=== PATIENT | male | born 1995 | race African-American/Black ===

== ENCOUNTER 2016-07-18 12:26 | Emergency (ER) | payer OTHER, SELFPAY ==
[2016-07-18 13:49] LABS: BASO % 0.5 % (0.0-1.0); EOS # 0.4 K/mm3 (0.0-0.50); EOS % 7.1 % (0.0-3.0); LARGE UNSTAINED CELL # 0.2 K/mm3 (0.0-0.4); LARGE UNSTAINED CELL % 2.7 % (0.0-4.0); LYMPH # 2.2 K/mm3 (1.5-6.5); MEAN CORPUSCULAR HEMOGLOBIN 31.2 pg (27.0-33.0); MEAN CORPUSCULAR HGB CONC 35.1 g/dl (32.0-36.5); MONO # 0.4 K/mm3 (0.0-0.8); NEUTROPHILS # 2.8 K/mm3 (1.8-7.7); NEUTROPHILS % 47.6 % (36.0-66.0); PLATELET COUNT, AUTOMATED 224 k/mm3 (150-450); RED CELL DISTRIBUTION WIDTH 11.5 % (11.5-14.5)
[2016-07-18 14:05] LABS: ALBUMIN 3.7 GM/DL (3.2-5.2); ALBUMIN/GLOBULIN RATIO 1.19 (1.00-1.93); ALKALINE PHOSPHATASE 118 U/L (45-117); ALT/SGPT 33 U/L (12-78); ANION GAP 10 MEQ/L (8-16); AST/SGOT 25 U/L (15-37); BILIRUBIN,DIRECT 0.1 MG/DL (0.0-0.2); BILIRUBIN,TOTAL 0.3 MG/DL (0.2-1.0); BLOOD UREA NITROGEN 18 MG/DL (7-18); CALCIUM LEVEL 8.6 MG/DL (8.5-10.1); CARBON DIOXIDE LEVEL 26 MEQ/L (21-32); CHLORIDE LEVEL 110 MEQ/L (98-107); CREATININE FOR GFR 0.89 MG/DL (0.70-1.30); GLOMERULAR FILTRATION RATE > 60.0 (>60); GLUCOSE, FASTING 89 MG/DL (70-105); POTASSIUM SERUM 3.7 MEQ/L (3.5-5.1); SODIUM LEVEL 146 MEQ/L (136-145); TOTAL PROTEIN 6.8 GM/DL (6.4-8.2)
--- NOTE | 2016-07-18 15:04 | REP ---
Clinical: Right-sided pain. Comparison: 06/01/2016. Findings: Examination is limited by paucity of intraperitoneal fat along with lack of intravenous and oral contrast. Kidneys demonstrate nephrolithiasis with small bilateral intrarenal calculi measuring up to 2 mm and no obvious hydronephrosis/hydroureter or obstructing ureteral calculi. Liver, spleen, pancreas, collapsed gallbladder, bilateral adrenal glands are normal for noncontrast evaluation. The enteric system is without obvious obstruction or acute inflammatory process. Normal appendix identified in the right lower quadrant. Pelvis demonstrates normal bladder and age appropriate prostate/seminal vesicles. No obvious free fluid. No free air. Lung bases clear. Impression: Limited examination as noted above. No obvious acute intra-abdominal or pelvic pathology is appreciated. Nephrolithiasis noted correlation with urinalysis is recommended and if necessary post contrast CT may be were obtained. Signed by Yuniel Mathew MD 07/18/2016 02:55 P
[2016-07-18] MEDS ORDERED: KETOROLAC 30 MG/ML VIAL (J1885) As Ordered ONE (15:53)
--- NOTE | 2016-07-18 16:21 | EDDOCDS ---
Physician Documentation [facility] Name: Migue Salvador Age: 21 yrs Sex: Male : 1995 Arrival Date: 07/18/2016 Time: 12:26 Bed 18 Private MD: Koby Jose W Disposition: 07/18/16 15:54 Discharged to Home/Self Care. Impression: Hematuria, unspecified, Calculus of kidney. - Condition is Stable. - Discharge Instructions: Hematuria, Adult, Kidney Stones. - Medication Reconciliation, Local Pharmacy Hours form. - [facility]; When: Call to arrange an appointment; Reason: Recheck today's complaints. Follow up: [facility]; When: Call to arrange an appointment; Reason: Continuance of care. - Problem is new. - Symptoms have improved. Historical: - Allergies: no known allergies; - Home Meds: 1. none - PMHx: Kidney stones; - PSHx: R foot surgery; R arm surgery; R wrist surgery; - Social history: Smoking status: Patient states was never smoker of tobacco. No barriers to communication noted, The patient speaks fluent Greenlandic. - Family history: Not pertinent. - : The pt / caregiver states he / she is not on anticoagulants. Home medication list is obtained from the patient. - Exposure Risk Screening:: None identified. Vital Signs: 07/18 12:28 BP 139 / 64; Pulse 65; Resp 18 S; Temp 96.2(O); Pulse Ox 100% on R/A; Weight 68.04 kg / gr2 150 lbs (R); Height 6 ft. 0 in. (182.88 cm) (R); Pain 8/10; 16:16 BP 116 / 70; Pulse 60; Resp 18; Temp 96.8(O); Pulse Ox 99% on R/A; Pain 6/10; nb2 12:28 Body Mass Index 20.34 (68.04 kg, 182.88 cm) gr2 MDM: 13:18 Undress patient appropriately for examination ordered. fg 13:18 IV Saline Lock ordered. fg 13:19 Basic Metabolic Profile Ordered. EDMS 13:19 CBC with Diff Ordered. EDMS 13:19 Lipase Ordered. EDMS 13:19 Liver Profile Ordered. EDMS 13:19 Urinalysis Ordered. EDMS 13:19 Urine Culture Ordered. EDMS 13:19 NOTHING BY MOUTH+DIET ordered. EDMS 13:40 Financial registration complete. lg 14:08 CT ABD & PELVIS: No Contrast Ordered. EDMS 15:10 [facility] Payment Agreement was scanned into [employer] and attached to record. lg 15:50 ketorolac 30 mg IVP once ordered. fg Administered Medications: 15:57 Drug: ketorolac 30 mg [ketorolac 30 mg/mL (1 mL) injection solution (1 mL)] Route: IVP; jmk Site: right antecubital; Signatures: Dispatcher [employer] EDMS Emili Moseley, RN RN srm Pedro Cruz, Reg Reg Gabbie Serna RN RN hs1 Vidya Simental RN RN ms18 Laura De La Cruz MD MD Matthew Molina RN The chart was reviewed and I authenticate all verbal orders and agree with the evaluation and treatment provided.Attachments: 15:10 [facility] Payment Agreement lg MTDD
--- NOTE | 2016-07-18 16:21 | EDDOCDS ---
[facility] Name: Migue Salvador Age: 21 yrs Sex: Male : 1995 Arrival Date: 07/18/2016 Time: 12:26 Bed 18 Private MD: Koby Jose W Diagnosis: Hematuria, unspecified;Calculus of kidney Presentation: 07/18 12:47 Presenting complaint: Patient states: that he has kidney stones and has pain on his R ms18 side. Pt also reports "peeing blood at work last night". Acute neurological deficits are not present. Mechanism of Injury: No Mechanism of Injury. Adult Sepsis Screening: The patient does not have new or worsening altered mentation. Patient's respiratory rate is less than 22. Systolic blood pressure is greater than 100. Patient has a qSOFA score of 0- Negative Sepsis Screen. Suicide/Homicide risk assessment- the patient denies having any suicidal and/or homicidal ideations and does not present with any other emotional, behavioral or mental health complaints. 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 Transition of care: patient was not received from another setting of care. 12:47 Acuity: AMINATA Level 3 ms18 12:47 Method Of Arrival: Walkin/Carried/Asstd ms18 Triage Assessment: 12:50 General: Appears in no apparent distress, slender, uncomfortable, Behavior is ms18 appropriate for age, cooperative. Pain: Location: right flank Pain currently is 10 out of 10 on a pain scale. HIV screening NA for this visit Offered previously. Neurological: Level of Consciousness is awake, alert, obeys commands, Oriented to person, place, time. Respiratory: No deficits noted. Derm: Skin is pink, warm & dry. Musculoskeletal: No deficits noted. Historical: - Allergies: no known allergies; - Home Meds: 1. none - PMHx: Kidney stones; - PSHx: R foot surgery; R arm surgery; R wrist surgery; - Social history: Smoking status: Patient states was never smoker of tobacco. No barriers to communication noted, The patient speaks fluent Slovenian. - Family history: Not pertinent. - : The pt / caregiver states he / she is not on anticoagulants. Home medication list is obtained from the patient. - Exposure Risk Screening:: None identified. Screenin:08 Screening information is obtained from the patient. Fall risk: No risks identified. srm Assistance ADL's: requires no assistance with activities of daily living. Abuse/DV Screen: The patient / caregiver reports he/she is: not in a situation that causes fear, pain or injury. Nutritional screening: No deficits noted. Advance Directives: There is no active DNR order. home support is adequate. Assessment: 13:08 General: Appears in no apparent distress, Behavior is appropriate for age, cooperative. srm Neurological: No deficits noted. EENT: No deficits noted. GI: Reports diarrhea x3 sat night. : Reports hematuria. Derm: No deficits noted. 13:38 General: Appears in no apparent distress, Behavior is cooperative, resting supine on jf3 stretcher. respirations easy and unlabored. 14:27 General: Appears in no apparent distress, Behavior is appropriate for age, cooperative. hs1 Pain: Location: anterior aspect of right lateral abdomen and posterior aspect of right lateral abdomen Pain currently is 7 out of 10 on a pain scale. Neurological: No deficits noted. EENT: No deficits noted. GI: No deficits noted. Derm: No deficits noted. 15:56 General: Appears awakened from sleep to report 10/10 discomfort to right flank area. jmk very easily accommodates position changes. 16:19 General: Appears in no apparent distress, comfortable, Behavior is appropriate for age, hs1 cooperative. Pain: Location: right flank. Respiratory: No deficits noted. GI: No deficits noted. :. Derm: Skin is pink, warm & dry. normal. Vital Signs: 12:28 BP 139 / 64; Pulse 65; Resp 18 S; Temp 96.2(O); Pulse Ox 100% on R/A; Weight 68.04 kg gr2 (R); Height 6 ft. 0 in. (182.88 cm) (R); Pain 8/10; 16:16 BP 116 / 70; Pulse 60; Resp 18; Temp 96.8(O); Pulse Ox 99% on R/A; Pain 6/10; nb2 12:28 Body Mass Index 20.34 (68.04 kg, 182.88 cm) gr2 Vitals: 12:28 Log In Time: July 18, 2016 at 12:28. gr2 ED Course: 12:28 Patient visited by Ramakrishna Morse. gr2 12:28 Koby Jose is Private Physician. gr2 12:28 Patient moved to Waiting gr2 12:30 Patient visited by Ramakrishna Morse. gr2 12:30 Patient moved to Pre RCE gr2 12:49 Triage Initiated ms18 13:04 Patient moved to 18 kcs 13:08 The patient / caregiver is instructed regarding the plan of care and ED course. Patient srm has correct armband on for positive identification. 13:16 Patient visited by Emili Moseley RN. srm 13:16 Laura De La Cruz MD is Attending Physician. fg 13:38 Basic Metabolic Profile Sent. jf3 13:38 CBC with Diff Sent. jf3 13:38 Lipase Sent. jf3 13:38 Liver Profile Sent. jf3 13:38 Urinalysis Sent. jf3 13:38 Urine Culture Sent. jf3 13:38 Inserted saline lock: 20 gauge in right antecubital area The patient tolerated the jf3 procedure well. No procedures done that require assistance. 13:40 Patient visited by Laura De La Cruz MD. fg 13:43 Patient visited by Torin Capps RN. jf3 14:28 Patient visited by Gabbie Serna RN. hs1 15:09 Patient visited by Gabbie Serna RN. hs1 15:10 [facility] [place] was scanned into [employer] and attached to record. lg 15:18 CT ABD & PELVIS: No Contrast Returned. EDMS 15:51 [facility] is Referral Physician. fg 15:55 [facility] is Referral Physician. fg 16:17 Patient visited by Karina Bhandari. nb2 Administered Medications: 15:57 Drug: ketorolac 30 mg [ketorolac 30 mg/mL (1 mL) injection solution (1 mL)] Route: IVP; jmk Site: right antecubital; Order Results: Lab Order: Basic Metabolic Profile; SPEC'M 07/18/16 13:36 Test: GLUCOSE, FASTING; Value: 89; Range: 70-105; Units: MG/DL; Status: F Test: BLOOD UREA NITROGEN; Value: 18; Range: 7-18; Units: MG/DL; Status: F Test: CREATININE FOR GFR; Value: 0.89; Range: 0.70-1.30; Units: MG/DL; Status: F Test: GLOMERULAR FILTRATION RATE; Value: > 60.0; Range: >60; Status: F Test: SODIUM LEVEL; Value: 146; Range: 136-145; Abnormal: Above high normal; Units: MEQ/L; Status: F Test: POTASSIUM SERUM; Value: 3.7; Range: 3.5-5.1; Units: MEQ/L; Status: F Test: CHLORIDE LEVEL; Value: 110; Range: 98-107; Abnormal: Above high normal; Units: MEQ/L; Status: F Test: CARBON DIOXIDE LEVEL; Value: 26; Range: 21-32; Units: MEQ/L; Status: F Test: ANION GAP; Value: 10; Range: 8-16; Units: MEQ/L; Status: F Test: CALCIUM LEVEL; Value: 8.6; Range: 8.5-10.1; Units: MG/DL; Status: F Test Note: ; Units are mL/min/1.73 m2 Chronic Kidney Disease Staging per NKF: Stage I & II GFR >=60 Normal to Mildly Decreased Stage III GFR 30-59 Moderately Decreased Stage IV GFR 15-29 Severely Decreased Stage V GFR <15 Very Little GFR Left ESRD GFR <15 on HAND CROWN POUNCER Lab Order: CBC with Diff; SPEC'M 07/18/16 13:36 Test: WHITE BLOOD COUNT; Value: 6.0; Range: 4.0-10.0; Units: K/mm3; Status: F Test: RED BLOOD COUNT; Value: 4.30; Range: 4.30-6.10; Units: M/mm3; Status: F Test: HEMOGLOBIN; Value: 13.4; Range: 14.0-18.0; Abnormal: Below low normal; Units: g/dl; Status: F Test: HEMATOCRIT; Value: 38.2; Range: 42.0-52.0; Abnormal: Below low normal; Units: %; Status: F Test: MEAN CORPUSCULAR VOLUME; Value: 89.0; Range: 80.0-96.0; Units: fl; Status: F Test: MEAN CORPUSCULAR HEMOGLOBIN; Value: 31.2; Range: 27.0-33.0; Units: pg; Status: F Test: MEAN CORPUSCULAR HGB CONC; Value: 35.1; Range: 32.0-36.5; Units: g/dl; Status: F Test: RED CELL DISTRIBUTION WIDTH; Value: 11.5; Range: 11.5-14.5; Units: %; Status: F Test: PLATELET COUNT, AUTOMATED; Value: 224; Range: 150-450; Units: k/mm3; Status: F Test: NEUTROPHILS %; Value: 47.6; Range: 36.0-66.0; Units: %; Status: F Test: LYMPH %; Value: 36.0; Range: 24.0-44.0; Units: %; Status: F Test: MONO %; Value: 6.0; Range: 0.0-5.0; Abnormal: Above high normal; Units: %; Status: F Test: EOS %; Value: 7.1; Range: 0.0-3.0; Abnormal: Above high normal; Units: %; Status: F Test: BASO %; Value: 0.5; Range: 0.0-1.0; Units: %; Status: F Test: LARGE UNSTAINED CELL %; Value: 2.7; Range: 0.0-4.0; Units: %; Status: F Test: NEUTROPHILS #; Value: 2.8; Range: 1.8-7.7; Units: K/mm3; Status: F Test: LYMPH #; Value: 2.2; Range: 1.5-6.5; Units: K/mm3; Status: F Test: MONO #; Value: 0.4; Range: 0.0-0.8; Units: K/mm3; Status: F Test: EOS #; Value: 0.4; Range: 0.0-0.50; Units: K/mm3; Status: F Test: BASO #; Value: 0.0; Range: 0.0-0.2; Units: K/mm3; Status: F Test: LARGE UNSTAINED CELL #; Value: 0.2; Range: 0.0-0.4; Units: K/mm3; Status: F Lab Order: Lipase; SPEC'M 07/18/16 13:36 Test: LIPASE; Value: 193; Range: 73-393; Units: U/L; Status: F Lab Order: Liver Profile; SPEC'M 07/18/16 13:36 Test: AST/SGOT; Value: 25; Range: 15-37; Units: U/L; Status: F Test: ALT/SGPT; Value: 33; Range: 12-78; Units: U/L; Status: F Test: ALKALINE PHOSPHATASE; Value: 118; Range: 45-117; Abnormal: Above high normal; Units: U/L; Status: F Test: BILIRUBIN,TOTAL; Value: 0.3; Range: 0.2-1.0; Units: MG/DL; Status: F Test: BILIRUBIN,DIRECT; Value: 0.1; Range: 0.0-0.2; Units: MG/DL; Status: F Test: TOTAL PROTEIN; Value: 6.8; Range: 6.4-8.2; Units: GM/DL; Status: F Test: ALBUMIN; Value: 3.7; Range: 3.2-5.2; Units: GM/DL; Status: F Test: ALBUMIN/GLOBULIN RATIO; Value: 1.19; Range: 1.00-1.93; Status: F Lab Order: Urinalysis; SPEC'M 07/18/16 13:36 Test: APPEARANCE, URINE; Value: HAZY; Range: CLEAR; Status: F Test: COLOR, URINE; Value: YELLOW; Range: YELLOW; Status: F Test: PH,URINE; Value: 6.0; Range: 5.0-9.0; Units: UNITS; Status: F Test: SPECIFIC GRAVITY URINE AUTO; Value: 1.021; Range: 1.002-1.035; Status: F Test: PROTEIN, URINE AUTO; Value: 1+; Range: NEGATIVE; Abnormal: Above high normal; Units: mg/dL; Status: F Test: GLUCOSE, URINE (UA) AUTO; Value: NEGATIVE; Range: NEGATIVE; Units: mg/dL; Status: F Test: KETONE, URINE AUTO; Value: NEGATIVE; Range: NEGATIVE; Units: mg/dL; Status: F Test: UROBILINOGEN, URINE AUTO; Value: 0.2; Range: 0.0-2.0; Units: mg/dL; Status: F Test: BILIRUBIN, URINE AUTO; Value: NEGATIVE; Range: NEGATIVE; Status: F Test: NITRITE, URINE AUTO; Value: NEGATIVE; Range: NEGATIVE; Status: F Test: LEUKOCYTE ESTERASE, URINE AUTO; Value: NEGATIVE; Range: NEGATIVE; Status: F Test: BLOOD, URINE BLOOD; Value: 3+; Range: NEGATIVE; Abnormal: Above high normal; Status: F Test: WBC, URINE AUTO; Value: 0; Range: 0-3; Units: /HPF; Status: F Test: RBC, URINE AUTO; Value: TNTC; Range: 0-3; Abnormal: Above high normal; Units: /HPF; Status: F Test: BACTERIA, URINE AUTO; Value: NEGATIVE; Range: NEGATIVE; Status: F Test: SQUAMOUS EPITHELIAL CELL UR AU; Value: 0; Range: 0-6; Units: /HPF; Status: F Test: HYALINE CAST, URINE AUTO; Value: 0; Range: 0-1; Units: /LPF; Status: F Radiology Order: CT ABD & PELVIS: No Contrast Test: CT ABD & PELVIS: No Contrast REASON FOR EXAMINATION: Abdomen Pain; Clinical: Right-sided pain.; ; Comparison: 06/01/2016.; ; Findings:; ; Examination is limited by paucity of intraperitoneal fat along with lack of; intravenous and oral contrast.; ; Kidneys demonstrate nephrolithiasis with small bilateral intrarenal calculi; measuring up to 2 mm and no obvious hydronephrosis/hydroureter or obstructing; ureteral calculi.; ; Liver, spleen, pancreas, collapsed gallbladder, bilateral adrenal glands are; normal for noncontrast evaluation. The enteric system is without obvious; obstruction or acute inflammatory process. Normal appendix identified in the; right lower quadrant. Pelvis demonstrates normal bladder and age appropriate; prostate/seminal vesicles. No obvious free fluid. No free air. Lung bases; clear.; ; Impression:; Limited examination as noted above.; No obvious acute intra-abdominal or pelvic pathology is appreciated.; Nephrolithiasis noted correlation with urinalysis is recommended and if necessary; post contrast CT may be were obtained.; ; ; Signed by; Yuniel Mathew MD 07/18/2016 02:55 P; Outcome: 15:54 Discharge ordered by Provider. fg 16:20 Discharge Assessment: Patient awake, alert and oriented x 3. No cognitive and/or hs1 functional deficits noted. Patient verbalized understanding of disposition instructions. patient administered narcotics - no. The following High Risk Discharge criteria are identified: None. Discharged to home ambulatory. Condition: good. Discharge instructions given to patient, Instructed on discharge instructions, follow up and referral plans. medication usage, Demonstrated understanding of instructions, medications, Pt was receptive of discharge instructions/ teaching. CT Study completed. Property sent home with patient. 16:20 Patient left the ED. hs1 Signatures: Dispatcher [employer] EDAlyssa Grimes, RN RN Matthew Felipe RN RN jmk Michelson, Staci, RN RN Pedro Hoover, Reg Reg lg Gabbie Serna RN RN hs1 Ramakrishna Morse gr2 Vidya Simental RN RN ms18 Laura De La Cruz MD MD Torin Capps RN RN jf3 Karina Bhandari2 MTDD
--- NOTE | 2016-07-20 17:22 | EDDOCDS ---
Nurse's Notes [facility] Name: Migue Salvador Age: 21 yrs Sex: Male : 1995 Arrival Date: 07/18/2016 Time: 12:26 Bed 18 Private MD: Koby Jose W Diagnosis: Hematuria, unspecified;Calculus of kidney Presentation: 07/18 12:47 Presenting complaint: Patient states: that he has kidney stones and has pain on his R ms18 side. Pt also reports "peeing blood at work last night". Acute neurological deficits are not present. Mechanism of Injury: No Mechanism of Injury. Adult Sepsis Screening: The patient does not have new or worsening altered mentation. Patient's respiratory rate is less than 22. Systolic blood pressure is greater than 100. Patient has a qSOFA score of 0- Negative Sepsis Screen. Suicide/Homicide risk assessment- the patient denies having any suicidal and/or homicidal ideations and does not present with any other emotional, behavioral or mental health complaints. Status: Patient is not a service center appraiser or dependent. Transition of care: patient was not received from another setting of care. 12:47 Acuity: AMINATA Level 3 ms18 12:47 Method Of Arrival: Walkin/Carried/Asstd ms18 Triage Assessment: 12:50 General: Appears in no apparent distress, slender, uncomfortable, Behavior is ms18 appropriate for age, cooperative. Pain: Location: right flank Pain currently is 10 out of 10 on a pain scale. HIV screening NA for this visit Offered previously. Neurological: Level of Consciousness is awake, alert, obeys commands, Oriented to person, place, time. Respiratory: No deficits noted. Derm: Skin is pink, warm & dry. Musculoskeletal: No deficits noted. Historical: - Allergies: no known allergies; - Home Meds: 1. none - PMHx: Kidney stones; - PSHx: R foot surgery; R arm surgery; R wrist surgery; - Social history: Smoking status: Patient states was never smoker of tobacco. No barriers to communication noted, The patient speaks fluent Kazakh. - Family history: Not pertinent. - : The pt / caregiver states he / she is not on anticoagulants. Home medication list is obtained from the patient. - Exposure Risk Screening:: None identified. Screenin:08 Screening information is obtained from the patient. Fall risk: No risks identified. srm Assistance ADL's: requires no assistance with activities of daily living. Abuse/DV Screen: The patient / caregiver reports he/she is: not in a situation that causes fear, pain or injury. Nutritional screening: No deficits noted. Advance Directives: There is no active DNR order. home support is adequate. Assessment: 13:08 General: Appears in no apparent distress, Behavior is appropriate for age, cooperative. srm Neurological: No deficits noted. EENT: No deficits noted. GI: Reports diarrhea x3 sat night. : Reports hematuria. Derm: No deficits noted. 13:38 General: Appears in no apparent distress, Behavior is cooperative, resting supine on jf3 stretcher. respirations easy and unlabored. 14:27 General: Appears in no apparent distress, Behavior is appropriate for age, cooperative. hs1 Pain: Location: anterior aspect of right lateral abdomen and posterior aspect of right lateral abdomen Pain currently is 7 out of 10 on a pain scale. Neurological: No deficits noted. EENT: No deficits noted. GI: No deficits noted. Derm: No deficits noted. 15:56 General: Appears awakened from sleep to report 10/10 discomfort to right flank area. jmk very easily accommodates position changes. 16:19 General: Appears in no apparent distress, comfortable, Behavior is appropriate for age, hs1 cooperative. Pain: Location: right flank. Respiratory: No deficits noted. GI: No deficits noted. :. Derm: Skin is pink, warm & dry. normal. Vital Signs: 12:28 BP 139 / 64; Pulse 65; Resp 18 S; Temp 96.2(O); Pulse Ox 100% on R/A; Weight 68.04 kg gr2 (R); Height 6 ft. 0 in. (182.88 cm) (R); Pain 8/10; 16:16 BP 116 / 70; Pulse 60; Resp 18; Temp 96.8(O); Pulse Ox 99% on R/A; Pain 6/10; nb2 12:28 Body Mass Index 20.34 (68.04 kg, 182.88 cm) gr2 Vitals: 12:28 Log In Time: July 18, 2016 at 12:28. gr2 ED Course: 12:28 Patient visited by Ramakrishna Morse. gr2 12:28 Koby Jose is Private Physician. gr2 12:28 Patient moved to Waiting gr2 12:30 Patient visited by Ramakrishna Morse. gr2 12:30 Patient moved to Pre RCE gr2 12:49 Triage Initiated ms18 13:04 Patient moved to 18 kcs 13:08 The patient / caregiver is instructed regarding the plan of care and ED course. Patient srm has correct armband on for positive identification. 13:16 Patient visited by Emili Moseley RN. srm 13:16 Laura De La Cruz MD is Attending Physician. fg 13:38 Basic Metabolic Profile Sent. jf3 13:38 CBC with Diff Sent. jf3 13:38 Lipase Sent. jf3 13:38 Liver Profile Sent. jf3 13:38 Urinalysis Sent. jf3 13:38 Urine Culture Sent. jf3 13:38 Inserted saline lock: 20 gauge in right antecubital area The patient tolerated the jf3 procedure well. No procedures done that require assistance. 13:40 Patient visited by Laura De La Cruz MD. fg 13:43 Patient visited by Torin Capps RN. jf3 14:28 Patient visited by Gabbie Serna RN. hs1 15:09 Patient visited by Gabbie Serna RN. hs1 15:10 [facility] Payment Agreement was scanned into [employer] and attached to record. lg 15:18 CT ABD & PELVIS: No Contrast Returned. EDMS 15:51 [facility] is Referral Physician. fg 15:55 Ad[facility] Farrell is Referral Physician. fg 16:17 Patient visited by Karina Bhandari. nb2 07/19 04:00 T-Sheet-- Draft Copy was scanned into [employer] and attached to record. hs2 09:58 Radiology Report was scanned into [employer] and attached to record. gb Administered Medications: 07/18 15:57 Drug: ketorolac 30 mg [ketorolac 30 mg/mL (1 mL) injection solution (1 mL)] Route: IVP; daniel Site: right antecubital; Order Results: Lab Order: Basic Metabolic Profile; SPEC'M 07/18/16 13:36 Test: GLUCOSE, FASTING; Value: 89; Range: 70-105; Units: MG/DL; Status: F Test: BLOOD UREA NITROGEN; Value: 18; Range: 7-18; Units: MG/DL; Status: F Test: CREATININE FOR GFR; Value: 0.89; Range: 0.70-1.30; Units: MG/DL; Status: F Test: GLOMERULAR FILTRATION RATE; Value: > 60.0; Range: >60; Status: F Test: SODIUM LEVEL; Value: 146; Range: 136-145; Abnormal: Above high normal; Units: MEQ/L; Status: F Test: POTASSIUM SERUM; Value: 3.7; Range: 3.5-5.1; Units: MEQ/L; Status: F Test: CHLORIDE LEVEL; Value: 110; Range: 98-107; Abnormal: Above high normal; Units: MEQ/L; Status: F Test: CARBON DIOXIDE LEVEL; Value: 26; Range: 21-32; Units: MEQ/L; Status: F Test: ANION GAP; Value: 10; Range: 8-16; Units: MEQ/L; Status: F Test: CALCIUM LEVEL; Value: 8.6; Range: 8.5-10.1; Units: MG/DL; Status: F Test Note: ; Units are mL/min/1.73 m2 Chronic Kidney Disease Staging per NKF: Stage I & II GFR >=60 Normal to Mildly Decreased Stage III GFR 30-59 Moderately Decreased Stage IV GFR 15-29 Severely Decreased Stage V GFR <15 Very Little GFR Left ESRD GFR <15 on SANITATION LEAD Lab Order: CBC with Diff; SPEC'M 07/18/16 13:36 Test: WHITE BLOOD COUNT; Value: 6.0; Range: 4.0-10.0; Units: K/mm3; Status: F Test: RED BLOOD COUNT; Value: 4.30; Range: 4.30-6.10; Units: M/mm3; Status: F Test: HEMOGLOBIN; Value: 13.4; Range: 14.0-18.0; Abnormal: Below low normal; Units: g/dl; Status: F Test: HEMATOCRIT; Value: 38.2; Range: 42.0-52.0; Abnormal: Below low normal; Units: %; Status: F Test: MEAN CORPUSCULAR VOLUME; Value: 89.0; Range: 80.0-96.0; Units: fl; Status: F Test: MEAN CORPUSCULAR HEMOGLOBIN; Value: 31.2; Range: 27.0-33.0; Units: pg; Status: F Test: MEAN CORPUSCULAR HGB CONC; Value: 35.1; Range: 32.0-36.5; Units: g/dl; Status: F Test: RED CELL DISTRIBUTION WIDTH; Value: 11.5; Range: 11.5-14.5; Units: %; Status: F Test: PLATELET COUNT, AUTOMATED; Value: 224; Range: 150-450; Units: k/mm3; Status: F Test: NEUTROPHILS %; Value: 47.6; Range: 36.0-66.0; Units: %; Status: F Test: LYMPH %; Value: 36.0; Range: 24.0-44.0; Units: %; Status: F Test: MONO %; Value: 6.0; Range: 0.0-5.0; Abnormal: Above high normal; Units: %; Status: F Test: EOS %; Value: 7.1; Range: 0.0-3.0; Abnormal: Above high normal; Units: %; Status: F Test: BASO %; Value: 0.5; Range: 0.0-1.0; Units: %; Status: F Test: LARGE UNSTAINED CELL %; Value: 2.7; Range: 0.0-4.0; Units: %; Status: F Test: NEUTROPHILS #; Value: 2.8; Range: 1.8-7.7; Units: K/mm3; Status: F Test: LYMPH #; Value: 2.2; Range: 1.5-6.5; Units: K/mm3; Status: F Test: MONO #; Value: 0.4; Range: 0.0-0.8; Units: K/mm3; Status: F Test: EOS #; Value: 0.4; Range: 0.0-0.50; Units: K/mm3; Status: F Test: BASO #; Value: 0.0; Range: 0.0-0.2; Units: K/mm3; Status: F Test: LARGE UNSTAINED CELL #; Value: 0.2; Range: 0.0-0.4; Units: K/mm3; Status: F Lab Order: Lipase; SPEC'M 07/18/16 13:36 Test: LIPASE; Value: 193; Range: 73-393; Units: U/L; Status: F Lab Order: Liver Profile; SPEC'M 07/18/16 13:36 Test: AST/SGOT; Value: 25; Range: 15-37; Units: U/L; Status: F Test: ALT/SGPT; Value: 33; Range: 12-78; Units: U/L; Status: F Test: ALKALINE PHOSPHATASE; Value: 118; Range: 45-117; Abnormal: Above high normal; Units: U/L; Status: F Test: BILIRUBIN,TOTAL; Value: 0.3; Range: 0.2-1.0; Units: MG/DL; Status: F Test: BILIRUBIN,DIRECT; Value: 0.1; Range: 0.0-0.2; Units: MG/DL; Status: F Test: TOTAL PROTEIN; Value: 6.8; Range: 6.4-8.2; Units: GM/DL; Status: F Test: ALBUMIN; Value: 3.7; Range: 3.2-5.2; Units: GM/DL; Status: F Test: ALBUMIN/GLOBULIN RATIO; Value: 1.19; Range: 1.00-1.93; Status: F Lab Order: Urinalysis; SPEC'M 07/18/16 13:36 Test: APPEARANCE, URINE; Value: HAZY; Range: CLEAR; Status: F Test: COLOR, URINE; Value: YELLOW; Range: YELLOW; Status: F Test: PH,URINE; Value: 6.0; Range: 5.0-9.0; Units: UNITS; Status: F Test: SPECIFIC GRAVITY URINE AUTO; Value: 1.021; Range: 1.002-1.035; Status: F Test: PROTEIN, URINE AUTO; Value: 1+; Range: NEGATIVE; Abnormal: Above high normal; Units: mg/dL; Status: F Test: GLUCOSE, URINE (UA) AUTO; Value: NEGATIVE; Range: NEGATIVE; Units: mg/dL; Status: F Test: KETONE, URINE AUTO; Value: NEGATIVE; Range: NEGATIVE; Units: mg/dL; Status: F Test: UROBILINOGEN, URINE AUTO; Value: 0.2; Range: 0.0-2.0; Units: mg/dL; Status: F Test: BILIRUBIN, URINE AUTO; Value: NEGATIVE; Range: NEGATIVE; Status: F Test: NITRITE, URINE AUTO; Value: NEGATIVE; Range: NEGATIVE; Status: F Test: LEUKOCYTE ESTERASE, URINE AUTO; Value: NEGATIVE; Range: NEGATIVE; Status: F Test: BLOOD, URINE BLOOD; Value: 3+; Range: NEGATIVE; Abnormal: Above high normal; Status: F Test: WBC, URINE AUTO; Value: 0; Range: 0-3; Units: /HPF; Status: F Test: RBC, URINE AUTO; Value: TNTC; Range: 0-3; Abnormal: Above high normal; Units: /HPF; Status: F Test: BACTERIA, URINE AUTO; Value: NEGATIVE; Range: NEGATIVE; Status: F Test: SQUAMOUS EPITHELIAL CELL UR AU; Value: 0; Range: 0-6; Units: /HPF; Status: F Test: HYALINE CAST, URINE AUTO; Value: 0; Range: 0-1; Units: /LPF; Status: F Lab Order: Urine Culture; SPEC'M 07/18/16 13:36 Test: URINE CULTURE; Value: URINE CULTURE RESULT; Status: F Test: URINE CULTURE; Value: NO GROWTH CLINICAL SIGNIFICANCE 2 OR MORE ORGANISMS; Status: F Radiology Order: CT ABD & PELVIS: No Contrast Test: CT ABD & PELVIS: No Contrast REASON FOR EXAMINATION: Abdomen Pain; Clinical: Right-sided pain.; ; Comparison: 06/01/2016.; ; Findings:; ; Examination is limited by paucity of intraperitoneal fat along with lack of; intravenous and oral contrast.; ; Kidneys demonstrate nephrolithiasis with small bilateral intrarenal calculi; measuring up to 2 mm and no obvious hydronephrosis/hydroureter or obstructing; ureteral calculi.; ; Liver, spleen, pancreas, collapsed gallbladder, bilateral adrenal glands are; normal for noncontrast evaluation. The enteric system is without obvious; obstruction or acute inflammatory process. Normal appendix identified in the; right lower quadrant. Pelvis demonstrates normal bladder and age appropriate; prostate/seminal vesicles. No obvious free fluid. No free air. Lung bases; clear.; ; Impression:; Limited examination as noted above.; No obvious acute intra-abdominal or pelvic pathology is appreciated.; Nephrolithiasis noted correlation with urinalysis is recommended and if necessary; post contrast CT may be were obtained.; ; ; Signed by; Yuniel Mathew MD 07/18/2016 02:55 P; Outcome: 15:54 Discharge ordered by Provider. fg 16:20 Discharge Assessment: Patient awake, alert and oriented x 3. No cognitive and/or hs1 functional deficits noted. Patient verbalized understanding of disposition instructions. patient administered narcotics - no. The following High Risk Discharge criteria are identified: None. Discharged to home ambulatory. Condition: good. Discharge instructions given to patient, Instructed on discharge instructions, follow up and referral plans. medication usage, Demonstrated understanding of instructions, medications, Pt was receptive of discharge instructions/ teaching. CT Study completed. Property sent home with patient. 16:20 Patient left the ED. hs1 Signatures: Dispatcher [employer] EDMS Alyssa Benoit, RN RN Matthew FelipeRN RN Emili Echevarria, RN RN [facility] Magdalena Kam, Reg Reg gb Pedro Cruz, Reg Reg lg Gabbie Serna RN RN hs1 Ramakrishna Morse gr2 Vidya Simental RN RN ms18 Laura De La Cruz MD MD Torin Capps,RN RN jf3 Betsy Albright, Reg Reg hs2 Karina Bhandari2 Chart Complete [facility]
--- NOTE | 2016-07-20 17:22 | EDDOCDS ---
Physician Documentation [facility] Name: Migue Salvador Age: 21 yrs Sex: Male : 1995 Arrival Date: 07/18/2016 Time: 12:26 Bed 18 Private MD: Koby Jose W Disposition: 07/18/16 15:54 Discharged to Home/Self Care. Impression: Hematuria, unspecified, Calculus of kidney. - Condition is Stable. - Discharge Instructions: Hematuria, Adult, Kidney Stones. - Medication Reconciliation, Local Pharmacy Hours form. - [facility]; When: Call to arrange an appointment; Reason: Recheck today's complaints. Follow up: Adriel Farrell; When: Call to arrange an appointment; Reason: Continuance of care. - Problem is new. - Symptoms have improved. Historical: - Allergies: no known allergies; - Home Meds: 1. none - PMHx: Kidney stones; - PSHx: R foot surgery; R arm surgery; R wrist surgery; - Social history: Smoking status: Patient states was never smoker of tobacco. No barriers to communication noted, The patient speaks fluent Burmese. - Family history: Not pertinent. - : The pt / caregiver states he / she is not on anticoagulants. Home medication list is obtained from the patient. - Exposure Risk Screening:: None identified. Vital Signs: 07/18 12:28 BP 139 / 64; Pulse 65; Resp 18 S; Temp 96.2(O); Pulse Ox 100% on R/A; Weight 68.04 kg / gr2 150 lbs (R); Height 6 ft. 0 in. (182.88 cm) (R); Pain 8/10; 16:16 BP 116 / 70; Pulse 60; Resp 18; Temp 96.8(O); Pulse Ox 99% on R/A; Pain 6/10; nb2 12:28 Body Mass Index 20.34 (68.04 kg, 182.88 cm) gr2 MDM: 13:18 Undress patient appropriately for examination ordered. fg 13:18 IV Saline Lock ordered. fg 13:19 Basic Metabolic Profile Ordered. EDMS 13:19 CBC with Diff Ordered. EDMS 13:19 Lipase Ordered. EDMS 13:19 Liver Profile Ordered. EDMS 13:19 Urinalysis Ordered. EDMS 13:19 Urine Culture Ordered. EDMS 13:19 NOTHING BY MOUTH+DIET ordered. EDMS 13:40 Financial registration complete. lg 14:08 CT ABD & PELVIS: No Contrast Ordered. EDMS 15:10 [facility] Payment Agreement was scanned into [employer] and attached to record. lg 15:50 ketorolac 30 mg IVP once ordered. fg 07/19 04:00 T-Sheet-- Draft Copy was scanned into [employer] and attached to record. hs2 09:58 Radiology Report was scanned into [employer] and attached to record. gb Administered Medications: 07/18 15:57 Drug: ketorolac 30 mg [ketorolac 30 mg/mL (1 mL) injection solution (1 mL)] Route: IVP; daniel Site: right antecubital; Signatures: Dispatcher [employer] Emili Rodríguez, RN CATHY [facility] Magdalena Kam, Reg Reg gb Pedro Cruz, Reg Reg lg Gabbie Serna RN RN hs1 Vidya Simental RN RN ms18 Laura De La Cruz MD MD Betsy Albright, Reg Reg hs2 Matthew Molina RN The chart was reviewed and I authenticate all verbal orders and agree with the evaluation and treatment provided.Attachments: 15:10 [facility] Payment Agreement lg 07/19 04:00 T-Sheet-- Draft Copy hs2 Chart Complete MTDD
--- NOTE | 2016-07-20 17:22 | EDDOCDS ---
Physician Documentation [facility] Name: Migue Salvador Age: 21 yrs Sex: Male : 1995 Arrival Date: 07/18/2016 Time: 12:26 Bed 18 Private MD: Koby Jose W Disposition: 07/18/16 15:54 Discharged to Home/Self Care. Impression: Hematuria, unspecified, Calculus of kidney. - Condition is Stable. - Discharge Instructions: Hematuria, Adult, Kidney Stones. - Medication Reconciliation, Local Pharmacy Hours form. - [facility] up[facility]; When: Call to arrange an appointment; Reason: Recheck today's complaints. Follow up: Adriel Farrell; When: Call to arrange an appointment; Reason: Continuance of care. - Problem is new. - Symptoms have improved. Historical: - Allergies: no known allergies; - Home Meds: 1. none - PMHx: Kidney stones; - PSHx: R foot surgery; R arm surgery; R wrist surgery; - Social history: Smoking status: Patient states was never smoker of tobacco. No barriers to communication noted, The patient speaks fluent Bruneian. - Family history: Not pertinent. - : The pt / caregiver states he / she is not on anticoagulants. Home medication list is obtained from the patient. - Exposure Risk Screening:: None identified. Vital Signs: 07/18 12:28 BP 139 / 64; Pulse 65; Resp 18 S; Temp 96.2(O); Pulse Ox 100% on R/A; Weight 68.04 kg / gr2 150 lbs (R); Height 6 ft. 0 in. (182.88 cm) (R); Pain 8/10; 16:16 BP 116 / 70; Pulse 60; Resp 18; Temp 96.8(O); Pulse Ox 99% on R/A; Pain 6/10; nb2 12:28 Body Mass Index 20.34 (68.04 kg, 182.88 cm) gr2 MDM: 13:18 Undress patient appropriately for examination ordered. fg 13:18 IV Saline Lock ordered. fg 13:19 Basic Metabolic Profile Ordered. EDMS 13:19 CBC with Diff Ordered. EDMS 13:19 Lipase Ordered. EDMS 13:19 Liver Profile Ordered. EDMS 13:19 Urinalysis Ordered. EDMS 13:19 Urine Culture Ordered. EDMS 13:19 NOTHING BY MOUTH+DIET ordered. EDMS 13:40 Financial registration complete. lg 14:08 CT ABD & PELVIS: No Contrast Ordered. EDMS 15:10 [facility] Payment Agreement was scanned into [employer] and attached to record. lg 15:50 ketorolac 30 mg IVP once ordered. fg 07/19 04:00 T-Sheet-- Draft Copy was scanned into [employer] and attached to record. hs2 09:58 Radiology Report was scanned into [employer] and attached to record. gb Administered Medications: 07/18 15:57 Drug: ketorolac 30 mg [ketorolac 30 mg/mL (1 mL) injection solution (1 mL)] Route: IVP; daniel Site: right antecubital; Signatures: Dispatcher [employer] Emili Rodríguez, RN CATHY [facility] Magdalena Kam, Reg Reg gb Pedro Cruz, Reg Reg lg Gabbie Serna RN RN hs1 Vidya Simental RN RN ms18 Laura De La Cruz MD MD Betsy Albright, Reg Reg hs2 Matthew Molina RN The chart was reviewed and I authenticate all verbal orders and agree with the evaluation and treatment provided.Attachments: 15:10 [facility] Payment Agreement lg 07/19 04:00 T-Sheet-- Draft Copy hs2 Chart Complete MTDD
== END 2016-07-18 16:20 | disposition home or self-care (01) ==
LOC: M ED 12:26
DX: N20.0 Calculus of kidney (principal); R31.9 Hematuria, unspecified
CPT/HCPCS: 74176; 80048; 80076; 81001; 83690; 85025; 87086; 96374; 99284; J1885

== ENCOUNTER 2016-08-23 23:10 | Emergency (ER) | payer OTHER ==
[2016-08-23] MEDS ORDERED: ONDANSETRON 4MG/2ML VIAL (J2405) As Ordered ONE (23:38)
[2016-08-24] MEDS ORDERED: PROMETHAZINE INJ 25 MG/ML VIAL (J2550) As Ordered ONE (01:50)
[2016-08-24] MEDS ORDERED: ONDANSETRON 4 MG ORAL DISINTEGRATING TAB (S0181) As Ordered ONE (03:21)
--- NOTE | 2016-08-24 03:32 | EDDOCDS ---
Physician Documentation [facility] Name: Migue Salvador Age: 21 yrs Sex: Male : 1995 Arrival Date: 08/23/2016 Time: 23:10 Bed 4 Private MD: NO PRIMARY PHYSICIAN, . Disposition: 08/24 01:38 Critical Care: Critical care not applicable. pc Disposition: 08/24/16 03:00 Discharged to Home/Self Care. Impression: Other viral enteritis. - Condition is Stable. - Prescriptions for ZOFRAN ODT 4 mg - dissolve 1 tablet by ORAL route 4 times per day As needed do not chew, do not swallow whole; 10 tablet. - Medication Reconciliation, Local Pharmacy Hours form. - Follow up: Koby Jose DO; When: Call to arrange an appointment; Reason: Continuance of care. - Problem is new. - Symptoms have improved. HPI: 08/23 23:48 This 21 yrs old Male presents to ER via Wheelchair with complaints of pc Nausea/Vomiting/Diarrhea. 23:48 The history is obtained from the patient. He started with n/v/d at 7pm tonight. All of pc his close contacts have had similar complaints in the past week. He denies abdominal pain except preceding emesis. At their worst, the symptoms were moderate. In the emergency department, the symptoms are unchanged. The patient has not experienced similar symptoms in the past. The patient has not recently seen a physician. Historical: - Allergies: No known drug Allergies; - Home Meds: 1. none - PMHx: Kidney stones; - PSHx: screws in right wrist; Temporary screws in bilateral legs; - The history from nurses notes was reviewed: and I agree with what is documented. - Social history: Smoking status: Patient states was never smoker of tobacco. No barriers to communication noted, The patient speaks fluent Serbian, Speaks appropriately for age. - : The pt / caregiver states he / she is not on anticoagulants. Home medication list is obtained from family members. - Hospitalizations: : No recent hospitalization is reported. - Exposure Risk Screening:: None identified. - Immunization history:: All immunizations up-to-date. - Family history: Not pertinent. - Social history:: the patient is a non-smoker, the patient drinks alcohol. ROS: 23:48 All systems are negative except as listed. pc Exam: 23:48 General Appearance: alert, the patient is in moderate distress. pc 23:48 EENT: normal eye inspection, ears, nose and throat normal, pharynx normal, mucous membranes moist 23:48 Neck: The exam reveals no acute abnormalities. ROM is normal and painless. No nuchal rigidity is noted.. 23:48 Respiratory: no respiratory distress, normal breath sounds. 23:48 CVS: regular pulse rate, regular rhythm, normal S1 and S2, no murmurs, strong peripheral pulses. 23:48 Abdomen: soft, non-tender, no organomegaly, bowel sounds hyperactive. 23:48 Back: normal inspection. 23:48 Skin: warm, the skin appears pale, diffusely, diaphoretic. 23:48 Extremities: The extremities have a grossly normal appearance. 23:48 Neuro: oriented x 3, cranial nerves normal as tested, no motor deficits, no sensory deficits. 23:48 Psych: normal mood. Vital Signs: 23:11 BP 149 / 66; Pulse 40; Resp 22 S; Pulse Ox 100% on R/A; Weight 68.04 kg / 150 lbs (R); gr2 Height 6 ft. 1 in. (185.42 cm) (R); Pain 6/10; 23:36 BP 148 / 78 (auto/); af2 23:37 Pulse 56 MON; af2 0208 00:01 Temp 97.1(TE); elida 00:55 BP 122 / 79 Supine; Pulse 62; af2 00:55 BP 167 / 92 Sitting; Pulse 76; af2 00:55 BP 150 / 93 Standing; Pulse 67; af2 01:47 BP 132 / 71; Pulse 86; Resp 18; Temp 98.4(TE); Pulse Ox 99% on R/A; Pain 7/10; elida 03:28 BP 138 / 73; Pulse 62; Resp 20; Temp 96.9(O); Pulse Ox 100% on R/A; Pain 6/10; jmv 08/23 23:11 Body Mass Index 19.79 (68.04 kg, 185.42 cm) gr2 08/23 23:11 TEMP NEEDS TO BE TAKEN gr2 MDM: 23:30 IV Saline Lock ordered. pc 23:30 Ondansetron 4 mg IVP once ordered. pc 23:30 NS 0.9% 1000 ml IV at bolus once ordered. pc 23:48 Differential Diagnosis: VGE. Plan: IVF, meds. pc 08/24 00:41 Orthostatic VS ordered. pc 01:37 Financial registration complete. hs2 01:38 Data reviewed: old medical records, vital signs, nurses notes. Test interpretation: pc none. The patient has been re-examined and re-evaluated. The patient's symptoms have markedly improved after treatment. Disposition: The historical points, examination findings, and any diagnostic results supporting the provided diagnosis, were discussed with the patient or legal guardian. The need for outpatient follow up with the provider listed on their discharge instructions was discussed. They were encouraged to return to [facility], or the nearest ED, if symptoms worsen/persist, or for any other questions/concerns. 01:39 Ondansetron ODT Oral Disintegrating Tablet 4 mg PO Per package directions; dispense 2 pc to go: 1 po q4h prn ordered. 01:50 Promethazine 25 mg IVP once; dilute and administer 30-60 minutes ordered. pc 01:50 NS 0.9% 1000 ml IV at bolus once ordered. pc 01:50 ED course: He was discharged and sitting up asking for water when he had sudden emesis pc x 2. He will have more IVF and meds. Administered Medications: 08/23 23:41 Drug: NS 0.9% 1000 ml [sodium chloride 0.9 % intravenous solution] Route: IV; Rate: af2 bolus; Site: right antecubital; 23:42 Drug: Ondansetron 4 mg [ondansetron HCl 2 mg/mL intravenous solution (2 mL)] Route: af2 IVP; Site: right antecubital; 08/24 01:56 Drug: Promethazine 25 mg [promethazine 25 mg/mL injection solution (1 mL)] Route: IVP; af2 Site: right antecubital; 01:56 Drug: NS 0.9% 1000 ml [sodium chloride 0.9 % intravenous solution] Route: IV; Rate: af2 bolus; Site: right antecubital; 03:30 Drug: Ondansetron ODT 4 mg [ondansetron 4 mg disintegrating tablet (1 tabs)] Route: PO; af2 Signatures: Seamus Velarde MD MD pc Fulton, Amber, RN RN af2 Carlos Alberto Ortiz RN RN nn1 Betsy Albright, Reg Reg hs2 MTDD
--- NOTE | 2016-08-24 03:33 | EDDOCDS ---
Nurse's Notes [facility] Name: Migue Salvador Age: 21 yrs Sex: Male : 1995 Arrival Date: 08/23/2016 Time: 23:10 Bed 4 Private MD: NO PRIMARY PHYSICIAN, . Diagnosis: Other viral enteritis Presentation: 08/23 23:21 Presenting complaint: Patient states: nausea/vomiting and diarrhea since 1999 today. nn1 Patient reports he cannot walk due to feeling faint and weak. Adult Sepsis Screening: The patient does not have new or worsening altered mentation. Systolic blood pressure is greater than 100. Patient has a qSOFA score of 0- Negative Sepsis Screen. Suicide/Homicide risk assessment- the patient denies having any suicidal and/or homicidal ideations and does not present with any other emotional, behavioral or mental health complaints. Status: Patient is not a special service representative or dependent. Transition of care: patient was not received from another setting of care. 23:21 Acuity: AMINATA Level 3 nn1 23:21 Method Of Arrival: Wheelchair nn1 Triage Assessment: 23:24 General: Appears ill, Behavior is drowsy, Patient slouching over wheelchair in waiting nn1 room, breathing is labored. . General: Patient states he was seen here for kidney stones 2 weeks ago, states stones did not pass. . Pain: Location: right upper quadrant and right lower quadrant Pain currently is 10 out of 10 on a pain scale. HIV screening NA for this visit Offered previously. The patient is triaged at the bedside. See Assessment in Nurses Notes section of ED record. Historical: - Allergies: No known drug Allergies; - Home Meds: 1. none - PMHx: Kidney stones; - PSHx: screws in right wrist; Temporary screws in bilateral legs; - The history from nurses notes was reviewed: and I agree with what is documented. - Social history: Smoking status: Patient states was never smoker of tobacco. No barriers to communication noted, The patient speaks fluent Slovak, Speaks appropriately for age. - : The pt / caregiver states he / she is not on anticoagulants. Home medication list is obtained from family members. - Hospitalizations: : No recent hospitalization is reported. - Exposure Risk Screening:: None identified. - Immunization history:: All immunizations up-to-date. - Family history: Not pertinent. - Social history:: the patient is a non-smoker, the patient drinks alcohol. Screenin/08 01:58 Screening information is obtained from the patient. Fall risk: No risks identified. af2 Assistance ADL's: requires no assistance with activities of daily living. Abuse/DV Screen: The patient / caregiver reports he/she is: not in a situation that causes fear, pain or injury. Nutritional screening: No deficits noted. Advance Directives: Currently, there is no health care proxy. home support is adequate. Assessment: 08/23 23:45 General: Appears in no apparent distress, uncomfortable, Behavior is cooperative. af2 Neurological: Level of Consciousness is awake, alert, obeys commands. Respiratory: Airway is patent Respiratory effort is labored. GI: Abdomen is non- distended Bowel sounds present X 4 quads. Abd is soft and non tender X 4 quads. Reports diarrhea, nausea, vomiting. Derm: Skin is normal. 08/24 00:55 General: Appears in no apparent distress, Behavior is cooperative. Neurological: Level af2 of Consciousness is awake, alert, obeys commands. Respiratory: Airway is patent Respiratory effort is labored. Derm: Skin is normal. 01:56 General: Appears in no apparent distress, Behavior is cooperative, pt vomiting at this af2 time.. Neurological: Level of Consciousness is awake, alert, obeys commands. Respiratory: Airway is patent Respiratory effort is even, unlabored. GI: Reports nausea, vomiting. Derm: Skin is normal. 03:30 General: Appears in no apparent distress, Behavior is cooperative. Neurological: Level af2 of Consciousness is awake, alert, obeys commands. Respiratory: No deficits noted. GI: No deficits noted. Derm: Skin is normal. Vital Signs: 08/23 23:11 BP 149 / 66; Pulse 40; Resp 22 S; Pulse Ox 100% on R/A; Weight 68.04 kg (R); Height 6 gr2 ft. 1 in. (185.42 cm) (R); Pain 6/10; 23:36 BP 148 / 78 (auto/); af2 23:37 Pulse 56 MON; af2 08/24 00:01 Temp 97.1(TE); elida 00:55 BP 122 / 79 Supine; Pulse 62; af2 00:55 BP 167 / 92 Sitting; Pulse 76; af2 00:55 BP 150 / 93 Standing; Pulse 67; af2 01:47 BP 132 / 71; Pulse 86; Resp 18; Temp 98.4(TE); Pulse Ox 99% on R/A; Pain 7/10; elida 03:28 BP 138 / 73; Pulse 62; Resp 20; Temp 96.9(O); Pulse Ox 100% on R/A; Pain 6/10; jmv 08/23 23:11 Body Mass Index 19.79 (68.04 kg, 185.42 cm) gr2 08/23 23:11 TEMP NEEDS TO BE TAKEN gr2 Vitals: 23:11 Log In Time: August 23, 2016 at 23:11. RN notified that patient meets Red Flag gr2 criteria. ED Course: 23:10 Patient visited by Ramakrishna Morse. gr2 23:10 Patient moved to Waiting gr2 23:11 NO PRIMARY PHYSICIAN, . is Private Physician. gr2 23:16 Patient visited by Ramakrishna Morse. gr2 23:20 Yoli Finch RN is Primary Nurse. nn1 23:20 Patient moved to 4 nn1 23:22 Triage Initiated nn1 23:27 Seamus Velarde MD is Attending Physician. pc 23:30 Patient visited by Seamus Velarde MD. pc 08/24 00:01 Patient visited by Irish Horn PCA. elida 00:19 The patient / caregiver is instructed regarding the plan of care and ED course. Patient af2 has correct armband on for positive identification. Placed in gown. 00:19 Inserted saline lock: 18 gauge in right antecubital area and blood collected. The af2 patient tolerated the procedure well. 00:20 Patient visited by Yoli Finch RN. af2 00:54 Patient visited by Yoli Finch RN. af2 00:56 Patient visited by Yoli Finch RN. af2 01:33 Patient visited by Max Osullivan PCA. mdr 01:33 Assisted with urinal. mdr 01:39 Koby Jose DO is Referral Physician. pc 01:48 Patient visited by Irish Horn PCA. elida 01:58 Patient visited by Yoli Finch RN. af2 03:00 Patient visited by Seamus Velarde MD. pc 03:00 Koby Jose DO is Referral Physician. pc 03:28 Patient visited by Dale Ruiz PCA. keith 03:31 Discontinued IV lock intact, bleeding controlled, pressure dressing applied, No af2 redness/swelling at site. No procedures done that require assistance. Administered Medications: 08/23 23:41 Drug: NS 0.9% 1000 ml [sodium chloride 0.9 % intravenous solution] Route: IV; Rate: af2 bolus; Site: right antecubital; 23:42 Drug: Ondansetron 4 mg [ondansetron HCl 2 mg/mL intravenous solution (2 mL)] Route: af2 IVP; Site: right antecubital; 08/24 01:56 Drug: Promethazine 25 mg [promethazine 25 mg/mL injection solution (1 mL)] Route: IVP; af2 Site: right antecubital; 01:56 Drug: NS 0.9% 1000 ml [sodium chloride 0.9 % intravenous solution] Route: IV; Rate: af2 bolus; Site: right antecubital; 03:30 Drug: Ondansetron ODT 4 mg [ondansetron 4 mg disintegrating tablet (1 tabs)] Route: PO; af2 Order Results: There are currently no results for this order. Outcome: 01:39 Discharge ordered by Provider. pc 01:49 Patient left the ED. pc 03:00 Discharge ordered by Provider. pc 03:31 Discharge Assessment: Patient awake, alert and oriented x 3. No cognitive and/or af2 functional deficits noted. Patient verbalized understanding of disposition instructions. patient administered narcotics - no. The following High Risk Discharge criteria are identified: None. Discharged to home ambulatory. Condition: stable. Discharge instructions given to patient, Instructed on discharge instructions, follow up and referral plans. medication usage, Demonstrated understanding of instructions, medications, Pt was receptive of discharge instructions/ teaching. No special radiology studies were completed. Property :Personal belongings accompany Pt. 03:32 Patient left the ED. af2 Signatures: Seamus Velarde MD MD pc Ewald, Destiny, INSTANT POTATO PROCESSOR INSTANT POTATO PROCESSOR eilda Ramakrishna Morse gr2 Yoli FinchRN RN af2 Carlos Alberto Ortiz RN RN nn1 Max Osullivan, INSTANT POTATO PROCESSOR INSTANT POTATO PROCESSOR Dale Stephenson, INSTANT POTATO PROCESSOR INSTANT POTATO PROCESSOR [facility] MTDD
--- NOTE | 2016-08-26 04:33 | EDDOCDS ---
Physician Documentation [facility] Name: Migue Salvador Age: 21 yrs Sex: Male : 1995 Arrival Date: 08/23/2016 Time: 23:10 Bed 4 Private MD: NO PRIMARY PHYSICIAN, . Disposition: 08/24 01:38 Critical Care: Critical care not applicable. pc Disposition: 08/24/16 03:00 Discharged to Home/Self Care. Impression: Other viral enteritis. - Condition is Stable. - Prescriptions for ZOFRAN ODT 4 mg - dissolve 1 tablet by ORAL route 4 times per day As needed do not chew, do not swallow whole; 10 tablet. - Medication Reconciliation, Local Pharmacy Hours form. - Follow up: Koby Jose DO; When: Call to arrange an appointment; Reason: Continuance of care. - Problem is new. - Symptoms have improved. HPI: 08/23 23:48 This 21 yrs old Male presents to ER via Wheelchair with complaints of pc Nausea/Vomiting/Diarrhea. 23:48 The history is obtained from the patient. He started with n/v/d at 7pm tonight. All of pc his close contacts have had similar complaints in the past week. He denies abdominal pain except preceding emesis. At their worst, the symptoms were moderate. In the emergency department, the symptoms are unchanged. The patient has not experienced similar symptoms in the past. The patient has not recently seen a physician. Historical: - Allergies: No known drug Allergies; - Home Meds: 1. none - PMHx: Kidney stones; - PSHx: screws in right wrist; Temporary screws in bilateral legs; - The history from nurses notes was reviewed: and I agree with what is documented. - Social history: Smoking status: Patient states was never smoker of tobacco. No barriers to communication noted, The patient speaks fluent Israeli, Speaks appropriately for age. - : The pt / caregiver states he / she is not on anticoagulants. Home medication list is obtained from family members. - Hospitalizations: : No recent hospitalization is reported. - Exposure Risk Screening:: None identified. - Immunization history:: All immunizations up-to-date. - Family history: Not pertinent. - Social history:: the patient is a non-smoker, the patient drinks alcohol. ROS: 23:48 All systems are negative except as listed. pc Exam: 23:48 General Appearance: alert, the patient is in moderate distress. pc 23:48 EENT: normal eye inspection, ears, nose and throat normal, pharynx normal, mucous membranes moist 23:48 Neck: The exam reveals no acute abnormalities. ROM is normal and painless. No nuchal rigidity is noted.. 23:48 Respiratory: no respiratory distress, normal breath sounds. 23:48 CVS: regular pulse rate, regular rhythm, normal S1 and S2, no murmurs, strong peripheral pulses. 23:48 Abdomen: soft, non-tender, no organomegaly, bowel sounds hyperactive. 23:48 Back: normal inspection. 23:48 Skin: warm, the skin appears pale, diffusely, diaphoretic. 23:48 Extremities: The extremities have a grossly normal appearance. 23:48 Neuro: oriented x 3, cranial nerves normal as tested, no motor deficits, no sensory deficits. 23:48 Psych: normal mood. Vital Signs: 23:11 BP 149 / 66; Pulse 40; Resp 22 S; Pulse Ox 100% on R/A; Weight 68.04 kg / 150 lbs (R); gr2 Height 6 ft. 1 in. (185.42 cm) (R); Pain 6/10; 23:36 BP 148 / 78 (auto/); af2 23:37 Pulse 56 MON; af2 0208 00:01 Temp 97.1(TE); elida 00:55 BP 122 / 79 Supine; Pulse 62; af2 00:55 BP 167 / 92 Sitting; Pulse 76; af2 00:55 BP 150 / 93 Standing; Pulse 67; af2 01:47 BP 132 / 71; Pulse 86; Resp 18; Temp 98.4(TE); Pulse Ox 99% on R/A; Pain 7/10; elida 03:28 BP 138 / 73; Pulse 62; Resp 20; Temp 96.9(O); Pulse Ox 100% on R/A; Pain 6/10; jmv 08/23 23:11 Body Mass Index 19.79 (68.04 kg, 185.42 cm) gr2 08/23 23:11 TEMP NEEDS TO BE TAKEN gr2 MDM: 23:30 IV Saline Lock ordered. pc 23:30 Ondansetron 4 mg IVP once ordered. pc 23:30 NS 0.9% 1000 ml IV at bolus once ordered. pc 23:48 Differential Diagnosis: VGE. Plan: IVF, meds. pc 08/24 00:41 Orthostatic VS ordered. pc 01:37 Financial registration complete. hs2 01:38 Data reviewed: old medical records, vital signs, nurses notes. Test interpretation: pc none. The patient has been re-examined and re-evaluated. The patient's symptoms have markedly improved after treatment. Disposition: The historical points, examination findings, and any diagnostic results supporting the provided diagnosis, were discussed with the patient or legal guardian. The need for outpatient follow up with the provider listed on their discharge instructions was discussed. They were encouraged to return to [facility], or the nearest ED, if symptoms worsen/persist, or for any other questions/concerns. 01:39 Ondansetron ODT Oral Disintegrating Tablet 4 mg PO Per package directions; dispense 2 pc to go: 1 po q4h prn ordered. 01:50 Promethazine 25 mg IVP once; dilute and administer 30-60 minutes ordered. pc 01:50 NS 0.9% 1000 ml IV at bolus once ordered. pc 01:50 ED course: He was discharged and sitting up asking for water when he had sudden emesis pc x 2. He will have more IVF and meds. 03:33 [facility] Payment Agreement was scanned into [employer] and attached to record. hs2 Administered Medications: 08/23 23:41 Drug: NS 0.9% 1000 ml [sodium chloride 0.9 % intravenous solution] Route: IV; Rate: af2 bolus; Site: right antecubital; 23:42 Drug: Ondansetron 4 mg [ondansetron HCl 2 mg/mL intravenous solution (2 mL)] Route: af2 IVP; Site: right antecubital; 08/24 01:56 Drug: Promethazine 25 mg [promethazine 25 mg/mL injection solution (1 mL)] Route: IVP; af2 Site: right antecubital; 01:56 Drug: NS 0.9% 1000 ml [sodium chloride 0.9 % intravenous solution] Route: IV; Rate: af2 bolus; Site: right antecubital; 03:30 Drug: Ondansetron ODT 4 mg [ondansetron 4 mg disintegrating tablet (1 tabs)] Route: PO; af2 Signatures: Seamus Velarde MD MD pc Fulton, AmberRN RN af2 Carlos Alberto OrtizRN RN nn1 Betsy Albright, Reg Reg hs2 The chart was reviewed and I authenticate all verbal orders and agree with the evaluation and treatment provided.Attachments: 03:33 [facility] Payment Agreement hs2 Chart Complete MTDD
--- NOTE | 2016-08-26 04:33 | EDDOCDS ---
Physician Documentation [facility] Name: Migue Salvador Age: 21 yrs Sex: Male : 1995 Arrival Date: 08/23/2016 Time: 23:10 Bed 4 Private MD: NO PRIMARY PHYSICIAN, . Disposition: 08/24 01:38 Critical Care: Critical care not applicable. pc Disposition: 08/24/16 03:00 Discharged to Home/Self Care. Impression: Other viral enteritis. - Condition is Stable. - Prescriptions for ZOFRAN ODT 4 mg - dissolve 1 tablet by ORAL route 4 times per day As needed do not chew, do not swallow whole; 10 tablet. - Medication Reconciliation, Local Pharmacy Hours form. - Follow up: Koby Jose DO; When: Call to arrange an appointment; Reason: Continuance of care. - Problem is new. - Symptoms have improved. HPI: 08/23 23:48 This 21 yrs old Male presents to ER via Wheelchair with complaints of pc Nausea/Vomiting/Diarrhea. 23:48 The history is obtained from the patient. He started with n/v/d at 7pm tonight. All of pc his close contacts have had similar complaints in the past week. He denies abdominal pain except preceding emesis. At their worst, the symptoms were moderate. In the emergency department, the symptoms are unchanged. The patient has not experienced similar symptoms in the past. The patient has not recently seen a physician. Historical: - Allergies: No known drug Allergies; - Home Meds: 1. none - PMHx: Kidney stones; - PSHx: screws in right wrist; Temporary screws in bilateral legs; - The history from nurses notes was reviewed: and I agree with what is documented. - Social history: Smoking status: Patient states was never smoker of tobacco. No barriers to communication noted, The patient speaks fluent Gibraltarian, Speaks appropriately for age. - : The pt / caregiver states he / she is not on anticoagulants. Home medication list is obtained from family members. - Hospitalizations: : No recent hospitalization is reported. - Exposure Risk Screening:: None identified. - Immunization history:: All immunizations up-to-date. - Family history: Not pertinent. - Social history:: the patient is a non-smoker, the patient drinks alcohol. ROS: 23:48 All systems are negative except as listed. pc Exam: 23:48 General Appearance: alert, the patient is in moderate distress. pc 23:48 EENT: normal eye inspection, ears, nose and throat normal, pharynx normal, mucous membranes moist 23:48 Neck: The exam reveals no acute abnormalities. ROM is normal and painless. No nuchal rigidity is noted.. 23:48 Respiratory: no respiratory distress, normal breath sounds. 23:48 CVS: regular pulse rate, regular rhythm, normal S1 and S2, no murmurs, strong peripheral pulses. 23:48 Abdomen: soft, non-tender, no organomegaly, bowel sounds hyperactive. 23:48 Back: normal inspection. 23:48 Skin: warm, the skin appears pale, diffusely, diaphoretic. 23:48 Extremities: The extremities have a grossly normal appearance. 23:48 Neuro: oriented x 3, cranial nerves normal as tested, no motor deficits, no sensory deficits. 23:48 Psych: normal mood. Vital Signs: 23:11 BP 149 / 66; Pulse 40; Resp 22 S; Pulse Ox 100% on R/A; Weight 68.04 kg / 150 lbs (R); gr2 Height 6 ft. 1 in. (185.42 cm) (R); Pain 6/10; 23:36 BP 148 / 78 (auto/); af2 23:37 Pulse 56 MON; af2 0208 00:01 Temp 97.1(TE); elida 00:55 BP 122 / 79 Supine; Pulse 62; af2 00:55 BP 167 / 92 Sitting; Pulse 76; af2 00:55 BP 150 / 93 Standing; Pulse 67; af2 01:47 BP 132 / 71; Pulse 86; Resp 18; Temp 98.4(TE); Pulse Ox 99% on R/A; Pain 7/10; elida 03:28 BP 138 / 73; Pulse 62; Resp 20; Temp 96.9(O); Pulse Ox 100% on R/A; Pain 6/10; jmv 08/23 23:11 Body Mass Index 19.79 (68.04 kg, 185.42 cm) gr2 08/23 23:11 TEMP NEEDS TO BE TAKEN gr2 MDM: 23:30 IV Saline Lock ordered. pc 23:30 Ondansetron 4 mg IVP once ordered. pc 23:30 NS 0.9% 1000 ml IV at bolus once ordered. pc 23:48 Differential Diagnosis: VGE. Plan: IVF, meds. pc 08/24 00:41 Orthostatic VS ordered. pc 01:37 Financial registration complete. hs2 01:38 Data reviewed: old medical records, vital signs, nurses notes. Test interpretation: pc none. The patient has been re-examined and re-evaluated. The patient's symptoms have markedly improved after treatment. Disposition: The historical points, examination findings, and any diagnostic results supporting the provided diagnosis, were discussed with the patient or legal guardian. The need for outpatient follow up with the provider listed on their discharge instructions was discussed. They were encouraged to return to [facility], or the nearest ED, if symptoms worsen/persist, or for any other questions/concerns. 01:39 Ondansetron ODT Oral Disintegrating Tablet 4 mg PO Per package directions; dispense 2 pc to go: 1 po q4h prn ordered. 01:50 Promethazine 25 mg IVP once; dilute and administer 30-60 minutes ordered. pc 01:50 NS 0.9% 1000 ml IV at bolus once ordered. pc 01:50 ED course: He was discharged and sitting up asking for water when he had sudden emesis pc x 2. He will have more IVF and meds. 03:33 [facility] Payment Agreement was scanned into [employer] and attached to record. hs2 Administered Medications: 08/23 23:41 Drug: NS 0.9% 1000 ml [sodium chloride 0.9 % intravenous solution] Route: IV; Rate: af2 bolus; Site: right antecubital; 23:42 Drug: Ondansetron 4 mg [ondansetron HCl 2 mg/mL intravenous solution (2 mL)] Route: af2 IVP; Site: right antecubital; 08/24 01:56 Drug: Promethazine 25 mg [promethazine 25 mg/mL injection solution (1 mL)] Route: IVP; af2 Site: right antecubital; 01:56 Drug: NS 0.9% 1000 ml [sodium chloride 0.9 % intravenous solution] Route: IV; Rate: af2 bolus; Site: right antecubital; 03:30 Drug: Ondansetron ODT 4 mg [ondansetron 4 mg disintegrating tablet (1 tabs)] Route: PO; af2 Signatures: Seamus Velarde MD MD pc Fulton, AmberRN RN af2 Carlos Alberto OrtizRN RN nn1 Betsy Albright, Reg Reg hs2 The chart was reviewed and I authenticate all verbal orders and agree with the evaluation and treatment provided.Attachments: 03:33 [facility] Payment Agreement hs2 Chart Complete MTDD
--- NOTE | 2016-08-26 04:33 | EDDOCDS ---
Nurse's Notes [facility] Name: Migue Salvador Age: 21 yrs Sex: Male : 1995 Arrival Date: 08/23/2016 Time: 23:10 Bed 4 Private MD: NO PRIMARY PHYSICIAN, . Diagnosis: Other viral enteritis Presentation: 08/23 23:21 Presenting complaint: Patient states: nausea/vomiting and diarrhea since 1999 today. nn1 Patient reports he cannot walk due to feeling faint and weak. Adult Sepsis Screening: The patient does not have new or worsening altered mentation. Systolic blood pressure is greater than 100. Patient has a qSOFA score of 0- Negative Sepsis Screen. Suicide/Homicide risk assessment- the patient denies having any suicidal and/or homicidal ideations and does not present with any other emotional, behavioral or mental health complaints. Status: Patient is not a emergency medical service manager or dependent. Transition of care: patient was not received from another setting of care. 23:21 Acuity: AMINATA Level 3 nn1 23:21 Method Of Arrival: Wheelchair nn1 Triage Assessment: 23:24 General: Appears ill, Behavior is drowsy, Patient slouching over wheelchair in waiting nn1 room, breathing is labored. . General: Patient states he was seen here for kidney stones 2 weeks ago, states stones did not pass. . Pain: Location: right upper quadrant and right lower quadrant Pain currently is 10 out of 10 on a pain scale. HIV screening NA for this visit Offered previously. The patient is triaged at the bedside. See Assessment in Nurses Notes section of ED record. Historical: - Allergies: No known drug Allergies; - Home Meds: 1. none - PMHx: Kidney stones; - PSHx: screws in right wrist; Temporary screws in bilateral legs; - The history from nurses notes was reviewed: and I agree with what is documented. - Social history: Smoking status: Patient states was never smoker of tobacco. No barriers to communication noted, The patient speaks fluent Gambian, Speaks appropriately for age. - : The pt / caregiver states he / she is not on anticoagulants. Home medication list is obtained from family members. - Hospitalizations: : No recent hospitalization is reported. - Exposure Risk Screening:: None identified. - Immunization history:: All immunizations up-to-date. - Family history: Not pertinent. - Social history:: the patient is a non-smoker, the patient drinks alcohol. Screenin/08 01:58 Screening information is obtained from the patient. Fall risk: No risks identified. af2 Assistance ADL's: requires no assistance with activities of daily living. Abuse/DV Screen: The patient / caregiver reports he/she is: not in a situation that causes fear, pain or injury. Nutritional screening: No deficits noted. Advance Directives: Currently, there is no health care proxy. home support is adequate. Assessment: 08/23 23:45 General: Appears in no apparent distress, uncomfortable, Behavior is cooperative. af2 Neurological: Level of Consciousness is awake, alert, obeys commands. Respiratory: Airway is patent Respiratory effort is labored. GI: Abdomen is non- distended Bowel sounds present X 4 quads. Abd is soft and non tender X 4 quads. Reports diarrhea, nausea, vomiting. Derm: Skin is normal. 08/24 00:55 General: Appears in no apparent distress, Behavior is cooperative. Neurological: Level af2 of Consciousness is awake, alert, obeys commands. Respiratory: Airway is patent Respiratory effort is labored. Derm: Skin is normal. 01:56 General: Appears in no apparent distress, Behavior is cooperative, pt vomiting at this af2 time.. Neurological: Level of Consciousness is awake, alert, obeys commands. Respiratory: Airway is patent Respiratory effort is even, unlabored. GI: Reports nausea, vomiting. Derm: Skin is normal. 03:30 General: Appears in no apparent distress, Behavior is cooperative. Neurological: Level af2 of Consciousness is awake, alert, obeys commands. Respiratory: No deficits noted. GI: No deficits noted. Derm: Skin is normal. Vital Signs: 08/23 23:11 BP 149 / 66; Pulse 40; Resp 22 S; Pulse Ox 100% on R/A; Weight 68.04 kg (R); Height 6 gr2 ft. 1 in. (185.42 cm) (R); Pain 6/10; 23:36 BP 148 / 78 (auto/); af2 23:37 Pulse 56 MON; af2 08/24 00:01 Temp 97.1(TE); elida 00:55 BP 122 / 79 Supine; Pulse 62; af2 00:55 BP 167 / 92 Sitting; Pulse 76; af2 00:55 BP 150 / 93 Standing; Pulse 67; af2 01:47 BP 132 / 71; Pulse 86; Resp 18; Temp 98.4(TE); Pulse Ox 99% on R/A; Pain 7/10; elida 03:28 BP 138 / 73; Pulse 62; Resp 20; Temp 96.9(O); Pulse Ox 100% on R/A; Pain 6/10; jmv 08/23 23:11 Body Mass Index 19.79 (68.04 kg, 185.42 cm) gr2 08/23 23:11 TEMP NEEDS TO BE TAKEN gr2 Vitals: 23:11 Log In Time: August 23, 2016 at 23:11. RN notified that patient meets Red Flag gr2 criteria. ED Course: 23:10 Patient visited by Ramakrishna Morse. gr2 23:10 Patient moved to Waiting gr2 23:11 NO PRIMARY PHYSICIAN, . is Private Physician. gr2 23:16 Patient visited by Ramakrishna Morse. gr2 23:20 Yoli Finch RN is Primary Nurse. nn1 23:20 Patient moved to 4 nn1 23:22 Triage Initiated nn1 23:27 Seamus Velarde MD is Attending Physician. pc 23:30 Patient visited by Seamus Velarde MD. pc 08/24 00:01 Patient visited by Irish Horn PCA. elida 00:19 The patient / caregiver is instructed regarding the plan of care and ED course. Patient af2 has correct armband on for positive identification. Placed in gown. 00:19 Inserted saline lock: 18 gauge in right antecubital area and blood collected. The af2 patient tolerated the procedure well. 00:20 Patient visited by Yoli Finch RN. af2 00:54 Patient visited by Yoli Finch RN. af2 00:56 Patient visited by Yoli Finch RN. af2 01:33 Patient visited by Max Osulliavn PCA. mdr 01:33 Assisted with urinal. mdr 01:39 Koby Jose DO is Referral Physician. pc 01:48 Patient visited by Irish Horn PCA. elida 01:58 Patient visited by Yoli Finch RN. af2 03:00 Patient visited by Seamus Velarde MD. pc 03:00 Koby Jose DO is Referral Physician. pc 03:28 Patient visited by Dale Ruiz PCA. [facility] 03:31 Discontinued IV lock intact, bleeding controlled, pressure dressing applied, No af2 redness/swelling at site. No procedures done that require assistance. 03:33 [facility] Payment Agreement was scanned into [employer] and attached to record. hs2 Administered Medications: 08/23 23:41 Drug: NS 0.9% 1000 ml [sodium chloride 0.9 % intravenous solution] Route: IV; Rate: af2 bolus; Site: right antecubital; 23:42 Drug: Ondansetron 4 mg [ondansetron HCl 2 mg/mL intravenous solution (2 mL)] Route: af2 IVP; Site: right antecubital; 08/24 01:56 Drug: Promethazine 25 mg [promethazine 25 mg/mL injection solution (1 mL)] Route: IVP; af2 Site: right antecubital; 01:56 Drug: NS 0.9% 1000 ml [sodium chloride 0.9 % intravenous solution] Route: IV; Rate: af2 bolus; Site: right antecubital; 03:30 Drug: Ondansetron ODT 4 mg [ondansetron 4 mg disintegrating tablet (1 tabs)] Route: PO; af2 Order Results: There are currently no results for this order. Outcome: 01:39 Discharge ordered by Provider. pc 01:49 Patient left the ED. pc 03:00 Discharge ordered by Provider. pc 03:31 Discharge Assessment: Patient awake, alert and oriented x 3. No cognitive and/or af2 functional deficits noted. Patient verbalized understanding of disposition instructions. patient administered narcotics - no. The following High Risk Discharge criteria are identified: None. Discharged to home ambulatory. Condition: stable. Discharge instructions given to patient, Instructed on discharge instructions, follow up and referral plans. medication usage, Demonstrated understanding of instructions, medications, Pt was receptive of discharge instructions/ teaching. No special radiology studies were completed. Property :Personal belongings accompany Pt. 03:32 Patient left the ED. af2 Signatures: Seamus Velarde MD MD pc Ewald, Destiny, LABORATORY TECHNICIAN LABORATORY TECHNICIAN elida Ramakrishna Morse gr2 Yoli Finch RN RN af2 Carlos Alberto Ortiz RN RN nn1 Max Osullivan, LABORATORY TECHNICIAN LABORATORY TECHNICIAN mdr Betsy Albright, Reg Reg hs2 Ruiz, Dale, LABORATORY TECHNICIAN LABORATORY TECHNICIAN jmv Chart Complete MTDD
== END 2016-08-24 03:32 | disposition home or self-care (01) ==
LOC: M ED 23:10
DX: A08.4 Viral intestinal infection, unspecified (principal); Z87.442 Personal history of urinary calculi
CPT/HCPCS: 36415; 96374; 96375; 99284; J2405

== ENCOUNTER → 2016-11-23 | Outpatient (REF) | payer OTHER ==
[2016-11-23 19:08] LABS: ALBUMIN 4.3 GM/DL (3.2-5.2); ALBUMIN/GLOBULIN RATIO 1.26 (1.00-1.93); ALKALINE PHOSPHATASE 83 U/L (45-117); ALT/SGPT 31 U/L (12-78); ANION GAP 5 MEQ/L (8-16); AST/SGOT 21 U/L (15-37); BILIRUBIN,TOTAL 0.4 MG/DL (0.2-1.0); BLOOD UREA NITROGEN 13 MG/DL (7-18); CALCIUM LEVEL 9.1 MG/DL (8.5-10.1); CARBON DIOXIDE LEVEL 31 MEQ/L (21-32); CHLORIDE LEVEL 104 MEQ/L (98-107); GLOMERULAR FILTRATION RATE > 60.0 (>60); GLUCOSE, FASTING 84 MG/DL (70-105); POTASSIUM SERUM 4.3 MEQ/L (3.5-5.1); SODIUM LEVEL 140 MEQ/L (136-145); TOTAL PROTEIN 7.7 GM/DL (6.4-8.2)
[2016-11-23 19:43] LABS: BASO % 0.4 % (0.0-1.0); EOS # 0.4 K/mm3 (0.0-0.50); EOS % 9.7 % (0.0-3.0); LARGE UNSTAINED CELL # 0.1 K/mm3 (0.0-0.4); LARGE UNSTAINED CELL % 2.6 % (0.0-4.0); LYMPH # 1.6 K/mm3 (1.5-6.5); LYMPH % 38.8 % (24.0-44.0); MEAN CORPUSCULAR HEMOGLOBIN 31.3 pg (27.0-33.0); MEAN CORPUSCULAR HGB CONC 33.9 g/dl (32.0-36.5); MEAN CORPUSCULAR VOLUME 92.2 fl (80.0-96.0); MONO # 0.3 K/mm3 (0.0-0.8); MONO % 6.1 % (0.0-5.0); NEUTROPHILS # 1.8 K/mm3 (1.8-7.7); NEUTROPHILS % 42.4 % (36.0-66.0); PLATELET COUNT, AUTOMATED 276 k/mm3 (150-450); RED CELL DISTRIBUTION WIDTH 11.9 % (11.5-14.5); WHITE BLOOD COUNT 4.2 K/mm3 (4.0-10.0)
== END ==
LOC: M LAB REF 16:22
PROVIDERS: ATTEND Family Medicine Addiction Medicine
DX: N20.0 Calculus of kidney (principal); R35.0 Frequency of micturition

== ENCOUNTER → 2017-03-29 | Outpatient (REF) | payer OTHER | LOC: M LAB REF 16:00 | PROVIDERS: ATTEND Family Medicine Addiction Medicine | DX: R35.0 Frequency of micturition (principal) ==

== ENCOUNTER → 2017-06-13 | Outpatient (REF) | payer OTHER | LOC: M SMT 16:49 | PROVIDERS: ATTEND Nurse Practitioner Family | DX: R35.0 Frequency of micturition (principal) ==

== ENCOUNTER → 2017-06-22 | Outpatient (CLI) | payer OTHER ==
--- NOTE | 2017-06-23 08:04 | REP ---
NONCONTRAST CT OF THE ABDOMEN AND PELVIS: CLINICAL: Right lower quadrant abdominal pain. COMPARISON: 07/18/2016, 06/01/2016. FINDINGS: The lung bases are well aerated and clear. The visualized heart and pericardium are normal. The liver, spleen, pancreas, gallbladder, bilateral adrenal glands are normal. The kidneys demonstrate mild medullary nephrocalcinosis and a few nonobstructing right intrarenal calculi measuring up to 5 mm. No associated hydronephrosis or perinephric stranding. The enteric system is incompletely evaluated due to lack of intraluminal and intravenous contrast material as well as significant paucity of intraperitoneal fat. The pelvis demonstrates a relatively normal bladder and age appropriate prostate/seminal vesicles. Small amount of pelvic fluid/ascites cannot be excluded. No free air. No obvious adenopathy. Surrounding musculoskeletal structures demonstrate chronic L5 bilateral spondylolysis without spondylolisthesis. IMPRESSION: 1. Limited examination due to lack of contrast enhancement and paucity of intraperitoneal fat. 2. Mild medullary nephrocalcinosis and a few nonobstructing right intrarenal calculi up to 5 mm. 3. Incomplete evaluation of the enteric system and appendix cannot be visualized although no obvious significant inflammatory changes or evidence for obstruction appreciated. 4. Cannot exclude trace free fluid in the pelvis. 5. Chronic L5 spondylolysis without spondylolisthesis. Signed by Yuniel Mathew MD 06/23/2017 08:17 A
== END ==
LOC: M RAD 15:44
PROVIDERS: ATTEND Psychiatry & Neurology Psychiatry
DX: R10.31 Right lower quadrant pain (principal); N20.0 Calculus of kidney

== ENCOUNTER 2017-07-30 14:51 | Emergency (ER) | payer SELFPAY, OTHER ==
[2017-07-30] MEDS: ONDANSETRON 4MG/2ML VIAL (J2405) IV (17:52)
[2017-07-30] MEDS: NS 1,000 ML IV (17:52)
[2017-07-30] MEDS: KETOROLAC 30 MG/ML VIAL (J1885) IV (17:53)
[2017-07-30 17:55] LABS: BASO % 0.2 % (0.0-1.0); EOS % 0.2 % (0.0-3.0); HEMATOCRIT 41.2 % (42.0-52.0); HEMOGLOBIN 14.6 g/dl (14.0-18.0); IMMATURE GRANULOCYTE # 0.1 10^3/uL (0-0); IMMATURE GRANULOCYTE % 0.4 % (0-0); LYMPH # 0.8 10^3/uL (1.5-6.5); LYMPH % 5.8 % (24.0-44.0); MEAN CORPUSCULAR HEMOGLOBIN 30.8 pg (27.0-33.0); MEAN CORPUSCULAR HGB CONC 35.4 g/dl (32.0-36.5); MEAN CORPUSCULAR VOLUME 86.9 fl (80.0-96.0); MONO # 0.4 10^3/uL (0.0-0.8); MONO % 2.8 % (0.0-5.0); NEUTROPHILS % 90.6 % (36.0-66.0); PLATELET COUNT, AUTOMATED 240 10^3/uL (150-450); RED BLOOD COUNT 4.74 10^6/uL (4.30-6.10); RED CELL DISTRIBUTION WIDTH 11.7 % (11.5-14.5); WHITE BLOOD COUNT 14.4 10^3/uL (4.0-10.0)
[2017-07-30 18:26] LABS: ALBUMIN 4.8 GM/DL (3.2-5.2); ALKALINE PHOSPHATASE 92 U/L (45-117); ALT/SGPT 31 U/L (12-78); AMYLASE 65 U/L (25-115); ANION GAP 9 MEQ/L (8-16); AST/SGOT 34 U/L (7-37); BILIRUBIN,DIRECT < 0.1 MG/DL (0.0-0.2); BILIRUBIN,TOTAL 0.5 MG/DL (0.2-1.0); BLOOD UREA NITROGEN 17 MG/DL (7-18); CALCIUM LEVEL 9.1 MG/DL (8.5-10.1); CARBON DIOXIDE LEVEL 25 MEQ/L (21-32); CHLORIDE LEVEL 105 MEQ/L (98-107); CREATININE FOR GFR 0.97 MG/DL (0.70-1.30); GLOMERULAR FILTRATION RATE > 60.0 (>60); GLUCOSE, FASTING 109 MG/DL (70-105); LIPASE 99 U/L (73-393); POTASSIUM SERUM 3.8 MEQ/L (3.5-5.1); SODIUM LEVEL 139 MEQ/L (136-145); TOTAL PROTEIN 8.5 GM/DL (6.4-8.2)
[2017-07-30 19:02] LABS: APPEARANCE, URINE HAZY (CLEAR); BACTERIA, URINE AUTO NEGATIVE (NEGATIVE); BILIRUBIN, URINE AUTO NEGATIVE (NEGATIVE); BLOOD, URINE BLOOD 1+ (NEGATIVE); COLOR, URINE YELLOW (YELLOW); GLUCOSE, URINE (UA) AUTO NEGATIVE (NEGATIVE); KETONE, URINE AUTO 2+ mg/dL (NEGATIVE); LEUKOCYTE ESTERASE, URINE AUTO TRACE (NEGATIVE); MUCUS, URINE SMALL (NEGATIVE); NITRITE, URINE AUTO NEGATIVE (NEGATIVE); PROTEIN, URINE AUTO 1+ mg/dL (NEGATIVE); RBC, URINE AUTO 31 /HPF (0-3); SPECIFIC GRAVITY URINE AUTO 1.026 (1.002-1.035); SQUAMOUS EPITHELIAL CELL UR AU 0 /HPF (0-6); UROBILINOGEN, URINE AUTO 0.2 mg/dL (0.0-2.0); WBC, URINE AUTO 8 /HPF (0-3)
[2017-07-30] MEDS: GASTROGRAFIN SOLUTION 30ML PO (19:27)
[2017-07-30] MEDS: METOCLOPRAMIDE INJ 10MG/2ML VIAL (J2765) IV (19:27)
[2017-07-30] MEDS: GASTROGRAFIN SOLUTION 30ML (Q9963) PO (19:40)
[2017-07-30] MEDS ORDERED: ISOVUE-370 76% 100ML VIAL (Q9967) As Ordered (20:30)
== END 2017-07-30 22:18 | disposition home or self-care (01) ==
LOC: M ED 14:51
DX: R10.9 Unspecified abdominal pain (principal); G89.29 Other chronic pain; J45.909 Unspecified asthma, uncomplicated; Z88.2 Allergy status to sulfonamides; Z87.09 Personal history of other diseases of the respiratory system
CPT/HCPCS: Q9963

== ENCOUNTER 2018-01-25 12:05 | Emergency (ER) | payer OTHER, MEDICAID ==
[2018-01-25] MEDS: KETOROLAC 30 MG/ML VIAL (J1885) IV (12:41)
[2018-01-25] MEDS: ONDANSETRON 4MG/2ML VIAL (J2405) IV (12:41)
[2018-01-25] MEDS: NS 1,000 ML IV (12:41)
[2018-01-25 12:56] LABS: BASO # 0.1 10^3/uL (0.0-0.2); BASO % 0.7 % (0.0-1.0); EOS # 0.4 10^3/uL (0.0-0.50); EOS % 5.8 % (0.0-3.0); HEMATOCRIT 45.8 % (42.0-52.0); HEMOGLOBIN 16.3 g/dl (13.5-17.5); IMMATURE GRANULOCYTE % 0.4 % (0-3.0); LYMPH # 2.4 10^3/uL (1.5-6.5); LYMPH % 34.5 % (24.0-44.0); MEAN CORPUSCULAR HEMOGLOBIN 30.6 pg (27.0-33.0); MEAN CORPUSCULAR HGB CONC 35.6 g/dl (32.0-36.5); MEAN CORPUSCULAR VOLUME 86.1 fl (80.0-96.0); MONO # 0.6 10^3/uL (0.0-0.8); NEUTROPHILS # 3.4 10^3/uL (1.8-7.7); NEUTROPHILS % 49.6 % (36.0-66.0); PLATELET COUNT, AUTOMATED 247 10^3/uL (150-450); RED BLOOD COUNT 5.32 10^6/uL (4.30-6.10); RED CELL DISTRIBUTION WIDTH 11.8 % (11.5-14.5); WHITE BLOOD COUNT 6.9 10^3/uL (4.0-10.0)
[2018-01-25] MEDS: METOCLOPRAMIDE INJ 10MG/2ML VIAL (J2765) IV (13:45)
[2018-01-25 13:55] LABS: KETONE, URINE AUTO RFX 1+ mg/dL (NEGATIVE); LEUKOCYTE ESTERASE UR AUTO RFX NEGATIVE (NEGATIVE); MUCUS, URINE RFX SMALL (NEGATIVE); NITRITE, URINE AUTO RFX NEGATIVE (NEGATIVE); RBC, URINE AUTO RFX 9 /HPF (0-3); SPECIFIC GRAVITY UR AUTO RFX 1.021 (1.002-1.035); SQUAM EPITHELIAL CELL UR AURFX 0 /HPF (0-6); WBC, URINE AUTO RFX 2 /HPF (0-3)
[2018-01-25 14:02] LABS: ALBUMIN 4.2 GM/DL (3.2-5.2); ALKALINE PHOSPHATASE 70 U/L (45-117); ALT/SGPT 27 U/L (12-78); AMYLASE 59 U/L (25-115); ANION GAP 8 MEQ/L (8-16); AST/SGOT 21 U/L (7-37); BILIRUBIN,DIRECT < 0.1 MG/DL (0.0-0.2); BILIRUBIN,TOTAL 0.5 MG/DL (0.2-1.0); BLOOD UREA NITROGEN 15 MG/DL (7-18); CALCIUM LEVEL 9.2 MG/DL (8.5-10.1); CARBON DIOXIDE LEVEL 26 MEQ/L (21-32); CHLORIDE LEVEL 106 MEQ/L (98-107); CREATININE FOR GFR 1.08 MG/DL (0.70-1.30); GLOMERULAR FILTRATION RATE > 60.0 (>60); GLUCOSE, FASTING 95 MG/DL (70-100); LIPASE 125 U/L (73-393); POTASSIUM SERUM 3.9 MEQ/L (3.5-5.1); SODIUM LEVEL 140 MEQ/L (136-145); TOTAL PROTEIN 7.7 GM/DL (6.4-8.2)
[2018-01-25] MEDS: GI COCKTAIL 50ML BTL(HYOSCYAMINE/MAALOX/LIDOCAINE VISCOUS)(1:3:1) PO (14:39)
[2018-01-25] MEDS ORDERED: ONDANSETRON 4 MG ORAL DISINTEGRATING TAB (Q0162 PER 1MG) As Ordered (14:45)
[2018-01-25] MEDS: ONDANSETRON 4 MG ORAL DISINTEGRATING TAB (Q0162 PER 1MG) PO (14:46)
== END 2018-01-25 14:56 | disposition home or self-care (01) ==
LOC: M ED 12:05
DX: R10.11 Right upper quadrant pain (principal); R11.2 Nausea with vomiting, unspecified; J45.909 Unspecified asthma, uncomplicated; Z79.899 Other long term (current) drug therapy
CPT/HCPCS: J2405

== ENCOUNTER → 2018-03-07 | Outpatient (CLI) | payer OTHER ==
[~2018-03-07] MED LIST: GLUCAGON FOR INJ 1 MG VIAL (J1610) As Ordered; ISOVUE-370 76% 100ML VIAL (Q9967) As Ordered; VoLumen 0.1% SUSPENSION 450ML BOTTLE As Ordered
== END ==
LOC: M RAD 13:07
DX: N20.0 Calculus of kidney (principal); R10.31 Right lower quadrant pain; R63.4 Abnormal weight loss
CPT/HCPCS: Q9967

== ENCOUNTER 2018-04-03 12:05 | Day surgery (SDC) | payer OTHER ==
[~2018-04-03 12:05] MED LIST changes: -GLUCAGON FOR INJ 1 MG VIAL (J1610) As Ordered; -ISOVUE-370 76% 100ML VIAL (Q9967) As Ordered; +LIDOCAINE 2% INJ 100 MG/5 ML SDV (FOR ANES.) As Ordered; +PROPOFOL 200 MG/20 ML VIAL As Ordered; -VoLumen 0.1% SUSPENSION 450ML BOTTLE As Ordered; +fentaNYL 100 MCG/2 ML INJECTION (J3010) As Ordered
[2018-04-03] MEDS: NS 1,000 ML IV (12:30)
== END 2018-04-03 15:35 | disposition home or self-care (01) ==
LOC: M OPP 12:05
DX: R10.31 Right lower quadrant pain (principal); R11.0 Nausea; K64.8 Other hemorrhoids; J45.909 Unspecified asthma, uncomplicated; F12.10 Cannabis abuse, uncomplicated; Z79.899 Other long term (current) drug therapy
CPT/HCPCS: 45378

== ENCOUNTER → 2019-02-03 | Outpatient (REF) | payer OTHER ==
[~2019-02-03] MED LIST changes: -LIDOCAINE 2% INJ 100 MG/5 ML SDV (FOR ANES.) As Ordered; +OMEP20CA4 PO; -PROPOFOL 200 MG/20 ML VIAL As Ordered; +PROT1TAB2 PO; +REGL10TA6 PO; +ZOFR4TAB14 PO; -fentaNYL 100 MCG/2 ML INJECTION (J3010) As Ordered
[2019-02-03 22:27] LABS: APPEARANCE, URINE CLEAR (CLEAR); BACTERIA, URINE AUTO NEGATIVE (NEGATIVE); BILIRUBIN, URINE AUTO NEGATIVE (NEGATIVE); BLOOD, URINE BLOOD 1+ (NEGATIVE); COLOR, URINE YELLOW (YELLOW); GLUCOSE, URINE (UA) AUTO NEGATIVE (NEGATIVE); KETONE, URINE AUTO NEGATIVE (NEGATIVE); LEUKOCYTE ESTERASE, URINE AUTO NEGATIVE (NEGATIVE); MUCUS, URINE SMALL (NEGATIVE); NITRITE, URINE AUTO NEGATIVE (NEGATIVE); PROTEIN, URINE AUTO NEGATIVE (NEGATIVE); RBC, URINE AUTO 44 /HPF (0-3); SQUAMOUS EPITHELIAL CELL UR AU 0 /HPF (0-6); UROBILINOGEN, URINE AUTO 0.2 mg/dL (0.0-2.0); WBC, URINE AUTO 2 /HPF (0-3)
[2019-02-03 23:45] LABS: CHLAMYDIA DNA AMPLIFICATION NEGATIVE (NEGATIVE); GC DNA AMPLIFICATION NEGATIVE (NEGATIVE)
== END ==
LOC: M LAB REF 09:49
PROVIDERS: ATTEND Physician Assistant Medical
DX: N39.0 Urinary tract infection, site not specified (principal)

== ENCOUNTER → 2019-07-29 | Outpatient (REF) | payer OTHER ==
[~2019-07-29] MED LIST changes: +OMEP1CAP73 PO; -OMEP20CA4 PO
[2019-07-29 19:25] LABS: APPEARANCE, URINE CLEAR (CLEAR); BACTERIA, URINE AUTO NEGATIVE (NEGATIVE); BILIRUBIN, URINE AUTO NEGATIVE (NEGATIVE); BLOOD, URINE BLOOD NEGATIVE (NEGATIVE); COLOR, URINE YELLOW (YELLOW); GLUCOSE, URINE (UA) AUTO NEGATIVE (NEGATIVE); KETONE, URINE AUTO NEGATIVE (NEGATIVE); LEUKOCYTE ESTERASE, URINE AUTO 1+ (NEGATIVE); MUCUS, URINE SMALL (NEGATIVE); NITRITE, URINE AUTO NEGATIVE (NEGATIVE); PROTEIN, URINE AUTO NEGATIVE (NEGATIVE); RBC, URINE AUTO 2 /HPF (0-3); SPECIFIC GRAVITY URINE AUTO 1.025 (1.002-1.035); SQUAMOUS EPITHELIAL CELL UR AU 1 /HPF (0-6); UROBILINOGEN, URINE AUTO 0.2 mg/dL (0.0-2.0); WBC, URINE AUTO 25 /HPF (0-3)
== END ==
LOC: M LAB REF 18:22
PROVIDERS: ATTEND Physician Assistant Medical
DX: N39.0 Urinary tract infection, site not specified (principal)

== ENCOUNTER 2019-08-14 07:24 | Emergency (ER) | payer OTHER ==
[~2019-08-14] VITALS: Ht 182.9 cm; Wt 67.1 kg
[2019-08-14] MEDS ORDERED: OSEL75CA2 (07:39)
[2019-08-14] MEDS ORDERED: ACETAMINOPHEN 500 MG TAB PO ONE (08:00)
[2019-08-14] MEDS ORDERED: IBUPROFEN 800 MG TAB PO ONE (08:00)
[2019-08-14] MEDS ORDERED: ONDANSETRON 4 MG ORAL DISINTEGRATING TAB (Q0162 PER 1MG) PO ONE (08:00)
[2019-08-14 09:18] LABS: BASO % 0.6 % (0.0-1.0); EOS % 1.1 % (0.0-3.0); HEMATOCRIT 46.6 % (42.0-52.0); HEMOGLOBIN 15.6 g/dl (13.5-17.5); LYMPH # 1.5 10^3/uL (1.5-5.0); LYMPH % 41.1 % (24.0-44.0); MEAN CORPUSCULAR HEMOGLOBIN 29.9 pg (27.0-33.0); MEAN CORPUSCULAR HGB CONC 33.5 g/dl (32.0-36.5); MEAN CORPUSCULAR VOLUME 89.4 fl (80.0-96.0); MONO # 0.7 10^3/uL (0.0-0.8); MONO % 18.2 % (0.0-5.0); NEUTROPHILS # 1.4 10^3/uL (1.5-8.5); NEUTROPHILS % 38.7 % (36.0-66.0); PLATELET COUNT, AUTOMATED 176 10^3/uL (150-450); RED BLOOD COUNT 5.21 10^6/uL (4.30-6.10); WHITE BLOOD COUNT 3.6 10^3/uL (4.0-10.0)
[2019-08-14 09:46] LABS: ALBUMIN 4.3 GM/DL (3.2-5.2); ALT/SGPT 25 U/L (12-78); BILIRUBIN,DIRECT < 0.1 MG/DL (0.0-0.2); BILIRUBIN,TOTAL 0.3 MG/DL (0.2-1.0); BLOOD UREA NITROGEN 10 MG/DL (7-18); CARBON DIOXIDE LEVEL 27 MEQ/L (21-32); CHLORIDE LEVEL 105 MEQ/L (98-107); CPK CREATINE PHOSPHOKINASE 211 U/L (39-308); CREATININE FOR GFR 1.01 MG/DL (0.70-1.30); GLOMERULAR FILTRATION RATE > 60.0 (>60); GLUCOSE, FASTING 118 MG/DL (70-100); LIPASE 132 U/L (73-393); POTASSIUM SERUM 4.3 MEQ/L (3.5-5.1); SODIUM LEVEL 138 MEQ/L (136-145)
[2019-08-14 10:15] VITALS: BP 100/58
[2019-08-15] MEDS ORDERED: CIPR-249 PO (17:39)
== END 2019-08-14 10:16 | disposition home or self-care (01) ==
LOC: M ED 07:24
DX: R11.2 Nausea with vomiting, unspecified (principal); R19.7 Diarrhea, unspecified; R52 Pain, unspecified
CPT/HCPCS: 36415; 80048; 80076; 81001; 82550; 83690; 85025; 99283; Q0162

== ENCOUNTER 2019-08-15 09:05 | Emergency (ER) | payer OTHER ==
[~2019-08-15] VITALS: Ht 182.9 cm; Wt 68.2 kg
[~2019-08-15 09:05] MED LIST changes: +OSEL75CA2
[2019-08-15] MEDS ORDERED: NS 1,000 ML IV ONE ×2 (09:45→15:30)
--- NOTE | 2019-08-15 09:56 | REP ---
PA and lateral chest: There are no comparisons. The lung ponce are clear. The cardiac size is normal. The isha, mediastinum, and skeletal structures are unremarkable. Impression: Negative PA and lateral chest. Electronically Signed by Oscar Palencia MD 08/15/2019 09:48 A
[2019-08-15 10:07] LABS: BASO % 0.4 % (0.0-1.0); EOS # 0.1 10^3/uL (0.0-0.5); EOS % 1.2 % (0.0-3.0); HEMATOCRIT 47.9 % (42.0-52.0); HEMOGLOBIN 15.8 g/dl (13.5-17.5); LYMPH # 1.5 10^3/uL (1.5-5.0); LYMPH % 26.5 % (24.0-44.0); MEAN CORPUSCULAR HEMOGLOBIN 29.9 pg (27.0-33.0); MEAN CORPUSCULAR VOLUME 90.7 fl (80.0-96.0); MONO # 0.6 10^3/uL (0.0-0.8); MONO % 10.7 % (0.0-5.0); NEUTROPHILS # 3.5 10^3/uL (1.5-8.5); PLATELET COUNT, AUTOMATED 191 10^3/uL (150-450); RED BLOOD COUNT 5.28 10^6/uL (4.30-6.10); WHITE BLOOD COUNT 5.7 10^3/uL (4.0-10.0)
[2019-08-15 10:31] LABS: INFLUENZA A AMPLIFICATION NEGATIVE (NEGATIVE); INFLUENZA B AMPLIFICATION NEGATIVE (NEGATIVE)
[2019-08-15 10:40] LABS: BLOOD UREA NITROGEN 18 MG/DL (7-18); CALCIUM LEVEL 9.6 MG/DL (8.5-10.1); CARBON DIOXIDE LEVEL 29 MEQ/L (21-32); CHLORIDE LEVEL 102 MEQ/L (98-107); CREATININE FOR GFR 1.12 MG/DL (0.70-1.30); GLOMERULAR FILTRATION RATE > 60.0 (>60); GLUCOSE, FASTING 97 MG/DL (70-100); POTASSIUM SERUM 4.2 MEQ/L (3.5-5.1); SODIUM LEVEL 139 MEQ/L (136-145)
[2019-08-15] MEDS ORDERED: KETOROLAC 30 MG/ML VIAL (J1885) IV ONE (10:45)
[2019-08-15] MEDS ORDERED: ACETAMINOPHEN 325 MG TAB PO ONE (10:45)
[2019-08-15 10:47] LABS: MONO SCRN NEGATIVE (NEGATIVE)
--- NOTE | 2019-08-15 12:10 | REP ---
RIGHT KNEE, TWO VIEWS: There is no evidence of an acute fracture, dislocation or intrinsic bone disease. IMPRESSION: No fracture or dislocation. Electronically Signed by Oscar Rios MD 08/16/2019 12:29 P
[2019-08-15 15:28] LABS: APPEARANCE, URINE HAZY (CLEAR); BACTERIA, URINE AUTO 2+ (NEGATIVE); BILIRUBIN, URINE AUTO NEGATIVE (NEGATIVE); BLOOD, URINE BLOOD 3+ (NEGATIVE); COLOR, URINE AMBER (YELLOW); GLUCOSE, URINE (UA) AUTO NEGATIVE (NEGATIVE); KETONE, URINE AUTO 1+ mg/dL (NEGATIVE); LEUKOCYTE ESTERASE, URINE AUTO NEGATIVE (NEGATIVE); MUCUS, URINE SMALL (NEGATIVE); NITRITE, URINE AUTO NEGATIVE (NEGATIVE); PROTEIN, URINE AUTO 3+ mg/dL (NEGATIVE); RBC, URINE AUTO TNTC /HPF (0-3); SPECIFIC GRAVITY URINE AUTO 1.039 (1.002-1.035); SQUAMOUS EPITHELIAL CELL UR AU 0 /HPF (0-6); UROBILINOGEN, URINE AUTO 0.2 mg/dL (0.0-2.0); WBC, URINE AUTO 10 /HPF (0-3)
[2019-08-15 15:50] LABS: C REACTIVE PROTEIN QUANTITATIV < 0.30 MG/DL (0.00-0.30)
[2019-08-15 16:23] LABS: ERYTHROCYTE SEDIMENTATION RATE 5 mm/hr (0-15)
[2019-08-15] MEDS ORDERED: CIPR-249 PO (17:39)
[2019-08-15] MEDS ORDERED: CIPROFLOXACIN 500 MG TAB PO ONE (17:45)
[2019-08-15 18:23] VITALS: BP 148/68
[2019-08-16] MEDS ORDERED: IBUP-1720 PO (02:52)
[2019-08-16] MEDS ORDERED: CIPR500T3 PO (02:52)
== END 2019-08-15 18:43 | disposition home or self-care (01) ==
LOC: M ED 09:05
DX: N39.0 Urinary tract infection, site not specified (principal); B34.9 Viral infection, unspecified; Z79.899 Other long term (current) drug therapy
CPT/HCPCS: 71046; 72110; 73560; 80048; 81001; 85025; 85652; 86140; 86308; 87502; 87798; 96361; 96374; 99284; J1885

== ENCOUNTER 2019-08-15 22:49 | Inpatient (IN) | payer OTHER ==
[~2019-08-15] VITALS: Ht 182.9 cm; Wt 70.4 kg
[~2019-08-15 22:49] MED LIST changes: +CIPR-249 PO
[2019-08-16] VITALS (17 sets, daily range): BP systolic 113–136; BP diastolic 57–74; O2SAT 97–99
[2019-08-16] MEDS ORDERED: LIDOCAINE 2% 5ML JELLY UROJET TOP ONE
[2019-08-16 00:11] LABS: BASO % 0.2 % (0.0-1.0); EOS % 0.4 % (0.0-3.0); HEMATOCRIT 42.5 % (42.0-52.0); HEMOGLOBIN 14.1 g/dl (13.5-17.5); LYMPH # 1.6 10^3/uL (1.5-5.0); LYMPH % 33.8 % (24.0-44.0); MEAN CORPUSCULAR HEMOGLOBIN 30.1 pg (27.0-33.0); MEAN CORPUSCULAR HGB CONC 33.2 g/dl (32.0-36.5); MEAN CORPUSCULAR VOLUME 90.6 fl (80.0-96.0); MONO # 0.5 10^3/uL (0.0-0.8); MONO % 10.4 % (0.0-5.0); NEUTROPHILS # 2.6 10^3/uL (1.5-8.5); NEUTROPHILS % 54.6 % (36.0-66.0); PLATELET COUNT, AUTOMATED 176 10^3/uL (150-450); RED BLOOD COUNT 4.69 10^6/uL (4.30-6.10); WHITE BLOOD COUNT 4.7 10^3/uL (4.0-10.0)
[2019-08-16 00:20] LABS: BLOOD UREA NITROGEN 16 MG/DL (7-18); C REACTIVE PROTEIN QUANTITATIV < 0.30 MG/DL (0.00-0.30); CALCIUM LEVEL 8.6 MG/DL (8.5-10.1); CARBON DIOXIDE LEVEL 28 MEQ/L (21-32); CHLORIDE LEVEL 106 MEQ/L (98-107); CREATININE FOR GFR 0.88 MG/DL (0.70-1.30); GLOMERULAR FILTRATION RATE > 60.0 (>60); GLUCOSE, FASTING 85 MG/DL (70-100); SODIUM LEVEL 139 MEQ/L (136-145)
[2019-08-16 00:35] LABS: ERYTHROCYTE SEDIMENTATION RATE 5 mm/hr (0-15)
[2019-08-16] MEDS ORDERED: PROHANCE 279.3MG/ML 5ML VIAL (A9576) As Ordered ONE (01:18)
--- NOTE | 2019-08-16 02:19 | REPVR ---
PROCEDURE INFORMATION: Exam: MR Lumbar Spine Without and With Contrast. Exam date and time: 08/16/2019 11:53 PM Age: 24 years old Clinical indication: Weakness; Additional info: Lower leg paralysis with acute urinary retention: Ariel v gbs TECHNIQUE: Imaging protocol: Multiplanar magnetic resonance images of the lumbar spine without and with intravenous contrast. Contrast material: PROHANCE; Contrast volume: 13 ml; Contrast route: IV; COMPARISON: CR Spine. Lumbosacral, complete 08/15/2019 11:37 AM FINDINGS: Vertebrae: No fracture or malalignment. Mild epidural lipomatosis in the lower lumbar spine. Spinal cord: Nerve roots and cauda equina appear mildly thickened. Subtle enhancement in the cauda equina on the sagittal post contrast T1 series, but this is less prominent on the axial series. No intradural mass or other abnormal enhancement. L1-L2: No significant disc disease. No significant spinal canal stenosis. No neural foraminal stenosis. L2-L3: No significant disc disease. No significant spinal canal stenosis. No neural foraminal stenosis. L3-L4: No significant disc disease. No significant spinal canal stenosis. No neural foraminal stenosis. L4-L5: No significant disc disease. No significant spinal canal stenosis. No neural foraminal stenosis. L5-S1: Disc degeneration with loss of disc height and broad-based posterior disc protrusion. No central spinal canal stenosis or foraminal stenosis. Soft tissues: Unremarkable. IMPRESSION: 1. 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 2. Disc degeneration at L5-S1 without spinal stenosis as above. 3. Mild epidural lipomatosis at L5-S1. Electronically signed by: Johnson Hoffmann On 08/16/2019 02:19:21 AM
[2019-08-16] MEDS ORDERED: IMMUNE GLOBULIN IV SCH ×2 (02:45→03:45)
[2019-08-16] MEDS ORDERED: IBUP-1720 PO (02:52)
[2019-08-16] MEDS ORDERED: CIPR500T3 PO (02:52)
[2019-08-16] MEDS ORDERED: MAALOX 30 ML SUSP *UDC PO PRN (03:00)
[2019-08-16] MEDS ORDERED: IMMUNE GLOBULIN 10% 20 GM in IV 1 EA IV ONE (05:00)
[2019-08-16] MEDS ORDERED: IMMUNE GLOBULIN 10% 10 GM in IV 1 EA IV ONE (05:00)
[2019-08-16] MEDS ORDERED: IMMUNE GLOBULIN 10% 40 GM in IV 1 EA IV ONE (05:00)
[2019-08-16] MEDS ORDERED: IMMUNE GLOBULIN IV ONE ×2 (05:00)
[2019-08-16] MEDS: NS 1,000 ML IV SCH ×2 (05:10→21:09)
--- NOTE | 2019-08-16 05:59 | HPEPDOC ---
[facility] Medical History & Physical Date of Admission Aug 16, 2019 Date of Service: Aug 16, 2019 Attending Physician: MERLE DELGADILLO MD History and Physical TIME OF SERVICE: 3:05 AM / CC 30 min CHIEF COMPLAINT: Lower extremity weakness HISTORY OF PRESENT ILLNESS: This is a 24 old male has been expressing lower extremity weakness since July 31. He was diagnosed with URI and started on doxycycline but didn't improve. On Monday presented to urgent care with complaints of leg and back pain, nausea and chills, was diagnosed with a URI and discharge home with Tamiflu. Yesterday he presented to the hospital with complaints of weakness, back pain and reported that he let his legs gave out. Shortly thereafter, he was discharged, but he returned he returned because his legs and abdomen felt numb and asleep, and he was unable to walk. Currently, he denies having difficulty swallowing or breathing, but is unable to move his legs and feels like his abdomen and chest are progressively becoming more numb. Per discussion with Dr. 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 REVIEW OF SYSTEMS: 12 point review of systems negative except as listed in HPI PAST MEDICAL/ SURGICAL HISTORY: He has had some hand surgery's SOCIAL HISTORY: THC use FAMILY HISTORY: Coronary artery disease ALLERGIES: Please see below. HOME MEDICATIONS: Please see below. PHYSICAL EXAMINATION: VITAL SIGNS: Please see below. GEN: well-nourished / well developed/ anxious INTEGUMENT: not flushed / has multiple tattoos HEENT: NCAT / lips acyanotic /mucus membranes moist and pink CVS: RRR/NMRG LUNGS: lungs are clear to auscultation bilaterally on room air ABDOMEN: Contour (flat) / soft & not tender with palpation MSK/EXTREMITIES: He is able to move his arms but not his legs NEURO: CN 2-12 are grossly intact / speech is not dysarthric PSYCH: alert and oriented to person place and time/ able to understand and follow all commands LABORATORY DATA: See below. IMAGING: MRI of the lumbar spine " IMPRESSION: 1. 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 2. Disc degeneration at L5-S1 without spinal stenosis as above. 3. Mild epidural lipomatosis at L5-S1. " ASSESSMENT: Mr. 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6, Monocytes # (Auto) 0.5, Eosinophils # (Auto) 0.0, Basophils # (Auto) 0.0, Nucleated Red Blood Cells % (auto) 0.0, Erythrocyte Sedimentation Rate 5, Anion Gap 5L, Glomerular Filtration Rate > 60.0, Calcium Level 8.6, C-Reactive Protein, Quantitative < 0.30 CBC/BMP Laboratory Tests 08/15/19 23:04 Home Medications Scheduled Ciprofloxacin HCl (Ciprofloxacin HCl) 500 Mg Tablet, 500 MG PO BID HAS NOT PICKED UP SCRIPT YET Scheduled PRN Ibuprofen (Ibuprofen) 200 Mg Tablet, 600 MG PO Q6H PRN for PAIN Allergies Coded Allergies: No Known Allergies (Unverified , 03/20/18) A-FIB/CHADSVASC A-FIB History Current/History of A-Fib/PAF?: No Current PO Anticoag Therapy: MERLE eDlatorre MD Aug 16, 2019 05:59
[2019-08-16] MEDS: HEPARIN SOD (PORCINE) 5000 UNITS/ML VIAL (J1644 PER 1000UNITS) SC SCH ×2 (09:51→21:09)
[2019-08-16] MEDS: DOCUSATE SODIUM 100 MG CAP PO SCH ×2 (09:51→21:08)
[2019-08-16 10:20] LABS: BLOOD UREA NITROGEN 14 MG/DL (7-18); CALCIUM LEVEL 8.1 MG/DL (8.5-10.1); CARBON DIOXIDE LEVEL 19 MEQ/L (21-32); CHLORIDE LEVEL 110 MEQ/L (98-107); CREATININE FOR GFR 0.91 MG/DL (0.70-1.30); GLOMERULAR FILTRATION RATE > 60.0 (>60); GLUCOSE, FASTING 94 MG/DL (70-100); POTASSIUM SERUM 4.3 MEQ/L (3.5-5.1); SODIUM LEVEL 137 MEQ/L (136-145)
[2019-08-16 10:20] LABS: HEMATOCRIT 41.1 % (42.0-52.0); MEAN CORPUSCULAR HGB CONC 34.1 g/dl (32.0-36.5); MEAN CORPUSCULAR VOLUME 91.1 fl (80.0-96.0); PLATELET COUNT, AUTOMATED 168 10^3/uL (150-450); RED BLOOD COUNT 4.51 10^6/uL (4.30-6.10); WHITE BLOOD COUNT 3.9 10^3/uL (4.0-10.0)
[2019-08-16] MEDS ORDERED: MIDAZOLAM INJ 2 MG/2 ML VIAL (J2250) IV ONE ×2 (11:15→11:27)
[2019-08-16] MEDS ORDERED: LIDOCAINE 1% MDV 20ML VIAL As Ordered ONE (11:26)
[2019-08-16] MEDS ORDERED: PROHANCE 279.3MG/ML 15ML VIAL (A9576) As Ordered ONE (20:10)
[2019-08-16] MEDS: ACETAMINOPHEN TAB 650MG DOSE (2X325MG) PO PRN (21:10)
--- NOTE | 2019-08-16 21:14 | REPVR ---
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 Contrast material: PROHANCE; Contrast volume: 13 ml; Contrast route: 20G ANGIO; COMPARISON: No relevant prior studies available. FINDINGS: Vertebrae: No fracture or malalignment. No spinal stenosis. Spinal cord: There is diffusely abnormal T2 hyperintense signal throughout the thoracic spinal cord extending in the conus medullaris, primarily involving the central spinal cord. Spinal cord is mildly expanded. No discrete mass is identified. No syrinx is identified. No significant contrast enhancement. Visualized nerve roots of the cauda equina appear thickened. No cord compression. T1-T2: No significant disc disease. No significant spinal canal stenosis. T2-T3: No significant disc disease. No significant spinal canal stenosis. T3-T4: No significant disc disease. No significant spinal canal stenosis. T4-T5: No significant disc disease. No significant spinal canal stenosis. T5-T6: No significant disc disease. No significant spinal canal stenosis. T6-T7: No significant disc disease. No significant spinal canal stenosis. T7-T8: No significant disc disease. No significant spinal canal stenosis. T8-T9: No significant disc disease. No significant spinal canal stenosis. T9-T10: No significant disc disease. No significant spinal canal stenosis. T10-T11: No significant disc disease. No significant spinal canal stenosis. T11-T12: No significant disc disease. No significant spinal canal stenosis. Soft tissues: Unremarkable. IMPRESSION: Diffusely abnormal T2 hyperintense signal throughout the spinal cord with mild enlargement of the cord typical of transverse myelitis. No mass or cord compression. Electronically signed by: Johnson Hoffmann On 08/16/2019 21:15:16 PM
--- NOTE | 2019-08-16 21:17 | REPVR ---
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 Contrast material: PROHANCE; Contrast volume: 13 ml; Contrast route: 20G ANGIO; COMPARISON: No relevant prior studies available. FINDINGS: Vertebrae: Unremarkable. No fracture or malalignment. No spinal stenosis. Spinal cord: There is diffusely abnormal T2 hyperintense signal in the spinal cord, primarily involving the central cord, extending from C3 inferiorly into the thoracic spinal cord. There is also similar milder abnormal signal in the cervical medullary junction and central spinal cord extending to the C2-3 level. No syrinx or mass is identified. No abnormal contrast enhancement or cord compression.. C2-C3: No significant disc disease. No significant spinal stenosis. C3-C4: No significant disc disease. No significant spinal stenosis. C4-C5: No significant disc disease. No significant spinal stenosis. C5-C6: No significant disc disease. No significant spinal stenosis. C6-C7: No significant disc disease. No significant spinal stenosis. C7-T1: No significant disc disease. No significant spinal stenosis. Vertebral arteries: Expected flow voids in the vertebral arteries. Soft tissues: Unremarkable. IMPRESSION: Abnormal signal throughout the spinal cord with enlargement of the cord typical of transverse myelitis. No mass or cord compression. Electronically signed by: Johnson Hoffmann On 08/16/2019 21:19:15 PM
[2019-08-16] MEDS: methylPREDNISolone 1,000 MG, VIAL MATE ADAPTER 1 EACH in D5W 250 ML IV SCH (22:31)
--- NOTE | 2019-08-16 23:53 | CR ---
DATE OF CONSULTATION: 08/16/2019 REFERRING PHYSICIAN: Dr. Dana Hfofman REASON FOR CONSULTATION: Bilateral leg weakness. HISTORY OF PRESENT ILLNESS: Migue Salvador is a 24-year-old man who was diagnosed with upper respiratory tract infection and started doxycycline, but his symptoms did not improve. He presented to urgent care with complaints of leg and back pain, nausea, chills and was diagnosed with upper respiratory infection and was discharged home with Tamiflu. The patient states that he started feeling weakness of his legs on Monday, which got worse on Monday and worst on Monday. He came to emergency department yesterday and was discharged home. He had stated that his legs had given out. Shortly after he was discharged home, he returned back and stated that his legs were weak, numb and numbness was reaching up to his groin in both legs. He was unable to walk. The patient was unable to urinate since Monday night. He had a Hsu catheter placed in the emergency department, and it is unclear how much urine was recovered after the catheterization. He states that he started feeling numbness, tingling in his legs reaching up to his groin last night. He started feeling slight weakness of his arms today and slight tingling of his arms, but his arms are still much better than his legs. He states that he is unable to move his legs. According to admission note, 1000 mL of urine was recovered after catheterization of his bladder. Dr. 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 Dr. Raymond called me this morning that the patient was maintaining his saturations and his vital capacity was within normal range this morning. I recommended spinal tap, which was attempted a couple of times during the daytime but was unsuccessful. Ultimately, the patient did not want to have spinal tap after so many attempts. The patient denies any headaches, neck pains, seizures, dysphagia, dysarthria, diplopia or urinary incontinence. He had urinary retention as described above. The patient has back pain over the last few days. PAST MEDICAL HISTORY: Hand surgery. SOCIAL HISTORY: He denies smoking, alcohol. He uses marijuana on a daily basis. FAMILY HISTORY: Significant for coronary artery disease. REVIEW OF SYSTEMS: All systems were reviewed and found to be noncontributory except as mentioned in the history present illness. HOME MEDICATIONS: - Tamiflu - ciprofloxacin 500 mg by mouth twice a day - ibuprofen 600 mg by mouth every 6 hours as needed ALLERGIES: None. PHYSICAL EXAMINATION: Temperature 98.7, pulse 61, respiratory rate 18, 97% saturation on room air. Blood pressure 124/65. Heart: Regular rate and rhythm. Lungs: Clear to auscultation. Abdomen: Soft, nontender, nondistended. No pedal edema. No musculoskeletal abnormalities. No rash. No signs of meningeal irritation. No tremor or dysmetria of arms. The patient is awake, alert, oriented to place, person and time. Normal speech comprehension and repetition. Extraocular muscles are intact. No nystagmus. Visual ponce are full to confrontation. 5/5 strength in bilateral upper extremities. Strength in his legs is 0/5 throughout the ankle, knee, hip flexors and extensors. There is no movement of his legs. The patient states that he is numb from his groin down. He is able to feel touch, and his joint position sense is intact. Plantars are mute. There is no clonus. Deep tendon flexes are absent throughout in both legs. His right biceps and brachial radialis reflexes are 2+ and the rest of the reflexes in bilateral upper extremities are absent. Gait could not be tested. DIAGNOSTIC STUDIES: MRI scan of lumbosacral spine was reviewed and showed mild degenerative disc disease at L5-S1 level. Radiologist called it mild enhancement of cauda equina, which I was not able to appreciate on my review. His forced vital capacity was 2.4 liters and negative inspiratory force (NIF) was -34 cm of water pressure. His CBC and metabolic profile were within normal limits. ASSESSMENT: 1. Paraplegia with urinary retention and much better preserved upper extremities, which will be considered very atypical for Guillain-Lupton syndrome. 2. Transverse myelitis and acute flaccid myelitis (AFM) due to EV-D68 are in differential diagnosis. PLAN: 1. MRI cervical and thoracic spine with and without contrast. 2. Check NMO antibody, ANCA, MOG antibody, Lyme antibody, serum copper, vitamin B12, LOIS, CRP, etc. 3. Reattempt spinal tap and check for cells protein, glucose, viral encephalitis panel, oligoclonal bands, EV-D68, etc. 4. Continue IVIG for total dose of 2 gm/kg given over 3 days. He already received 1 gm/kg dose today. IVIG can also be used to treat transverse myelitis. We will add Solu-Medrol 1000 mg IV daily for 10 days if MRI cervical and thoracic spine show clear evidence of transverse myelitis. 5. Acute flaccid myelitis due to EV-D68 would likely have the worse prognosis as there is no clear treatment. IVIG and Solu-Medrol have been tried without clear success. 6. Physical, occupational therapy and rehabilitation. Consider EMG nerve conduction study on outpatient basis.
[2019-08-17] VITALS (21 sets, daily range): BP systolic 110–157; BP diastolic 55–86; O2SAT 94–100
[2019-08-17] MEDS: ACETAMINOPHEN TAB 650MG DOSE (2X325MG) PO PRN (02:03)
[2019-08-17 05:15] LABS: HEMATOCRIT 40.6 % (42.0-52.0); HEMOGLOBIN 13.7 g/dl (13.5-17.5); MEAN CORPUSCULAR HEMOGLOBIN 30.2 pg (27.0-33.0); MEAN CORPUSCULAR HGB CONC 33.7 g/dl (32.0-36.5); MEAN CORPUSCULAR VOLUME 89.4 fl (80.0-96.0); PLATELET COUNT, AUTOMATED 166 10^3/uL (150-450); RED BLOOD COUNT 4.54 10^6/uL (4.30-6.10); WHITE BLOOD COUNT 2.2 10^3/uL (4.0-10.0)
[2019-08-17 05:47] LABS: BLOOD UREA NITROGEN 14 MG/DL (7-18); CARBON DIOXIDE LEVEL 25 MEQ/L (21-32); CHLORIDE LEVEL 109 MEQ/L (98-107); CREATININE FOR GFR 0.87 MG/DL (0.70-1.30); GLOMERULAR FILTRATION RATE > 60.0 (>60); GLUCOSE, FASTING 129 MG/DL (70-100); PHOSPHORUS LEVEL 3.1 MG/DL (2.5-4.9); POTASSIUM SERUM 4.5 MEQ/L (3.5-5.1); SODIUM LEVEL 139 MEQ/L (136-145)
[2019-08-17] MEDS ORDERED: IMMUNE GLOBULIN IV SCH ×4 (08:00)
[2019-08-17] MEDS ORDERED: IMMUNE GLOBULIN 10% 5GM 5 GM in IV 1 EA IV SCH (08:00)
[2019-08-17] MEDS ORDERED: IMMUNE GLOBULIN IV ONE (08:00)
[2019-08-17] MEDS ORDERED: IMMUNE GLOBULIN 10% 5GM 5 GM in IV 1 EA IV ONE (08:00)
[2019-08-17] MEDS ORDERED: IMMUNE GLOBULIN 10% 20 GM in IV 1 EA IV ONE (09:00)
[2019-08-17] MEDS ORDERED: IMMUNE GLOBULIN 10% 40 GM in IV 1 EA IV ONE (09:00)
[2019-08-17] MEDS: DOCUSATE SODIUM 100 MG CAP PO SCH ×2 (09:00→21:31)
[2019-08-17] MEDS ORDERED: IMMUNE GLOBULIN 10% 10 GM in IV 1 EA IV ONE (09:00)
[2019-08-17] MEDS: HEPARIN SOD (PORCINE) 5000 UNITS/ML VIAL (J1644 PER 1000UNITS) SC SCH ×2 (10:06→21:31)
[2019-08-17] MEDS: methylPREDNISolone 1,000 MG, VIAL MATE ADAPTER 1 EACH in D5W 250 ML IV SCH (10:07)
--- NOTE | 2019-08-17 22:27 | IPNPDOC ---
Date Seen The patient was seen on 08/17/19. Progress Note SUBJECTIVE: 24 y.o male w/ no significant PMH was admitted due to symptoms concerning for GBS. He has been monitored in the ICU and treated w/ IVIG; MRI of the cervical, thoracic & lumbar spine shows diffusely abnormal T2 hyperintense signal throughout the spinal cord consistent with transverse myelitis. He has also been started on Solu-medrol 1000 mg/day. He continues to have near complete paralysis of b/l LE with numbness & pain. He has been evaluated by Neurology, LP was recommended and attempted at bedside without success; patient is scheduled for LP by IR on Monday. He reports minimal, if any, change from yesterday and remains very anxious about his current predicament. He denies any SOB, CP, N/V/D or abdominal pain. 10 point review of system is negative except for above. PHYSICAL EXAMINATION: VITAL SIGNS: Please see below. GENERAL: No distress HEENT: Normocephalic, atraumatic, moist mucous membranes NECK: Supple CARDIOVASCULAR EXAMINATION: S1, S2, no murmurs RESPIRATORY EXAMINATION: Clear to auscultation, no wheezing ABDOMINAL EXAMINATION: Soft, nontender, nondistended, positive bowel sounds EXTREMITIES: no edema SKIN: No rash NEUROLOGICAL EXAMINATION: Alert and oriented 3, unable to move b/l LE, lack of sensation in b/l LE up to the groin, no sensory or motor deficits appreciated proximal to the groin PSYCHIATRIC EXAMINATION: anxious LABORATORY DATA, IMAGING STUDIES, MICROBIOLOGY: Please see below. ASSESSMENT AND PLAN: 24 y.o male w/ no PMH is admitted for acute transverse myelitis throughout the spinal column. PROBLEMS: 1. Longitudinally extensive transverse myelitis: - unknown etiology, initial workup pending, bedside LP attempted without success, will attempt fluoroscopy guided LP by IR on Monday; evaluated by Neurology, continue IVIG & high dose IV steroids, will attempt transfer to [facility] for possible Plasmapharesis and further workup/treatment. continue PT/OT VS, I&O, 24H, Fishbone Vital Signs/I&O Vital Signs Date Time Temp Pulse Resp B/P (MAP) Pulse Ox O2 Delivery O2 Flow Rate FiO2 08/17/19 20:04 26 08/17/19 18:00 96 Room Air 08/17/19 18:00 63 125/73 (90) 08/17/19 16:00 98.3 I&O- Last 24 Hours up to 6 AM 08/17/19 05:59 Intake Total 2856 ml Output Total 2575 ml Balance 281 ml Laboratory Data 24H LABS Laboratory Tests 2 08/17/19 04:56: 08/17/19 05:01: Nucleated Red Blood Cells % (auto) 0.0, Anion Gap 5L, Glomerular Filtration Rate > 60.0, Calcium Level 8.0L, Phosphorus Level 3.1, Magnesium Level 2.0, C- Reactive Protein, Quantitative < 0.30 CBC/BMP Laboratory Tests 08/17/19 05:01 AMANDA ALCARAZ MD Aug 17, 2019 22:27
[2019-08-17] MEDS: PREGABALIN 75 MG CAP(LYRICA) PO SCH (22:53)
[2019-08-18] VITALS (12 sets, daily range): BP systolic 107–154; BP diastolic 56–69; O2SAT 81–99
[2019-08-18 05:02] LABS: HEMATOCRIT 36.2 % (42.0-52.0); HEMOGLOBIN 12.3 g/dl (13.5-17.5); MEAN CORPUSCULAR HEMOGLOBIN 30.3 pg (27.0-33.0); MEAN CORPUSCULAR VOLUME 89.2 fl (80.0-96.0); PLATELET COUNT, AUTOMATED 158 10^3/uL (150-450); RED BLOOD COUNT 4.06 10^6/uL (4.30-6.10); WHITE BLOOD COUNT 8.3 10^3/uL (4.0-10.0)
[2019-08-18 05:24] LABS: BLOOD UREA NITROGEN 18 MG/DL (7-18); CALCIUM LEVEL 8.2 MG/DL (8.5-10.1); CARBON DIOXIDE LEVEL 23 MEQ/L (21-32); CHLORIDE LEVEL 108 MEQ/L (98-107); CREATININE FOR GFR 0.81 MG/DL (0.70-1.30); GLOMERULAR FILTRATION RATE > 60.0 (>60); GLUCOSE, FASTING 114 MG/DL (70-100); MAGNESIUM LEVEL 1.8 MG/DL (1.8-2.4); PHOSPHORUS LEVEL 3.8 MG/DL (2.5-4.9); POTASSIUM SERUM 4.4 MEQ/L (3.5-5.1); SODIUM LEVEL 138 MEQ/L (136-145)
[2019-08-18] MEDS ORDERED: IMMUNE GLOBULIN IV ONE ×2 (08:00)
[2019-08-18] MEDS ORDERED: IMMUNE GLOBULIN IV SCH ×2 (08:00)
[2019-08-18] MEDS: PREGABALIN 75 MG CAP(LYRICA) PO SCH ×2 (09:36→21:55)
[2019-08-18] MEDS: ENOXAPARIN 40 MG/0.4 ML SYRINGE (J1650) SC SCH (09:36)
[2019-08-18] MEDS: DOCUSATE SODIUM 100 MG CAP PO SCH ×2 (09:36→21:55)
[2019-08-18] MEDS: methylPREDNISolone 1,000 MG, VIAL MATE ADAPTER 1 EACH in D5W 250 ML IV SCH (09:37)
[2019-08-18] MEDS: LIDOCAINE 5% (LIDODERM) PATCH TD SCH (12:24)
[2019-08-18] MEDS: GABAPENTIN 100 MG CAP PO SCH ×3 (12:24→21:55)
--- NOTE | 2019-08-18 20:35 | IPNPDOC ---
Date Seen The patient was seen on 08/18/19. Progress Note SUBJECTIVE: 24 y.o male w/ no significant PMH was admitted due to symptoms concerning for GBS. He has been monitored in the ICU and treated w/ IVIG; MRI of the cervical, thoracic & lumbar spine shows diffusely abnormal T2 hyperintense signal throughout the spinal cord consistent with transverse myelitis. He has also been started on Solu-medrol 1000 mg/day. He continues to have near complete paralysis of b/l LE with numbness & pain. He has been evaluated by Neurology, LP was recommended and attempted at bedside without success; patient is scheduled for LP by IR on Monday. He reports minimal, if any, change from yesterday and remains very anxious about his current predicament. He denies any SOB, CP, N/V/D or abdominal pain. 08/18/19 Patient with no change from yesterday, continues to have near complete paralysis of bilateral lower extremities with paresthesia. Discussed case with neurologist at [facility] for possible transfer and plasmapheresis. Neurologist at [facility] does not see any acute indication for transfer or plasmapheresis, recommends that we continue high-dose IV steroids along with PT/OT for now. 10 point review of system is negative except for above. PHYSICAL EXAMINATION: VITAL SIGNS: Please see below. GENERAL: No distress HEENT: Normocephalic, atraumatic, moist mucous membranes NECK: Supple CARDIOVASCULAR EXAMINATION: S1, S2, no murmurs RESPIRATORY EXAMINATION: Clear to auscultation, no wheezing ABDOMINAL EXAMINATION: Soft, nontender, nondistended, positive bowel sounds EXTREMITIES: no edema SKIN: No rash NEUROLOGICAL EXAMINATION: Alert and oriented 3, unable to move b/l LE, lack of sensation in b/l LE up to the groin, no sensory or motor deficits appreciated proximal to the groin PSYCHIATRIC EXAMINATION: anxious LABORATORY DATA, IMAGING STUDIES, MICROBIOLOGY: Please see below. ASSESSMENT AND PLAN: 24 y.o male w/ no PMH is admitted for acute transverse myelitis throughout the spinal column. PROBLEMS: 1. Longitudinally extensive transverse myelitis: - unknown etiology, initial workup pending, bedside LP attempted without success, will attempt fluoroscopy guided LP by IR on Monday; evaluated by Neurology, completed last dose of IVIG today, continue Solu-Medrol 1 g daily, attempted transfer to [facility] for possible plasmapheresis, but neurologist at [facility] does not recommend plasmapheresis at this time and agrees with our current management, continue PT/OT. Will consult infectious disease to help with establishing a diagnosis. VS, I&O, 24H, Fishbone Vital Signs/I&O Vital Signs Date Time Temp Pulse Resp B/P (MAP) Pulse Ox O2 Delivery O2 Flow Rate FiO2 08/18/19 16:00 98.0 63 18 154/69 (97) 96 Room Air I&O- Last 24 Hours up to 6 AM 08/18/19 06:00 Intake Total 2346 ml Output Total 2050 ml Balance 296 ml Laboratory Data 24H LABS Laboratory Tests 2 08/18/19 04:51: Nucleated Red Blood Cells % (auto) 0.0, Anion Gap 7L, Glomerular Filtration Rate > 60.0, Calcium Level 8.2L, Phosphorus Level 3.8#, Magnesium Level 1.8 CBC/BMP Laboratory Tests 08/18/19 04:51 AMANDA ALCARAZ MD Aug 18, 2019 20:35
[2019-08-18] MEDS: **NOTE PATIENT COMMENT** MISC XX SCH (21:56)
[2019-08-19] VITALS (22 sets, daily range): BP systolic 118–154; BP diastolic 62–84; O2SAT 96–100
[2019-08-19 05:41] LABS: HEMOGLOBIN 12.2 g/dl (13.5-17.5); MEAN CORPUSCULAR HEMOGLOBIN 30.7 pg (27.0-33.0); MEAN CORPUSCULAR HGB CONC 34.9 g/dl (32.0-36.5); MEAN CORPUSCULAR VOLUME 87.9 fl (80.0-96.0); PLATELET COUNT, AUTOMATED 180 10^3/uL (150-450); RED BLOOD COUNT 3.98 10^6/uL (4.30-6.10); WHITE BLOOD COUNT 8.2 10^3/uL (4.0-10.0)
[2019-08-19 06:04] LABS: BLOOD UREA NITROGEN 20 MG/DL (7-18); CALCIUM LEVEL 8.3 MG/DL (8.5-10.1); CARBON DIOXIDE LEVEL 25 MEQ/L (21-32); CHLORIDE LEVEL 106 MEQ/L (98-107); CREATININE FOR GFR 0.78 MG/DL (0.70-1.30); GLOMERULAR FILTRATION RATE > 60.0 (>60); GLUCOSE, FASTING 109 MG/DL (70-100); SODIUM LEVEL 136 MEQ/L (136-145)
--- NOTE | 2019-08-19 08:06 | IPNPDOC ---
Date Seen The patient was seen on 08/19/19. Progress Note PROCEDURE NOTE DATE OF PROCEDURE: 16 August 2019 TIME OF PROCEDURE: 11:30AM LOCATION OF PROCEDURE: ICU BED 05 PROCEDURE: Lumbar puncture INDICATION: Ascending weakness, r/o Guillian [place] Syndrome PROCEDURE RELIGIOUS RITUAL SLAUGHTERER: Jessy Meléndez MD and Rosaura Cano MD CONSENT: Consent was obtained from patient and mother prior to the procedure. Indications, risks, and benefits were explained at length. PROCEDURE SUMMARY: Pre-procedure sedation was given with versed 2mg IV x1. A time-out was performed. Proper protective equipment, including sterile surgical gloves, gown, and mask were worn. The patient was placed in the left lateral decubitus position with help from the nursing staff. The area was cleansed and draped in usual sterile fashion using betadine scrub. Anesthesia was achieved with 1% lidocaine. A 20-gauge 3.5-inch spinal needle was placed in the L4/S1 lumbar interspace. Several attempts were made inserting the needle into the space but proceduralist was unable to obtain sample of cerebral spinal fluid. A sterile bandaid was placed over the puncture site and hemostasis was achieved. The patient had no immediate complications and tolerated the procedure well. Estimated blood loss was 5cc. GME ATTESTATION GME ATTESTATION My faculty preceptor for this patient encounter was physically present during the encounter and was fully available. All aspects of the patient interview, examination, medical decision making process, and medical care plan development were reviewed and approved by the faculty preceptor. The faculty preceptor is aware and concurs with the plan as stated in the body of this note and will attest to such by his/her cosignature. ATTENDING NOTE I, Jessy Meléndez, was present and supervised the entirety of the procedure ROSAURA CANO MD Aug 19, 2019 08:06 JESSY MELÉNDEZ MD Aug 19, 2019 14:31
[2019-08-19] MEDS: PREGABALIN 75 MG CAP(LYRICA) PO SCH ×2 (09:39→21:03)
[2019-08-19] MEDS: GABAPENTIN 100 MG CAP PO SCH ×3 (09:39→21:03)
[2019-08-19] MEDS: DOCUSATE SODIUM 100 MG CAP PO SCH ×2 (09:39→21:04)
[2019-08-19] MEDS: methylPREDNISolone 1,000 MG, VIAL MATE ADAPTER 1 EACH in D5W 250 ML IV SCH (12:07)
[2019-08-19] MEDS: LIDOCAINE 5% (LIDODERM) PATCH TD SCH (12:07)
[2019-08-19 16:18] LABS: CSF TUBE# GLU TUBE 2; CSF TUBE# TP TUBE 2; GLUCOSE CSF 60 MG/DL (40-75); TOTAL PROTEIN,CSF 36 MG/DL (15-45)
[2019-08-19 16:34] LABS: APPEARANCE, CSF CLEAR (CLEAR); COLOR, CSF COLORLESS (COLORLESS); CSF TUBE# CELL CNT TUBE 1
[2019-08-19 16:35] LABS: APPEARANCE, CSF CLEAR (CLEAR); COLOR, CSF COLORLESS (COLORLESS); CSF TUBE# CELL CNT TUBE 4
--- NOTE | 2019-08-19 16:45 | REP ---
Procedure: Fluoro guidance for lumbar puncture. The procedure was performed under the direct supervision of Dr. Bonilla. The risks and benefits of the procedure were explained to the patient and informed consent was obtained. The L3-4 interspace was localized using fluoroscopic guidance. The skin was prepped and draped in a sterile fashion. 1% lidocaine was used as a local anesthetic. Using fluoroscopic guidance a 22-gauge spinal needle was inserted and advanced into the thecal sac. 12 ml of spinal fluid was withdrawn and sent to lab. The patient tolerated the procedure well and there were no immediate complications. Less than 6 seconds of fluoro time was utilized for this procedure. Electronically Signed by BRAEDEN Maurer 08/19/2019 04:34 P Electronically Signed by Brian Bonilla MD 08/19/2019 04:36 P
--- NOTE | 2019-08-19 18:07 | IPNPDOC ---
Date Seen The patient was seen on 08/19/19. Progress Note SUBJECTIVE: 24 y.o male w/ no significant PMH was admitted due to symptoms concerning for GBS. He has been monitored in the ICU and treated w/ IVIG; MRI of the cervical, thoracic & lumbar spine shows diffusely abnormal T2 hyperintense signal throughout the spinal cord consistent with transverse myelitis. He has also been started on Solu-medrol 1000 mg/day. He continues to have near complete paralysis of b/l LE with numbness & pain. He has been evaluated by Neurology, LP was recommended and attempted at bedside without success; patient is scheduled for LP by IR on Monday. He reports minimal, if any, change from yesterday and remains very anxious about his current predicament. He denies any SOB, CP, N/V/D or abdominal pain. 08/18/19 Patient with no change from yesterday, continues to have near complete paralysis of bilateral lower extremities with paresthesia. Discussed case with neurologist at [facility] for possible transfer and plasmapheresis. Neurologist at [facility] does not see any acute indication for transfer or plasmapheresis, recommends that we continue high-dose IV steroids along with PT/OT for now. 08/19/19 Patient seen the morning, had LP earlier today with interventional radiology, uncomplicated, unchanged from yesterday, no change in pain or lower extremity weakness at this time. No new complaints 10 point review of system is negative except for above. PHYSICAL EXAMINATION: VITAL SIGNS: Please see below. GENERAL: No distress HEENT: Normocephalic, atraumatic, moist mucous membranes NECK: Supple CARDIOVASCULAR EXAMINATION: S1, S2, no murmurs RESPIRATORY EXAMINATION: Clear to auscultation, no wheezing ABDOMINAL EXAMINATION: Soft, nontender, nondistended, positive bowel sounds EXTREMITIES: no edema SKIN: No rash NEUROLOGICAL EXAMINATION: Alert and oriented 3, unable to move b/l LE except for minimal movement in the toes, decreased sensation in b/l LE up to the groin, no sensory or motor deficits appreciated proximal to the groin PSYCHIATRIC EXAMINATION: anxious LABORATORY DATA, IMAGING STUDIES, MICROBIOLOGY: Please see below. ASSESSMENT AND PLAN: 24 y.o male w/ no PMH is admitted for acute transverse myelitis throughout the spinal column. PROBLEMS: 1. Longitudinally extensive transverse myelitis: - unknown etiology, initial workup negative to date, and underwent LP by interventional radiology today, labs pending, completed IVIG 2 g per Gram over 3 days, continue Solu-Medrol 1 g daily, discussed with neurologist at [facility], no need for transfer at this time, infectious disease consulted to help establish a diagnosis, continue PT/OT. VS, I&O, 24H, Fishbone Vital Signs/I&O Vital Signs Date Time Temp Pulse Resp B/P (MAP) Pulse Ox O2 Delivery O2 Flow Rate FiO2 08/19/19 14:00 97 Room Air 08/19/19 12:00 97.0 57 16 135/65 (88) I&O- Last 24 Hours up to 6 AM 08/19/19 05:59 Intake Total 2396 ml Output Total 2400 ml Balance -4 ml Laboratory Data 24H LABS Laboratory Tests 2 08/19/19 05:10: Nucleated Red Blood Cells % (auto) 0.0, Anion Gap 5L, Glomerular Filtration Rate > 60.0, Calcium Level 8.3L 08/19/19 10:25: CSF Appearance CLEAR, CSF Color COLORLESS, CSF WBC (Auto) 44H, CSF RBC (Auto) < 2, CSF Glucose (Tube 1) TUBE 2, CSF Total Protein (Tube 1) TUBE 2, CSF Cell Count Tube # TUBE 1, CSF Mononuclear Cells % (Auto) 100.0H, CSF Polynuclear WBCs (%) 0.0, CSF Glucose 60, CSF Total Protein 36 08/19/19 10:26: CSF Appearance CLEAR, CSF Color COLORLESS, CSF WBC (Auto) 47H, CSF RBC (Auto) < 2, CSF Cell Count Tube # TUBE 4, CSF Mononuclear Cells % (Auto) 100.0H, CSF Polynuclear WBCs (%) 0.0 08/19/19 16:36: CBC/BMP Laboratory Tests 08/19/19 05:10 Microbiology Microbiology 08/19/19 - Final, Complete 08/19/19 Fungal Smear, Received Pending 08/19/19 Fungal Culture, Received Pending 08/19/19 Viral Culture, Received Pending 08/19/19 Gram Stain - Preliminary, Resulted 08/19/19 CSF Culture, Resulted Pending AMANDA ALCARAZ MD Aug 19, 2019 18:07
[2019-08-19] MEDS: **NOTE PATIENT COMMENT** MISC XX SCH (21:04)
--- NOTE | 2019-08-19 22:14 | CR ---
DATE OF CONSULTATION: 08/19/2019 INFECTIOUS DISEASE CONSULTATION REASON FOR CONSULTATION: Transverse myelitis. HISTORY OF THE PRESENT ILLNESS: Migue is a 24-year-old gentleman who started not feeling well on July 29, 2019. He went to [facility] complaining of dysuria, urgency, frequency, and he reported that he had a history of sexually transmitted disease (STD). He was diagnosed with a urinary tract infection and was given doxycycline twice a day for 7 days. His urinalysis had 25 white cells. Urine culture was negative. The patient presented to the urgent care again at [facility] on August 12, 2019 complaining of a low grade fever. His brother had the flu. He had a headache, body aches with a slight cough. His temperature was 99. He had some chills, and therefore, he was treated with Tamiflu for flu-like illness with a positive contact from his brother and he did not get tested for the flu. He came to our emergency room on August 14, 2019 gave similar symptoms and he was discharged with flu-like illness diagnosis. The patient presented again on August 15, 2019 with lower extremity weakness, difficulty walking. He had fallen, he had numbness extending from his lower extremities all the way to his abdomen and was not able to walk. The patient had no difficulty breathing. No cough or shortness of breath. He felt his belly was numb. He had a bladder ultrasound, which showed a 1000 mL urinary retention. He had an intact rectal tone in the emergency room. 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 He is currently day #4. He received 1 gram of Solu-Medrol and IVIG 35 grams which he is still receiving. He states today that he has some blurry vision and a mild headache. No nausea, vomiting or diarrhea. He is very upset about his paralysis. He states he plays basketball on a league, and he wants to get better to be able to play. PAST MEDICAL HISTORY: Hist past medical history is unrevealing except for history of STDs. PAST SURGICAL HISTORY: Hand surgery. SOCIAL HISTORY: THC use. 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 FAMILY HISTORY: Significant for coronary artery disease. ALLERGIES: No known drug allergies. MEDICATIONS: - gabapentin 100 mg by mouth three times a day - lidocaine patch - Lyrica 75 mg by mouth twice a day - methylprednisolone a gram IV daily - Colace 100 mg by mouth twice a day - Tylenol as needed - Milk of Magnesia as needed LABORATORY: On admission, white count was 3.9, hemoglobin 14, hematocrit 41.1, platelets 168. Currently, his white count is 8.2, hemoglobin 12.2, hematocrit 35, platelets 180. ESR 5. Sodium 136, potassium 4, chloride 106, bicarbonate 25, BUN 20, creatinine 0.78, glucose 109, calcium 8.3, phosphorus 3.8, magnesium 1.8, CRP less than 0.3, vitamin B12 is 632 - normal, vitamin B1 is pending. Immunology: LOIS, myeloperoxidase, SS-A, SS-B, anti-Hu antibody, neuromyelitis optic IgG pending. Lyme disease serology pending. HIV negative. CSF had 44 white cells, less than 2 red cells with 100% lymphocytes, glucose 60 and total protein 36. CSF VDRL, Lyme serology, oligoclonal bands are pending. IMAGING STUDIES: Cervical and lumbar spine MRI shows diffusely abnormal T2 hyperintense signal throughout the thoracic spinal cord extending from C3 into the conus medullaris, primarily involving the central spinal cord. The spinal cord is mildly expanded with no discrete masses, no syrinx identified. This is compatible with transverse myelitis. Lumbar MRI shows mild enhancement of the cauda equina. REVIEW OF SYSTEMS: The patient had a flu-like illness with low grade temperature up to 100.7, some chills, a nonspecific headache, a description of a cough that he does not recall currently but he was seen at an urgent care on August 12, 2019 complaining of a cough. He also had some dysuria on July 29, 2019 for which he went to get care at an urgent care and urine culture was negative. He has lower extremity paralysis, complains of some tremor of upper extremities, numbness up to his belly button. No confusion. He has a mild nonspecific headache and now has blurry vision. PHYSICAL EXAM: He is a pleasant young gentleman in no acute distress, frustrated. Temperature is 98, pulse 76, respirations 18, blood pressure 154/70, oxygen saturation (O2 sat) 96% on room air. Heart: Normal S1, S2. No murmurs, rubs or gallops. Lungs are clear. No wheezes, rales or rhonchi. Abdomen: Soft, nontender. No hepatosplenomegaly. Back: No costovertebral angle or lumbosacral tenderness. Extremities: No clubbing, cyanosis or edema. He has no lower extremity strength, complete paralysis. He has decreased sensation up until the umbilicus level around T10. He has a faint tremor in both hands. Neck is supple. No jugular venous distention (JVD). No bruits. Neurologic: Cranial nerves are intact. Absent reflexes both knees. IMPRESSION: This is a 24-year-old gentleman who presented on July 29, 2019 to [facility] with dysuria symptoms, treated with doxycycline for one week. A week later again presented to [facility] complaining of flu-like illness, given Tamiflu as his brother had the flu, now admitted to the hospital with a transverse myelitis picture compatible with longitudinally extensive transverse myelitis starting at C3 level and extending to the lumbar spine. The patient has received IVIG and IV Solu-Medrol for the past 3 days with minimal improvement. Differential diagnosis includes idiopathic versus postviral, post vaccination. The patient seems to have had at least some kind of urinary symptoms 2 weeks ago and then a flu-like illness after his brother had the flu. Presentation also could be related to Enterovirus D68 which would not be picked up on our current BioFire PCR. CSF culture is pending. His gram stain had a few white cells, no organisms seen. BioFire PCR multiplex was negative for VZV, HSV, HHV-6, CMV, Neisseria, Listeria, and bacterial meningitis. Respiratory panel was ordered but not done yet. I would suggest also obtaining hepatitis serology, hepatitis B and C; the patient has extensive tattoos. Mycoplasma antibodies were also ordered as transverse myelitis has been associated with Mycoplasma. I will contact the state regarding Enterovirus D68 testing to send a specimen to [facility] as Enterovirus PCR on the multiplex testing in our lab does not detect Enterovirus D68. Would suggest also obtaining a brain MRI as the patient has developed some blurry vision. The case has been discussed with Dr. Jo who agrees with MRI. [facility]
[2019-08-20] VITALS (21 sets, daily range): BP systolic 116–167; BP diastolic 56–74; O2SAT 88–100
[2019-08-20 05:51] LABS: HEMATOCRIT 36.1 % (42.0-52.0); HEMOGLOBIN 12.4 g/dl (13.5-17.5); MEAN CORPUSCULAR HEMOGLOBIN 30.1 pg (27.0-33.0); MEAN CORPUSCULAR HGB CONC 34.3 g/dl (32.0-36.5); MEAN CORPUSCULAR VOLUME 87.6 fl (80.0-96.0); PLATELET COUNT, AUTOMATED 188 10^3/uL (150-450); RED BLOOD COUNT 4.12 10^6/uL (4.30-6.10)
[2019-08-20 06:12] LABS: BLOOD UREA NITROGEN 19 MG/DL (7-18); CALCIUM LEVEL 8.3 MG/DL (8.5-10.1); CARBON DIOXIDE LEVEL 28 MEQ/L (21-32); CHLORIDE LEVEL 104 MEQ/L (98-107); CREATININE FOR GFR 0.72 MG/DL (0.70-1.30); GLOMERULAR FILTRATION RATE > 60.0 (>60); GLUCOSE, FASTING 117 MG/DL (70-100); MAGNESIUM LEVEL 1.9 MG/DL (1.8-2.4); PHOSPHORUS LEVEL 3.6 MG/DL (2.5-4.9); POTASSIUM SERUM 4.3 MEQ/L (3.5-5.1); SODIUM LEVEL 136 MEQ/L (136-145)
[2019-08-20] MEDS: PREGABALIN 75 MG CAP(LYRICA) PO SCH ×2 (08:33→20:49)
[2019-08-20] MEDS: LIDOCAINE 5% (LIDODERM) PATCH TD SCH (08:33)
[2019-08-20] MEDS: GABAPENTIN 100 MG CAP PO SCH ×3 (08:33→20:48)
[2019-08-20] MEDS: DOCUSATE SODIUM 100 MG CAP PO SCH ×2 (08:33→20:48)
[2019-08-20] MEDS: methylPREDNISolone 1,000 MG, VIAL MATE ADAPTER 1 EACH in D5W 250 ML IV SCH (08:34)
[2019-08-20] MEDS ORDERED: MIRALAX *UNIT DOSE* 17GM PACKET PO PRN (11:45)
--- NOTE | 2019-08-20 16:48 | IPNPDOC ---
Date Seen The patient was seen on 08/20/19. Progress Note SUBJECTIVE: 24 y.o male w/ no significant PMH was admitted due to symptoms concerning for GBS. He has been monitored in the ICU and treated w/ IVIG; MRI of the cervical, thoracic & lumbar spine shows diffusely abnormal T2 hyperintense signal throughout the spinal cord consistent with transverse myelitis. He has also been started on Solu-medrol 1000 mg/day. He continues to have near complete paralysis of b/l LE with numbness & pain. He has been evaluated by Neurology, LP was recommended and attempted at bedside without success; patient is scheduled for LP by IR on Monday. He reports minimal, if any, change from yesterday and remains very anxious about his current predicament. He denies any SOB, CP, N/V/D or abdominal pain. 08/18/19 Patient with no change from yesterday, continues to have near complete paralysis of bilateral lower extremities with paresthesia. Discussed case with neurologist at [facility] for possible transfer and plasmapheresis. Neurologist at [facility] does not see any acute indication for transfer or plasmapheresis, recommends that we continue high-dose IV steroids along with PT/OT for now. 08/19/19 Patient seen the morning, had LP earlier today with interventional radiology, uncomplicated, unchanged from yesterday, no change in pain or lower extremity weakness at this time. No new complaints 08/20/19 Patient comfortable in bed, reports mild back pain overnight at the site of LP, weakness, unchanged from yesterday, reports lower abdominal pain at the site of Lovenox shots, no change in sensory deficits. 10 point review of system is negative except for above. PHYSICAL EXAMINATION: VITAL SIGNS: Please see below. GENERAL: No distress HEENT: Normocephalic, atraumatic, moist mucous membranes NECK: Supple CARDIOVASCULAR EXAMINATION: S1, S2, no murmurs RESPIRATORY EXAMINATION: Clear to auscultation, no wheezing ABDOMINAL EXAMINATION: Soft, nontender, nondistended, positive bowel sounds EXTREMITIES: no edema SKIN: No rash NEUROLOGICAL EXAMINATION: Alert and oriented 3, unable to move b/l LE except for minimal movement in the toes, decreased sensation in b/l LE up to the groin, no sensory or motor deficits appreciated proximal to the groin PSYCHIATRIC EXAMINATION: anxious LABORATORY DATA, IMAGING STUDIES, MICROBIOLOGY: Please see below. ASSESSMENT AND PLAN: 24 y.o male w/ no PMH is admitted for acute transverse myelitis throughout the spinal column. PROBLEMS: 1. Longitudinally extensive transverse myelitis: - unknown etiology, workup has been negative to date, completed IVIG 2 g per kilogram over 3 days, continue Solu-Medrol 1 g daily, discussed with neurologist at [facility], no need for transfer or plasmapheresis at this time, infectious disease consult appreciated, neurology following, continue PT/OT. VS, I&O, 24H, Fishbone Vital Signs/I&O Vital Signs Date Time Temp Pulse Resp B/P (MAP) Pulse Ox O2 Delivery O2 Flow Rate FiO2 08/20/19 12:00 97.7 55 17 116/56 (76) 93 Room Air I&O- Last 24 Hours up to 6 AM 08/20/19 06:00 Intake Total 3360 ml Output Total 2250 ml Balance 1110 ml Laboratory Data 24H LABS Laboratory Tests 2 08/20/19 05:36: Nucleated Red Blood Cells % (auto) 0.0, Anion Gap 4L, Glomerular Filtration Rate > 60.0, Calcium Level 8.3L, Phosphorus Level 3.6, Magnesium Level 1.9 CBC/BMP Laboratory Tests 08/20/19 05:36 Microbiology Microbiology 08/20/19 Respiratory Virus Panel (PCR) ([facility]) - Final, Complete 08/19/19 - Final, Complete 08/19/19 Fungal Smear, Received Pending 08/19/19 Fungal Culture, Received Pending 08/19/19 Viral Culture, Received Pending 08/19/19 Gram Stain - Final, Resulted 08/19/19 CSF Culture, Resulted Pending AMANDA ALCARAZ MD Aug 20, 2019 16:48
--- NOTE | 2019-08-20 19:05 | IPNPDOC ---
Date Seen The patient was seen on 08/20/19. Progress Note SUBJECTIVE: Patient is a 24 year old male with no significant past medical history and was admitted due to symptoms concerning for Guillain-[place] Syndrome. MRI of the cervical, thoracic & lumbar spine shows diffusely abnormal T2 hyperintense signal throughout the spinal cord consistent with transverse myelitis. He was treated with three days of IVIG for three days which ended on 08/18 and continues on Solu-medrol 1000 mg/day. He continues to have near complete paralysis of b/l lower extremities with numbness & pain. Today patient was playing his Gameboy. He states no acute changes or events overnight. He remains hopeful and optimistic. Patient remains unable to move b/l lower extremities ex cept for minimal movement in the toes, decreased sensation in b/l LE up to the groin, no sensory or motor deficits appreciated proximal to the groin. Patient denies fever, night sweats, nausea, vomiting, dysphagia, chest pain, shortness of breath, and abdominal pain. OBJECTIVE PHYSICAL EXAMINATION: VITAL SIGNS: Please see below. GENERAL: No acute distress, patient is anxious. HEENT: Normocephalic, atraumatic, moist mucous membranes CARDIOVASCULAR EXAMINATION: Regular rate and rhythm, Normal S1 and S2, no murmurs appreciated. RESPIRATORY EXAMINATION: Clear to auscultation, no wheezing ABDOMINAL EXAMINATION: Soft, nontender, nondistended, positive bowel sounds EXTREMITIES: no edema SKIN: No rash NEUROLOGICAL EXAMINATION: Alert and oriented 3, unable to move b/l LE except for minimal movement in the toes, decreased sensation in b/l LE up to the groin, no sensory or motor deficits appreciated proximal to the groin PSYCHIATRIC EXAMINATION: Patient is attempting to remain positive. He continues to try to find a reason for why this would happen to him, "What did I do. I play basketball. I didn't hurt anyone." He is entertaining himself with video games and is enthusiastic about them. He was playing a Gameboy. Monitor for psychological regression but it is understandable as he is limited in his activities. Monitor for depression throughout hospital course. LABORATORY DATA, IMAGING STUDIES, MICROBIOLOGY: Please see below. ASSESSMENT AND PLAN: This is a 24 year old male with no significant past medical history who was admitted due to symptoms concerning for Guillain-[place] Syndrome. MRI of the cervical, thoracic & lumbar spine shows diffusely abnormal T2 hyperintense signal throughout the spinal cord consistent with transverse myelitis. He was treated with three days of IVIG for three days which ended on 08/18 and continues on Solu-medrol 1000 mg/day. He continues to have near complete paralysis of b/l LE with numbness & pain. PROBLEMS: 1. Longitudinally extensive transverse myelitis: Unknown etiology, workup has been negative to date, completed IVIG 2 g per kilogram over 3 days with end date of 08/18, continue Solu-Medrol 1 g daily respiratory panel and CSF PCR were negative for enterovirus PCR . No need to send specimen to [facility] for EV ED68 as you would have had a positive biofire PCR GME ATTESTATION My faculty preceptor for this patient encounter was physically present during the encounter and was fully available. All aspects of the patient interview, examination, medical decision making process, and medical care plan development were reviewed and approved by the faculty preceptor. The faculty preceptor is aware and concurs with the plan as stated in the body of this note and will attest to such by his/her cosignature. VS, I&O, 24H, Fishbone Vital Signs/I&O Vital Signs Date Time Temp Pulse Resp B/P (MAP) Pulse Ox O2 Delivery O2 Flow Rate FiO2 08/20/19 16:00 98.0 61 17 157/68 (97) 97 Room Air I&O- Last 24 Hours up to 6 AM 08/20/19 06:00 Intake Total 3360 ml Output Total 2250 ml Balance 1110 ml Laboratory Data 24H LABS Laboratory Tests 2 08/20/19 05:36: Nucleated Red Blood Cells % (auto) 0.0, Anion Gap 4L, Glomerular Filtration Rate > 60.0, Calcium Level 8.3L, Phosphorus Level 3.6, Magnesium Level 1.9 CBC/BMP Laboratory Tests 08/20/19 05:36 Microbiology Microbiology 08/20/19 Respiratory Virus Panel (PCR) ([facility]) - Final, Complete 08/19/19 - Final, Complete 08/19/19 Fungal Smear, Received Pending 08/19/19 Fungal Culture, Received Pending 08/19/19 Viral Culture, Received Pending 08/19/19 Gram Stain - Final, Resulted 08/19/19 CSF Culture, Resulted Pending ANDREA FERRERA OMS-IV Aug 20, 2019 18:24 Kelli Elena MD Aug 22, 2019 17:08
[2019-08-20] MEDS: **NOTE PATIENT COMMENT** MISC XX SCH (20:49)
[2019-08-21] VITALS (16 sets, daily range): BP systolic 129–153; BP diastolic 58–73; O2SAT 97–100
[2019-08-21 05:57] LABS: HEMATOCRIT 35.8 % (42.0-52.0); HEMOGLOBIN 12.3 g/dl (13.5-17.5); MEAN CORPUSCULAR HEMOGLOBIN 30.1 pg (27.0-33.0); MEAN CORPUSCULAR HGB CONC 34.4 g/dl (32.0-36.5); MEAN CORPUSCULAR VOLUME 87.7 fl (80.0-96.0); PLATELET COUNT, AUTOMATED 222 10^3/uL (150-450); RED BLOOD COUNT 4.08 10^6/uL (4.30-6.10); WHITE BLOOD COUNT 11.9 10^3/uL (4.0-10.0)
[2019-08-21 06:28] LABS: BLOOD UREA NITROGEN 22 MG/DL (7-18); CARBON DIOXIDE LEVEL 28 MEQ/L (21-32); CHLORIDE LEVEL 104 MEQ/L (98-107); CREATININE FOR GFR 0.87 MG/DL (0.70-1.30); GLOMERULAR FILTRATION RATE > 60.0 (>60); GLUCOSE, FASTING 111 MG/DL (70-100); POTASSIUM SERUM 3.8 MEQ/L (3.5-5.1); SODIUM LEVEL 137 MEQ/L (136-145)
[2019-08-21 06:29] LABS: ALBUMIN 2.7 GM/DL (3.2-5.2); ALT/SGPT 57 U/L (12-78); BILIRUBIN,TOTAL 0.4 MG/DL (0.2-1.0); CALCIUM LEVEL 8.4 MG/DL (8.5-10.1); PHOSPHORUS LEVEL 2.9 MG/DL (2.5-4.9); TOTAL PROTEIN 7.6 GM/DL (6.4-8.2)
[2019-08-21] MEDS: LACTULOSE 20 GM/30 ML SYRUP UD PO PRN ×2 (07:26→20:33)
[2019-08-21] MEDS: MOM 30ML SUSPENSION UDC PO PRN ×2 (07:26→20:33)
[2019-08-21] MEDS: LIDOCAINE 5% (LIDODERM) PATCH TD SCH (08:57)
[2019-08-21] MEDS: PREGABALIN 75 MG CAP(LYRICA) PO SCH ×2 (08:57→20:33)
[2019-08-21] MEDS: methylPREDNISolone 1,000 MG, VIAL MATE ADAPTER 1 EACH in D5W 250 ML IV SCH (08:57)
[2019-08-21] MEDS: GABAPENTIN 100 MG CAP PO SCH ×3 (08:57→20:33)
[2019-08-21] MEDS: DOCUSATE SODIUM 100 MG CAP PO SCH ×2 (08:57→20:33)
[2019-08-21] MEDS: ENOXAPARIN 40 MG/0.4 ML SYRINGE (J1650) SC SCH ×2 (08:58→09:00)
[2019-08-21] MEDS ORDERED: ONDANSETRON 4MG/2ML VIAL (J2405) IV PRN (10:45)
[2019-08-21 14:03] LABS: MYCOPLASMA PNEUMONIAE IgG 1122 U/mL (0-99); MYCOPLASMA PNEUMONIAE IgM <770 U/mL (0-769)
--- NOTE | 2019-08-21 17:39 | IPNPDOC ---
Date Seen The patient was seen on 08/21/19. Progress Note SUBJECTIVE: 24 y.o male w/ no significant PMH was admitted due to symptoms concerning for GBS. He has been monitored in the ICU and treated w/ IVIG; MRI of the cervical, thoracic & lumbar spine shows diffusely abnormal T2 hyperintense signal throughout the spinal cord consistent with transverse myelitis. He has also been started on Solu-medrol 1000 mg/day. He continues to have near complete paralysis of b/l LE with numbness & pain. He has been evaluated by Neurology, LP was recommended and attempted at bedside without success; patient is scheduled for LP by IR on Monday. He reports minimal, if any, change from yesterday and remains very anxious about his current predicament. He denies any SOB, CP, N/V/D or abdominal pain. 08/18/19 Patient with no change from yesterday, continues to have near complete paralysis of bilateral lower extremities with paresthesia. Discussed case with neurologist at [facility] for possible transfer and plasmapheresis. Neurologist at [facility] does not see any acute indication for transfer or plasmapheresis, recommends that we continue high-dose IV steroids along with PT/OT for now. 08/19/19 Patient seen the morning, had LP earlier today with interventional radiology, uncomplicated, unchanged from yesterday, no change in pain or lower extremity weakness at this time. No new complaints 08/20/19 Patient comfortable in bed, reports mild back pain overnight at the site of LP, weakness, unchanged from yesterday, reports lower abdominal pain at the site of Lovenox shots, no change in sensory deficits. 08/21/19 Patient having nausea and vomiting, otherwise unchanged from yesterday, no change in motor or sensory deficits, patient and family's questions answered. 10 point review of system is negative except for above. PHYSICAL EXAMINATION: VITAL SIGNS: Please see below. GENERAL: No distress HEENT: Normocephalic, atraumatic, moist mucous membranes NECK: Supple CARDIOVASCULAR EXAMINATION: S1, S2, no murmurs RESPIRATORY EXAMINATION: Clear to auscultation, no wheezing ABDOMINAL EXAMINATION: Soft, nontender, nondistended, positive bowel sounds EXTREMITIES: no edema SKIN: No rash NEUROLOGICAL EXAMINATION: Alert and oriented 3, unable to move b/l LE except for minimal movement in the toes, decreased sensation in b/l LE up to the groin, no sensory or motor deficits appreciated proximal to the groin PSYCHIATRIC EXAMINATION: anxious LABORATORY DATA, IMAGING STUDIES, MICROBIOLOGY: Please see below. ASSESSMENT AND PLAN: 24 y.o male w/ no PMH is admitted for acute transverse myelitis throughout the spinal column. PROBLEMS: 1. Longitudinally extensive transverse myelitis: - unknown etiology, workup has been negative to date, further serological workup pending, completed IVIG 2 g per kilogram over 3 days, continue Solu-Medrol 1 g daily, discussed with neurologist at [facility], no need for transfer or plasmapheresis at this time, infectious disease consult appreciated, neurology following, continue PT/OT. VS, I&O, 24H, Fishbone Vital Signs/I&O Vital Signs Date Time Temp Pulse Resp B/P (MAP) Pulse Ox O2 Delivery O2 Flow Rate FiO2 08/21/19 16:00 97.5 64 17 145/66 (92) 97 Room Air I&O- Last 24 Hours up to 6 AM 08/21/19 06:00 Intake Total 1560 ml Output Total 2375 ml Balance -815 ml Laboratory Data 24H LABS Laboratory Tests 2 08/21/19 05:44: Nucleated Red Blood Cells % (auto) 0.0, Anion Gap 5L, Glomerular Filtration Rate > 60.0, Calcium Level 8.4L, Phosphorus Level 2.9, Magnesium Level 2.0, Total Bilirubin 0.4, Aspartate Amino Transf (AST/SGOT) 31, Alanine Aminotransferase (ALT/SGPT) 57, Alkaline Phosphatase 114, Total Protein 7.6, Albumin 2.7L, Albumin/Globulin Ratio 0.55L CBC/BMP Laboratory Tests 08/21/19 05:44 Microbiology Microbiology 08/20/19 Respiratory Virus Panel (PCR) ([facility]) - Final, Complete 08/19/19 - Final, Complete 08/19/19 Fungal Smear, Received Pending 08/19/19 Fungal Culture, Received Pending 08/19/19 Viral Culture, Received Pending 08/19/19 Gram Stain - Final, Complete 08/19/19 CSF Culture - Final, Complete AMANDA ALCARAZ MD Aug 21, 2019 17:39
[2019-08-21] MEDS: **NOTE PATIENT COMMENT** MISC XX SCH (21:30)
[2019-08-22] VITALS (13 sets, daily range): BP systolic 131; BP diastolic 62; O2SAT 98–100
[2019-08-22 08:06] LABS: ANA (HEP2) Negative (.); ANTI HU ANTIBODY <1:10 titer (.); COPPER PLASMA 89 ug/dL (72-166); Lyme Disease IgG Ab 18 kDa Ban Present (.); Lyme Disease IgG Ab 23 kDa Ban Present (.); Lyme Disease IgG Ab 28 kDa Ban Absent (.); Lyme Disease IgG Ab 30 kDa Ban Absent (.); Lyme Disease IgG Ab 39 kDa Ban Absent (.); Lyme Disease IgG Ab 41 kDa Ban Present (.); Lyme Disease IgG Ab 45 kDa Ban Absent (.); Lyme Disease IgG Ab 58 kDa Ban Absent (.); Lyme Disease IgG Ab 66 kDa Ban Absent (.); Lyme Disease IgG Ab 93 kDa Ban Present (.); Lyme Disease IgG West Blot Int Negative (.); Lyme Disease IgG/IgM Antibodie 1.02 ISR (0.00-0.90); Lyme Disease IgM Ab 23 kDa Ban Absent (.); Lyme Disease IgM Ab 39 kDa Ban Absent (.); Lyme Disease IgM Ab 41 kDa Ban Absent (.); Lyme Disease IgM Ab Quantitati <0.80 index (0.00-0.79); Lyme Disease IgM West Blot Int Negative (.); SSA SJOGRENS A 1.3 AI (0.0-0.9); SSB SJOGRENS B <0.2 AI (0.0-0.9)
[2019-08-22] MEDS: LIDOCAINE 5% (LIDODERM) PATCH TD SCH (09:39)
[2019-08-22] MEDS: ENOXAPARIN 40 MG/0.4 ML SYRINGE (J1650) SC SCH (09:40)
[2019-08-22] MEDS: methylPREDNISolone 1,000 MG, VIAL MATE ADAPTER 1 EACH in D5W 250 ML IV SCH (09:40)
[2019-08-22] MEDS: GABAPENTIN 100 MG CAP PO SCH ×2 (09:40→16:22)
[2019-08-22] MEDS: PREGABALIN 75 MG CAP(LYRICA) PO SCH (09:40)
[2019-08-22] MEDS: DOCUSATE SODIUM 100 MG CAP PO SCH (09:40)
[2019-08-22] MEDS ORDERED: DOCU100C16 PO (12:09)
[2019-08-22] MEDS ORDERED: GABA-1171 PO (12:09)
--- NOTE | 2019-08-22 15:38 | RO ---
DATE OF PROCEDURE: 08/16/2019 PREPROCEDURE DIAGNOSIS: Rule out Guillain-[place] syndrome. POSTPROCEDURE DIAGNOSIS: PROCEDURE: Lumbar puncture. SURGEON/ATTENDING: Jessy Meléndez MD EMERGENCY PHYSICIAN: Aleja Cano MD ANESTHESIA: CONSENT: Consented was obtained prior to the procedure. Indications, risks and benefits were explained at length. The patient agreed to the procedure. DESCRIPTION OF PROCEDURE: A time-out was performed, procedure was done in sterile fashion with sterile gloves, sterile gown. The patient was positioned in the left lateral decubitus position, area was marked and cleaned with iodine. The patient was cleansed and draped in the usual sterile fashion. Anesthesia was achieved with 1% lidocaine. A 20-gauge 3.5 inch spinal needle was placed into the L5-S1 lumbar interspace; after several attempts, blood was the only return from the spinal needle. Proceduralist was unable to obtain opening pressure as no cerebral spinal fluid (CSF) was returned. Hemostasis was achieved in the area. No specimens were taken from the procedure, and the patient was cleaned. The patient did not complain of any pain or any headaches after the procedure, but he was advised that this would be a possibility. Estimated blood loss was 5 mL. MTDD
--- NOTE | 2019-08-22 16:47 | REPVR ---
PROCEDURE INFORMATION: Exam: MR Head Without and With Contrast Exam date and time: 08/22/2019 3:47 PM Age: 24 years old Clinical indication: Condition or disease; Prior surgery; Surgery date: 6+ months; Patient HX: Paraplegia, prior dx of transverse myelitis; Additional info: Paraplegia, adem TECHNIQUE: Imaging protocol: MR of the head without and with intravenous contrast. Contrast material: PROHANCE; Contrast volume: 13 ml; Contrast route: 22G ANGIO; COMPARISON: No relevant prior studies available. FINDINGS: Brain: There is no acute intracranial hemorrhage, cerebral edema, or midline shift. No restricted diffusion is present to suggest acute infarction. No enhancing lesions were identified after the administration of contrast. Ventricles: There is an incidental cyst of the velum interpositum or cavum vergae, measuring 3.5 x 3.3 x 2.0 cm. There is no hydrocephalus. Bones/joints: Unremarkable. Soft tissues: Unremarkable. Sinuses: Normal as visualized. No acute sinusitis. Mastoid air cells: Normal as visualized. No mastoid effusion. Orbits: Unremarkable. IMPRESSION: 1. No acute intracranial abnormality 2. Incidental cyst of the velum interpositum or cavum vergae, measuring 3.5 x 3.3 x 2.0 cm. Electronically signed by: Mohamud Greene On 08/22/2019 16:47:26 PM
--- NOTE | 2019-08-22 17:03 | IPNPDOC ---
Date Seen The patient was seen on 08/22/19. Progress Note SUBJECTIVE: Patient is a 24 year old male with no significant past medical history and was admitted due to symptoms concerning for Guillain-[place] Syndrome. MRI of the cervical, thoracic & lumbar spine shows diffusely abnormal T2 hyperintense signal throughout the spinal cord consistent with transverse myelitis. He was treated with three days of IVIG for three days which ended on 08/18 and continues on Solu-medrol 1000 mg/day. He continues to have near complete paralysis of b/l lower extremities with numbness & pain. Patient states no acute changes or events overnight and that he did not vomit from the steroids as he had previously. He remains hopeful and optimistic. Patient remains unable to move b/l lower extremities except for minimal movement in the toes, decreased sensation in b/l LE up to the groin, no sensory or motor deficits appreciated proximal to the groin. Patient denies blurry vision, changes in vision, fever, night sweats, nausea, vomiting, dysphagia, chest pain, shortness of breath, and abdominal pain. OBJECTIVE PHYSICAL EXAMINATION: VITAL SIGNS: Please see below. GENERAL: No acute distress, patient is anxious. HEENT: Normocephalic, atraumatic, moist mucous membranes CARDIOVASCULAR EXAMINATION: Regular rate and rhythm, Normal S1 and S2, no murmurs appreciated. RESPIRATORY EXAMINATION: Clear to auscultation, no wheezing ABDOMINAL EXAMINATION: Soft, nontender, nondistended, positive bowel sounds EXTREMITIES: no edema SKIN: No rash NEUROLOGICAL EXAMINATION: Alert and oriented 3, unable to move b/l LE except for minimal movement in the toes, decreased sensation in b/l LE up to the groin, no sensory or motor deficits appreciated proximal to the groin PSYCHIATRIC EXAMINATION: Patient is attempting to remain positive. He is optimistic with the improvements he has made. Monitor for depression. LABORATORY DATA, IMAGING STUDIES, MICROBIOLOGY: Please see below. ASSESSMENT AND PLAN: This is a 24 year old male with no significant past medical history who was admitted due to symptoms concerning for Guillain-[place] Syndrome. MRI of the cervical, thoracic & lumbar spine shows diffusely abnormal T2 hyperintense signal throughout the spinal cord consistent with transverse myelitis. He was treated with three days of IVIG for three days which ended on 08/18 and continues on Solu-medrol 1000 mg/day. He continues to have near complete paralysis of b/l LE with numbness & pain. PROBLEMS: 1. Longitudinally extensive transverse myelitis: Unknown etiology, workup has been negative to date, completed IVIG 2 g per kilogram over 3 days with end date of 08/18. Continue Solu-Medrol 1 g daily for 10 days, then a two week taper- there is no indication to begin PCP prophylaxis. Lyme serology was reviewed and most likely false positive. GME ATTESTATION My faculty preceptor for this patient encounter was physically present during the encounter and was fully available. All aspects of the patient interview, examination, medical decision making process, and medical care plan development were reviewed and approved by the faculty preceptor. The faculty preceptor is aware and concurs with the plan as stated in the body of this note and will attest to such by his/her cosignature. VS, I&O, 24H, Fishbone Vital Signs/I&O Vital Signs Date Time Temp Pulse Resp B/P (MAP) Pulse Ox O2 Delivery O2 Flow Rate FiO2 08/22/19 12:00 99 Room Air 08/22/19 12:00 97.5 74 18 131/62 (85) I&O- Last 24 Hours up to 6 AM 08/22/19 06:00 Intake Total 1980 ml Output Total 2450 ml Balance -470 ml Laboratory Data Microbiology Microbiology 08/20/19 Respiratory Virus Panel (PCR) ([facility]) - Final, Complete 08/19/19 - Final, Complete 08/19/19 Fungal Smear, Received Pending 08/19/19 Fungal Culture, Received Pending 08/19/19 Viral Culture, Received Pending 08/19/19 Gram Stain - Final, Complete 08/19/19 CSF Culture - Final, Complete ANDREA FERRERA OMS-IV Aug 22, 2019 16:49
--- NOTE | 2019-08-22 18:02 | DS.PDOC ---
Discharge Summary General Date of Admission Aug 16, 2019 at 02:50 Date of Discharge 08/22/19 Attending Physician: AMANDA ALCARAZ MD Discharge Summary PROCEDURES PERFORMED DURING STAY: None. ADMITTING DIAGNOSES: 1. Longitudinally extensive transverse myelitis. DISCHARGE DIAGNOSES: 1. Longitudinally extensive transverse myelitis. COMPLICATIONS/CHIEF COMPLAINT: Longitudinally extensive transverse myelitis HISTORY OF PRESENT ILLNESS: 24-year-old male with no significant past medical history was admitted with bilateral lower extremity paralysis and sensory deficits. Imaging of the spinal column is consistent with longitudinally extensive transverse myelitis, workup has been negative to date. Patient has been treated with IVIG and high-dose IV steroids, completed 7 days of steroids, will receive the remaining 3 doses on acute rehabilitation unit. Patient has been evaluated by infectious disease and neurology, no further recommendations at this time. [facility] was contacted for transfer and possible plasmapheresis, neurologist at [facility] recommends that there is no need for plasmapheresis and transfer at this time, advises her to continue aggressive physical therapy at this time. Patient was evaluated by PT and acute rehabilitation unit was recommended. Patient is clinically and hemodynamically stable for discharge to acute rehabilitation unit. HOSPITAL COURSE: As above. DISCHARGE MEDICATIONS: Please see below. ALLERGIES: Please see below. PHYSICAL EXAMINATION: VITAL SIGNS: Please see below. GENERAL: No distress HEENT: Normocephalic, atraumatic, moist mucous membranes NECK: Supple CARDIOVASCULAR EXAMINATION: S1, S2, no murmurs RESPIRATORY EXAMINATION: Clear to auscultation, no wheezing ABDOMINAL EXAMINATION: Soft, nontender, nondistended, positive bowel sounds EXTREMITIES: no edema SKIN: No rash NEUROLOGICAL EXAMINATION: Alert and oriented 3, patient has slight improvement in bilateral lower extremity strength, no changes to sensory deficits. PSYCHIATRIC EXAMINATION: anxious LABORATORY DATA: Please see below. IMAGING: MRI of the cervical, thoracic and lumbar spine consistent with longitudinally extensive transverse myelitis PROGNOSIS: Guarded ACTIVITY: As tolerated. DIET: Regular DISCHARGE PLAN: Follow with neurology and PCP after discharge from acute rehabilitation unit DISPOSITION: 62 D/T Rehab Facility. DISCHARGE INSTRUCTIONS: 1. As above. DISCHARGE CONDITION: Stable. TIME SPENT ON DISCHARGE: Greater than 34 minutes. Vital Signs/I&Os Vital Signs Date Time Temp Pulse Resp B/P (MAP) Pulse Ox O2 Delivery O2 Flow Rate FiO2 08/22/19 12:00 99 Room Air 08/22/19 12:00 97.5 74 18 131/62 (85) I&O- Last 24 Hours up to 6 AM 08/22/19 06:00 Intake Total 1980 ml Output Total 2450 ml Balance -470 ml Microbiology Microbiology 08/20/19 Respiratory Virus Panel (PCR) ([facility]) - Final, Complete 08/19/19 - Final, Complete 08/19/19 Fungal Smear, Received Pending 08/19/19 Fungal Culture, Received Pending 08/19/19 Viral Culture, Received Pending 08/19/19 Gram Stain - Final, Complete 08/19/19 CSF Culture - Final, Complete Discharge Medications Scheduled Docusate Sodium (Docusate Sodium) 100 Mg Capsule, 100 MG PO BID Gabapentin (Gabapentin) 100 Mg Capsule, 100 MG PO TID Allergies Coded Allergies: No Known Allergies (Unverified , 03/20/18) AMANDA ALCARAZ MD Aug 22, 2019 18:02
[2019-08-24 00:06] LABS: IMMUNOGLOBULIN G CSF 4.9 mg/dL (0.0-8.6)
== END 2019-08-22 16:50 | DRG 40 ==
LOC: EDBD 22:49 → M ED 22:49 → M ED INP 08-16 02:50 → ENRESERV 08-16 03:19 → M ICU 08-16 04:32 → M PCU 08-18 14:23
PROVIDERS: ADMIT Internal Medicine; ATTEND Internal Medicine
PROC: 009U3ZX Drainage of Spinal Canal, Percutaneous Approach, Diagnostic (ICD-10-PCS; principal; 2019-08-16)
DX: G37.3 Acute transverse myelitis in demyelinating disease of central nervous system (principal); G61.0 Guillain-Barre syndrome; M51.37 Other intervertebral disc degeneration, lumbosacral region; E88.2 Lipomatosis, not elsewhere classified; R00.1 Bradycardia, unspecified; R33.9 Retention of urine, unspecified; Z79.899 Other long term (current) drug therapy; G82.20 Paraplegia, unspecified

== ENCOUNTER 2019-08-22 13:00 | Inpatient (IN) | payer OTHER ==
[~2019-08-22] VITALS: Ht 182.9 cm; Wt 66.8 kg
[~2019-08-22 13:00] MED LIST changes: +CIPR500T3 PO; +DOCU100C16 PO; +GABA-1171 PO; +IBUP-1720 PO
--- NOTE | 2019-08-22 14:32 | HPEPDOC ---
[employer] Instructor Note DATE OF ADMISSION: 08-22-19 DATE OF SERVICE: 08-22-19 TIME OF ADMISSION: Please refer to physician's admission order. SOURCE OF ADMISSION INFORMATION: [facility] record and patient CHIEF COMPLAINT: Spinal cord injury in setting of transverse myelitis HISTORY OF PRESENT ILLNESS: 24M no significant pmh who following a URI mid-July for which he took doxycycline developed bilateral lower extremity weakness with paresthesias that ascended to his abdomen ad chest with urinary retention, admitted to 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 Thoracic and Cervical MRI showed T2 hyperintense signals throughout the spinal cord from C3 to the lumbar region with cauda equine enhancement. There was new concern that his condition was due to transverse myelitis for which he was started on IV steroids. Infectious disease was consulted, CSF PCR for meningitis/encephalitis panel was negative, Mycoplasma work-up was negative for active infection, and Lyme disease ruled out. 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 He was evaluated by therapy, found to have impairments in mobility and ADLs and deemed medically appropriate for discharge to ARU on 08-22-19. REVIEW OF SYSTEMS: The following is a completed review of systems and has been reviewed. Review of systems otherwise unremarkable. PAIN: Patient self reports no pain EYES: No recent vision changes EARS, NOSE, & THROAT: No throat pain, or dysphagia, or rhinorrhea CARDIOVASCULAR: Denies chest pain or palpitations PULMONARY: Denies shortness of breath GASTROINTESTINAL: +fecal retention GENITOURINARY: +urinary retention MUSCULOSKELETAL: weakness in all 4 limbs NEUROLOGICAL:+ paresthesias HEMATOLOGICAL: denies easy bruising SKIN: denies rash PSYCHIATRIC: Unremarkable All other review of systems found to be negative. PAST MEDICAL HISTORY: none PAST SURGICAL HISTORY: hand surgery ALLERGIES: Please see below. MEDICATIONS: Please see below. FAMILY HISTORY: CAD SOCIAL HISTORY: no smoking, +Marijuana, no etoh DIET: regular PHYSICAL EXAMINATION: VITAL SIGNS: Please see below. GENERAL: Pleasant and cooperative. No acute distress. HEENT: PERRL. Extraocular movements intact. Clear conjunctiva CARDIOVASCULAR: Regular rate and rhythm. No murmurs, rubs, or gallops LUNGS: Clear to auscultation bilaterally. No wheezes. No rhonchi ABDOMEN: Soft, nontender, nondistended. Positive bowel sounds. Normal active bowel sounds NEUROLOGICAL: Alert and oriented times three. Cranial nerves II through XII grossly intact. sensation intact to light touch and pinprick C2-C3, otherwise altered/diminished caudally (-) babinksi bilat MSK: 5/5 bilat UE, right LE 2/5 HF/KE/ankle DF/EHL and 3/5 PF- left LE 3/5 HF/KE/Ankle DF, EH, 4/5 PF -+able to feel deep anal pressure, no voluntary anal contraction, +intact sphincter tone CELESTINE Spinal Cord exam- C3 Motor Incomplete CELESTINE D SKIN: no rash LABORATORY DATA: Please see below. IMAGING:Imaging documentation personally reviewed by record FUNCTIONAL STATUS: Premorbid: Independent with all activities of daily life as well as mobility On Admission: Min-Maximum assistance for bed mobility, upper body dressing, bed chair and wheelchair transfers, toilet transfers, ambulation. GOALS: Independent from wheelchair level for mobility, functional transfers, dressing, bathing, toileting ASSESSMENT:24-year-old M with no significant past medical history who presents status post acute transverse myelitis with spinal cord injury PLAN: 1. Rehab- PT advance transfers, strengthen/stretch/maintain ROM bilat LE- multipodus boots while in bed OT- advance ADL management, bed mobility, dressing, bathing, shoulder protection exercises 2. Neuro: recently diagnosed transverse myelitis extending from C3 to lumbar region, patient with incomplete quadriplegia-C3 Motor Incomplete CELESTINE D -monitor for decline in function, will consult neurology prn -s/p IVIG, c/u IV Solumedrol for a total of 10 days since initiated on inpatient to be followed by slow oral taper- on Bactrim for PCP ppx while on steroids -monitor for autonomic dysreflexia 3. cardiac: no known Hx, patient with bradycardia likely due to active lifestyle 4. resp: encourage incentive spirometry, monitor for infection 5. GI: neurogenic bowel, will require daily bowel regimen, colace/senna/suppository +digital stimulation to trigger recto-colic reflex -protonix for ppx 6. DVT ppx: Lovenox and TEDs 7. : c/u [facility] will teach how to self-cath next week per patient's request 8. Skin: turn q2 while in bed, barrier cream to sacrum, educate patient on weight shifting every 30 minutes while seated, offload heels 9. Pain: c/u tylenol prn, gabapentin 100mg TID and Lyrica 75mg BID for paresthesias 10. Dispo: TBD POST ADMISSION PHYSICIAN EVALUATION: Medical and functional status: Description of medical status, medical assessment: As above. Rehabilitation diagnosis and current and prior cold morbid medical conditions as above. Risk of complications and plans to mitigate them as above. Description of functional status current status is as above. Prior status as above. Status compared to preadmission: There are no clinically significant differences between the patient's current status and the information described on the preadmission screening document. Treatment plan anticipated: Treatment plan is as described above. Required disciplines including physical therapy, occupational therapy, others as noted above. Intensity of services: 3 hours a day, 6 days a week. Special considerations: There are no specific special or safety considerations that would likely preclude immediate implementation of an intensive rehabilitation program or subsequently influence the plan of care ATTESTATION: Considering all the information above, it is my best judgment that this patient requires intensive rehabilitation therapy as described above and an inpatient hospital environment due to the complexity of nursing, medical, and rehabilitation needs required by the patient. Furthermore, this patient can reasonably be expected to participate in an benefit from an inpatient rehabilitation stay with an interdisciplinary team approach to the delivery of rehabilitation care under the direction and supervision of rehabilitation physician PROGNOSIS: Good ESTIMATED LENGTH OF STAY:28-30 days. PROJECTED DISCHARGE DESTINATION: Home with family support and any durable medical equipment required to increase functional safety and mobility. TIME SPENT COUNSELING AND COORDINATING INITIAL CARE: Greater than 70 minutes. Vital Signs Vital Signs Date Time Temp Pulse Resp B/P (MAP) Pulse Ox O2 Delivery O2 Flow Rate FiO2 08/22/19 17:10 18 Room Air 08/22/19 17:20 98.2 68 147/65 (92) 97 Home Medications Scheduled Docusate Sodium (Docusate Sodium) 100 Mg Capsule, 100 MG PO BID Gabapentin (Gabapentin) 100 Mg Capsule, 100 MG PO TID Allergies Coded Allergies: No Known Allergies (Unverified , 03/20/18) A-FIB/CHADSVASC A-FIB History Current/History of A-Fib/PAF?: No NIKKI BUENROSTRO MD Aug 22, 2019 14:32
[2019-08-22] MEDS ORDERED: SENNA 8.6 MG TAB (SENOKOT) PO SCH (14:45)
[2019-08-22] MEDS: REMEDY PHYTOPLEX Z-GUARD PASTE 113GM TUBE (FROM STOREROOM PRODUCT) TOP SCH ×2 (16:00→20:44)
[2019-08-22 17:20] VITALS: BP 147/65
[2019-08-22] MEDS: DOCUSATE SODIUM 100 MG CAP PO SCH ×2 (18:13→20:44)
[2019-08-22 20:00] VITALS: BP 141/70
[2019-08-22] MEDS: BISACODYL 10 MG SUPP PR SCH (20:44)
[2019-08-23] MEDS: ACETAMINOPHEN TAB 650MG DOSE (2X325MG) PO PRN (00:53)
[2019-08-23 06:00] VITALS: BP 115/66
[2019-08-23 07:11] LABS: BASO % 0.2 % (0.0-1.0); HEMATOCRIT 35.9 % (42.0-52.0); HEMOGLOBIN 12.4 g/dl (13.5-17.5); LYMPH # 2.4 10^3/uL (1.5-5.0); LYMPH % 15.6 % (24.0-44.0); MEAN CORPUSCULAR HEMOGLOBIN 30.1 pg (27.0-33.0); MEAN CORPUSCULAR HGB CONC 34.5 g/dl (32.0-36.5); MEAN CORPUSCULAR VOLUME 87.1 fl (80.0-96.0); MONO # 1.9 10^3/uL (0.0-0.8); MONO % 12.5 % (0.0-5.0); NEUTROPHILS # 10.5 10^3/uL (1.5-8.5); NEUTROPHILS % 69.6 % (36.0-66.0); PLATELET COUNT, AUTOMATED 280 10^3/uL (150-450); RED BLOOD COUNT 4.12 10^6/uL (4.30-6.10); WHITE BLOOD COUNT 15.1 10^3/uL (4.0-10.0)
[2019-08-23 07:43] LABS: ALBUMIN 2.9 GM/DL (3.2-5.2); ALT/SGPT 112 U/L (12-78); BILIRUBIN,TOTAL 0.4 MG/DL (0.2-1.0); BLOOD UREA NITROGEN 22 MG/DL (7-18); CALCIUM LEVEL 8.5 MG/DL (8.5-10.1); CARBON DIOXIDE LEVEL 28 MEQ/L (21-32); CHLORIDE LEVEL 99 MEQ/L (98-107); CREATININE FOR GFR 0.78 MG/DL (0.70-1.30); GLOMERULAR FILTRATION RATE > 60.0 (>60); GLUCOSE, FASTING 96 MG/DL (70-100); POTASSIUM SERUM 3.9 MEQ/L (3.5-5.1); SODIUM LEVEL 133 MEQ/L (136-145); TOTAL PROTEIN 7.6 GM/DL (6.4-8.2)
[2019-08-23] MEDS: REMEDY PHYTOPLEX Z-GUARD PASTE 113GM TUBE (FROM STOREROOM PRODUCT) TOP SCH ×3 (09:00→19:48)
[2019-08-23] MEDS: PANTOPRAZOLE 40MG TAB (PROTONIX) PO SCH (09:01)
[2019-08-23] MEDS: ENOXAPARIN 40 MG/0.4 ML SYRINGE (J1650) SC SCH (09:01)
[2019-08-23] MEDS: BACTRIM 160MG/800MG DS TAB PO SCH (09:01)
[2019-08-23] MEDS: DOCUSATE SODIUM 100 MG CAP PO SCH ×3 (09:01→19:46)
[2019-08-23] MEDS: methylPREDNISolone 1,000 MG, VIAL MATE ADAPTER 1 EACH in D5W 250 ML IV SCH (09:01)
[2019-08-23 14:00] VITALS: BP 137/57
--- NOTE | 2019-08-23 17:32 | REPVR ---
PROCEDURE INFORMATION: Exam: US Duplex Lower Extremity Veins Exam date and time: 08/23/2019 5:04 PM Age: 24 years old Clinical indication: Swelling (edema) of limb; Lower extremity, bilateral; Additional info: Immobility- sci TECHNIQUE: Imaging protocol: Real-time duplex ultrasound of the Lower Extremities with 2-D gramajo scale, color Doppler flow and spectral waveform analysis with image documentation. Complete exam focused on the bilateral lower extremity veins. COMPARISON: No relevant prior studies available. FINDINGS: Right deep veins: Unremarkable. The common femoral, femoral, proximal profunda femoral, popliteal and posterior tibial veins are patent without thrombus. Normal Doppler waveforms. Normal compressibility and/or augmentation response. Right superficial veins: Saphenofemoral junction is patent without thrombus. Left deep veins: Unremarkable. The common femoral, femoral, proximal profunda femoral, popliteal and posterior tibial veins are patent without thrombus. Normal Doppler waveforms. Normal compressibility and/or augmentation response. Left superficial veins: Saphenofemoral junction is patent without thrombus. Soft tissues: Unremarkable. IMPRESSION: No sonographic evidence of deep vein thrombosis. Electronically signed by: Corey Riley On 08/23/2019 17:31:51 PM
--- NOTE | 2019-08-23 17:48 | IPNPDOC ---
Date Seen The patient was seen on 08/23/19. Progress Note SUBJECTIVE: 24-year-old male witha history of past medical history was initially admitted to the hospital for longitudinally extensive transverse myelitis, treated with IVIG and high-dose IV steroids. He was evaluated by physical therapy and transferred to acute rehabilitation unit for further therapy. Patient is completed 7 days of IV steroids, has 3 days remaining. He has had some improvement in lower extremity weakness, otherwise remains unchanged. He is comfortable in chair, eating lunch, without any complaints at this time. He denies any shortness of breath, chest pain, nausea, vomiting, abdominal pain or diarrhea. 10 point review of system is negative except for above PHYSICAL EXAMINATION: VITAL SIGNS: Please see below. GENERAL: No distress HEENT: Normocephalic, atraumatic, moist mucous membranes NECK: Supple CARDIOVASCULAR EXAMINATION: S1, S2, no murmurs RESPIRATORY EXAMINATION: Clear to auscultation, no wheezing ABDOMINAL EXAMINATION: Soft, nontender, nondistended, positive bowel sounds EXTREMITIES: No edema SKIN: No rash NEUROLOGICAL EXAMINATION: Alert and oriented 3, bilateral lower extremity strength has improved to 1/5, sensory deficits in the lower shortness remained unchanged, no other sensory or motor deficits appreciated. PSYCHIATRIC EXAMINATION: Calm and cooperative LABORATORY DATA, IMAGING STUDIES, MICROBIOLOGY: Please see below. ASSESSMENT AND PLAN: 24-year-old male who was initially admitted for longitudinally extensive transverse myelitis now admitted to acute rehabilitation unit for further therapy. PROBLEMS: 1. Longitudinally extensive transverse myelitis: Workup negative to date, status post treatment with IVIG, currently on Solu-Medrol 1 g per day, 3 days remaining, continue extensive physical therapy. Was evaluated by neurology and infectious disease when admitted to the hospital. 2. Physical debilitation: From above, continue extensive physical therapy as per primary team. VS, I&O, 24H, Fishbone Vital Signs/I&O Vital Signs Date Time Temp Pulse Resp B/P (MAP) Pulse Ox O2 Delivery O2 Flow Rate FiO2 08/23/19 14:00 97.8 58 18 137/57 (83) 100 Room Air I&O- Last 24 Hours up to 6 AM 08/23/19 06:00 Intake Total 1140 ml Output Total 1600 ml Balance -460 ml Laboratory Data 24H LABS Laboratory Tests 2 08/23/19 06:53: Immature Granulocyte % (Auto) 2.1, Neutrophils (%) (Auto) 69.6H, Lymphocytes (%) (Auto) 15.6L, Monocytes (%) (Auto) 12.5H, Eosinophils (%) (Auto) 0.0, Basophils (%) (Auto) 0.2, Neutrophils # (Auto) 10.5H, Lymphocytes # (Auto) 2.4, Monocytes # (Auto) 1.9H, Eosinophils # (Auto) 0.0, Basophils # (Auto) 0.0, Nucleated Red Blood Cells % (auto) 0.0, Anion Gap 6L, Glomerular Filtration Rate > 60.0, Calcium Level 8.5, Total Bilirubin 0.4, Aspartate Amino Transf (AST/SGOT) 39H, Alanine Aminotransferase (ALT/SGPT) 112H, Alkaline Phosphatase 70, Total Protein 7.6, Albumin 2.9L, Albumin/Globulin Ratio 0.62L CBC/BMP Laboratory Tests 08/23/19 06:53 AMANDA ALCARAZ MD Aug 23, 2019 17:48
[2019-08-23] MEDS: BISACODYL 10 MG SUPP PR SCH (19:46)
[2019-08-23 20:00] VITALS: BP 159/70
[2019-08-24 06:00] VITALS: BP 125/59
[2019-08-24] MEDS: REMEDY PHYTOPLEX Z-GUARD PASTE 113GM TUBE (FROM STOREROOM PRODUCT) TOP SCH ×3 (09:00→20:10)
[2019-08-24] MEDS: methylPREDNISolone 1,000 MG, VIAL MATE ADAPTER 1 EACH in D5W 250 ML IV SCH (09:07)
[2019-08-24] MEDS: ENOXAPARIN 40 MG/0.4 ML SYRINGE (J1650) SC SCH (09:07)
[2019-08-24] MEDS: PANTOPRAZOLE 40MG TAB (PROTONIX) PO SCH (09:07)
[2019-08-24] MEDS: DOCUSATE SODIUM 100 MG CAP PO SCH ×3 (09:07→20:08)
[2019-08-24] MEDS: SENNA 8.6 MG TAB (SENOKOT) PO SCH (12:00)
[2019-08-24 14:00] VITALS: BP 132/60
[2019-08-24] MEDS: BISACODYL 10 MG SUPP PR SCH (14:22)
[2019-08-24 20:00] VITALS: BP 142/74
[2019-08-24] MEDS: SENNA 8.6 MG TAB (SENOKOT) PO PRN (20:08)
[2019-08-25 06:00] VITALS: BP 113/58
[2019-08-25 07:48] LABS: HEMATOCRIT 35.8 % (42.0-52.0); HEMOGLOBIN 12.4 g/dl (13.5-17.5); MEAN CORPUSCULAR HEMOGLOBIN 30.3 pg (27.0-33.0); MEAN CORPUSCULAR HGB CONC 34.6 g/dl (32.0-36.5); MEAN CORPUSCULAR VOLUME 87.5 fl (80.0-96.0); PLATELET COUNT, AUTOMATED 339 10^3/uL (150-450); RED BLOOD COUNT 4.09 10^6/uL (4.30-6.10); WHITE BLOOD COUNT 18.8 10^3/uL (4.0-10.0)
[2019-08-25 08:05] LABS: BLOOD UREA NITROGEN 23 MG/DL (7-18); CALCIUM LEVEL 8.4 MG/DL (8.5-10.1); CARBON DIOXIDE LEVEL 29 MEQ/L (21-32); CHLORIDE LEVEL 101 MEQ/L (98-107); CREATININE FOR GFR 0.76 MG/DL (0.70-1.30); GLOMERULAR FILTRATION RATE > 60.0 (>60); GLUCOSE, FASTING 84 MG/DL (70-100); POTASSIUM SERUM 4.2 MEQ/L (3.5-5.1); SODIUM LEVEL 136 MEQ/L (136-145)
[2019-08-25] MEDS: REMEDY PHYTOPLEX Z-GUARD PASTE 113GM TUBE (FROM STOREROOM PRODUCT) TOP SCH ×3 (09:00→20:28)
[2019-08-25] MEDS: DOCUSATE SODIUM 100 MG CAP PO SCH ×3 (09:58→20:27)
[2019-08-25] MEDS: PANTOPRAZOLE 40MG TAB (PROTONIX) PO SCH (09:58)
[2019-08-25] MEDS: methylPREDNISolone 1,000 MG, VIAL MATE ADAPTER 1 EACH in D5W 250 ML IV SCH (09:59)
[2019-08-25] MEDS: ENOXAPARIN 40 MG/0.4 ML SYRINGE (J1650) SC SCH (09:59)
[2019-08-25] MEDS: BISACODYL 10 MG SUPP PR SCH (10:30)
[2019-08-25] MEDS: SENNA 8.6 MG TAB (SENOKOT) PO SCH (12:00)
[2019-08-25 14:00] VITALS: BP 128/56
[2019-08-25 20:00] VITALS: BP 130/59
[2019-08-25] MEDS: SENNA 8.6 MG TAB (SENOKOT) PO PRN (20:27)
[2019-08-25] MEDS: ACETAMINOPHEN TAB 650MG DOSE (2X325MG) PO PRN (20:27)
[2019-08-26 06:00] VITALS: BP 123/56
[2019-08-26] MEDS: predniSONE 20 MG TAB PO SCH (08:23)
[2019-08-26] MEDS: ENOXAPARIN 40 MG/0.4 ML SYRINGE (J1650) SC SCH (08:24)
[2019-08-26] MEDS: DOCUSATE SODIUM 100 MG CAP PO SCH ×3 (08:24→20:56)
[2019-08-26] MEDS: PANTOPRAZOLE 40MG TAB (PROTONIX) PO SCH (08:24)
[2019-08-26] MEDS: REMEDY PHYTOPLEX Z-GUARD PASTE 113GM TUBE (FROM STOREROOM PRODUCT) TOP SCH ×3 (08:24→21:00)
[2019-08-26] MEDS: BACTRIM 160MG/800MG DS TAB PO SCH (08:24)
[2019-08-26] MEDS ORDERED: predniSONE 20 MG TAB PO SCH (09:00)
--- NOTE | 2019-08-26 11:43 | IPNPDOC ---
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 REVIEW OF SYSTEMS: The following is a completed review of systems and has been reviewed. Review of systems otherwise unremarkable. PAIN: Patient self reports no pain EYES: No recent vision changes EARS, NOSE, & THROAT: No throat pain, or dysphagia, or rhinorrhea CARDIOVASCULAR: Denies chest pain or palpitations PULMONARY: Denies shortness of breath GASTROINTESTINAL: +fecal retention GENITOURINARY: +urinary retention MUSCULOSKELETAL: weakness in all 4 limbs NEUROLOGICAL:+ paresthesias HEMATOLOGICAL: denies easy bruising SKIN: denies rash PSYCHIATRIC: Unremarkable All other review of systems found to be negative. PHYSICAL EXAMINATION: VITAL SIGNS: Please see below. GENERAL: Pleasant and cooperative. No acute distress. HEENT: PERRL. Extraocular movements intact. Clear conjunctiva CARDIOVASCULAR: Regular rate and rhythm. No murmurs, rubs, or gallops LUNGS: Clear to auscultation bilaterally. No wheezes. No rhonchi ABDOMEN: Soft, nontender, nondistended. Positive bowel sounds. Normal active bowel sounds NEUROLOGICAL: Alert and oriented times three. Cranial nerves II through XII grossly intact. sensation intact to light touch and pinprick C2-C3, otherwise altered/diminished caudally (-) babinksi bilat MSK: 5/5 bilat UE, right LE 2/5 HF/KE/ankle DF/EHL and 3/5 PF- left LE 3/5 HF/KE/Ankle DF, EH, 4/5 PF -+able to feel deep anal pressure, no voluntary anal contraction, +intact sphincter tone CELESTINE Spinal Cord exam- C3 Motor Incomplete CELESTINE D SKIN: no rash ASSESSMENT:24-year-old M with no significant past medical history who presents status post acute transverse myelitis with spinal cord injury PLAN: 1. Rehab- PT advance transfers, strengthen/stretch/maintain ROM bilat LE- multipodus boots while in bed OT- advance ADL management, bed mobility, dressing, bathing, shoulder protection exercises 2. Neuro: recently diagnosed transverse myelitis extending from C3 to lumbar region, patient with incomplete quadriplegia-C3 Motor Incomplete CELESTINE D -monitor for decline in function, will consult neurology prn -s/p IVIG, s/p IV Solumedrol for a total of 10 days since initiated on inpatient to be followed by slow oral taper- on Bactrim for PCP ppx while on steroids -monitor for autonomic dysreflexia -leukocytosis likely due to steroids, afebrile 3. cardiac: no known Hx, patient with bradycardia likely due to active lifestyle 4. resp: encourage incentive spirometry, monitor for infection 5. GI: neurogenic bowel, c/u daily bowel regimen, colace/senna/suppository +digital stimulation to trigger recto-colic reflex -protonix for ppx 6. DVT ppx: Lovenox and TEDs 7. : will d/c Hsu today, instate Bladder scan protocol and teach how to self-cath 8. Skin: turn q2 while in bed, barrier cream to sacrum, educate patient on weight shifting every 30 minutes while seated, offload heels 9. Pain: c/u tylenol prn, gabapentin 100mg TID and Lyrica 75mg BID for paresthesias 10. ID: infectious work-up to date negative, however confirmatory labs for syphilis are pending- Dr. Elena following, recs appreciated 11. Dispo: TBD Allergies Coded Allergies: No Known Allergies (Unverified , 03/20/18) Vital Signs Vital Signs Date Time Temp Pulse Resp B/P (MAP) Pulse Ox O2 Delivery O2 Flow Rate FiO2 08/26/19 06:00 97.9 57 19 123/56 (78) 98 Room Air Current Medications Current Medications Current Medications Medications (Trade) Dose Ordered Sig/Rodrigo Route PRN Reason Start Time Stop Time Status Last Admin Dose Admin Acetaminophen (Tylenol Tab) 650 mg Q4HP PRN PO fever/ PAIN 08/22/19 14:45 08/25/19 20:27 Bisacodyl (Dulcolax Suppository) 10 mg QHS NC 08/22/19 21:00 08/25/19 10:30 Docusate Sodium (Colace) 100 mg TID PO 08/22/19 16:00 08/24/19 15:07 DC 08/24/19 09:07 Docusate Sodium (Colace) 200 mg TID PO 08/24/19 16:00 08/26/19 08:24 Enoxaparin Sodium (Lovenox) 40 mg DAILY SC 08/23/19 09:00 08/25/19 09:59 Methylprednisolone 1000 mg/IV Miscellaneous Supplies 1 each/ Dextrose 266 ml @ 266 mls/hr DAILY IV 08/23/19 09:00 08/25/19 09:59 DC 08/25/19 09:59 Pantoprazole Sodium (Protonix) 40 mg DAILY PO 08/23/19 09:00 08/26/19 08:24 Prednisone (Deltasone) 10 mg DAILY PO 09/30/19 09:00 10/06/19 09:01 Prednisone (Deltasone) 10 mg Q2D PO 10/07/19 09:00 Prednisone (Deltasone) 20 mg DAILY PO 08/26/19 09:00 08/23/19 09:22 DC Prednisone (Deltasone) 20 mg DAILY PO 09/23/19 09:00 09/29/19 09:01 Prednisone (Deltasone) 40 mg DAILY PO 09/16/19 09:00 09/22/19 09:01 Prednisone (Deltasone) 60 mg DAILY PO 09/09/19 09:00 09/15/19 09:01 Prednisone (Deltasone) 80 mg DAILY PO 09/02/19 09:00 09/08/19 09:01 Prednisone (Deltasone) 100 mg DAILY PO 08/26/19 09:00 09/01/19 09:01 08/26/19 08:23 Senna (Senokot) 1 tab ASDIRECTED PO 08/22/19 14:45 08/24/19 15:08 DC 08/22/19 18:13 Senna (Senokot) 1 tab DAILY@1200 PO 08/24/19 12:00 08/25/19 12:00 Senna (Senokot) 1 tab DAILYPRN PRN PO CONSTIPATION 08/24/19 15:15 08/25/19 20:27 Trimethoprim/ Sulfamethoxazole (Bactrim Ds, Septra Ds 160mg/ 800mg) 1 tab MoWeFr@09 PO 08/23/19 09:00 08/26/19 08:24 NIKKI BUENROSTRO MD Aug 26, 2019 11:43
[2019-08-26] MEDS ORDERED: LIDOCAINE 2% 5ML JELLY UROJET TOP PRN (11:45)
[2019-08-26] MEDS: SENNA 8.6 MG TAB (SENOKOT) PO SCH (12:01)
[2019-08-26 14:00] VITALS: BP 149/65
[2019-08-26 20:00] VITALS: BP 136/61
[2019-08-26] MEDS: ACETAMINOPHEN TAB 650MG DOSE (2X325MG) PO PRN (20:57)
[2019-08-26] MEDS: BISACODYL 10 MG SUPP PR SCH (21:00)
[2019-08-27 06:00] VITALS: BP 131/58
[2019-08-27] MEDS: DOCUSATE SODIUM 100 MG CAP PO SCH ×3 (08:21→20:58)
[2019-08-27] MEDS: PANTOPRAZOLE 40MG TAB (PROTONIX) PO SCH (08:21)
[2019-08-27] MEDS: predniSONE 20 MG TAB PO SCH (08:21)
[2019-08-27] MEDS: ENOXAPARIN 40 MG/0.4 ML SYRINGE (J1650) SC SCH (08:22)
[2019-08-27] MEDS: REMEDY PHYTOPLEX Z-GUARD PASTE 113GM TUBE (FROM STOREROOM PRODUCT) TOP SCH ×3 (08:27→20:59)
[2019-08-27] MEDS: SENNA 8.6 MG TAB (SENOKOT) PO SCH (12:08)
[2019-08-27 14:00] VITALS: BP 127/59
--- NOTE | 2019-08-27 14:38 | IPNPDOC ---
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 REVIEW OF SYSTEMS: The following is a completed review of systems and has been reviewed. Review of systems otherwise unremarkable. PAIN: Patient self reports no pain EYES: No recent vision changes EARS, NOSE, & THROAT: No throat pain, or dysphagia, or rhinorrhea CARDIOVASCULAR: Denies chest pain or palpitations PULMONARY: Denies shortness of breath GASTROINTESTINAL: +fecal retention (improving) GENITOURINARY: +urinary retention (improving) MUSCULOSKELETAL: weakness in all 4 limbs NEUROLOGICAL:+ paresthesias HEMATOLOGICAL: denies easy bruising SKIN: denies rash PSYCHIATRIC: Unremarkable All other review of systems found to be negative. PHYSICAL EXAMINATION: VITAL SIGNS: Please see below. GENERAL: Pleasant and cooperative. No acute distress. HEENT: PERRL. Extraocular movements intact. Clear conjunctiva CARDIOVASCULAR: Regular rate and rhythm. No murmurs, rubs, or gallops LUNGS: Clear to auscultation bilaterally. No wheezes. No rhonchi ABDOMEN: Soft, nontender, nondistended. Positive bowel sounds. Normal active bowel sounds NEUROLOGICAL: Alert and oriented times three. Cranial nerves II through XII grossly intact. sensation intact to light touch and pinprick C2-C3, otherwise altered/diminished caudally (-) babinksi bilat MSK: 5/5 bilat UE, right LE 3/5 HF/KE/ankle DF/EHL and 3/5 PF- left LE 3/5 HF/KE/Ankle DF, EH, 4/5 PF -+able to feel deep anal pressure, no voluntary anal contraction, +intact sphincter tone CELESTINE Spinal Cord exam- C3 Motor Incomplete CELESTINE D SKIN: no rash ASSESSMENT:24-year-old M with no significant past medical history who presents status post acute transverse myelitis with spinal cord injury PLAN: 1. Rehab- PT advance transfers, strengthen/stretch/maintain ROM bilat LE- multipodus boots while in bed OT- advance ADL management, bed mobility, dressing, bathing, shoulder protection exercises 2. Neuro: recently diagnosed transverse myelitis extending from C3 to lumbar region, patient with incomplete quadriplegia-C3 Motor Incomplete CELESTINE D -monitor for decline in function, will consult neurology prn-thus far improving -s/p IVIG, s/p IV Solumedrol for a total of 10 days since initiated on inpatient to be followed by slow oral taper- on Bactrim for PCP ppx while on steroids -monitor for autonomic dysreflexia -leukocytosis likely due to steroids, afebrile 3. cardiac: no known Hx, patient with bradycardia likely due to active lifestyle 4. resp: encourage incentive spirometry, monitor for infection 5. GI: neurogenic bowel, c/u daily bowel regimen, colace/senna/suppository +digital stimulation to trigger recto-colic reflex -Protonix for ppx 6. DVT ppx: Lovenox and TEDs 7. : d/c Hsu 08-05-19, patient able to void on own 8. Skin: turn q2 while in bed, barrier cream to sacrum, educate patient on weight shifting every 30 minutes while seated, offload heels 9. Pain: c/u tylenol prn, gabapentin 100mg TID and Lyrica 75mg BID for paresthesias 10. ID: infectious work-up to date negative, however confirmatory labs for syphilis are pending- Dr. Elena following, recs appreciated 11. Dispo: TBD Allergies Coded Allergies: No Known Allergies (Unverified , 03/20/18) Vital Signs Vital Signs Date Time Temp Pulse Resp B/P (MAP) Pulse Ox O2 Delivery O2 Flow Rate FiO2 08/27/19 14:00 98.3 72 18 127/59 (81) 99 Room Air Current Medications Current Medications Current Medications Medications (Trade) Dose Ordered Sig/Rodrigo Route PRN Reason Start Time Stop Time Status Last Admin Dose Admin Acetaminophen (Tylenol Tab) 650 mg Q4HP PRN PO fever/ PAIN 08/22/19 14:45 08/26/19 20:57 Bisacodyl (Dulcolax Suppository) 10 mg QHS NM 08/22/19 21:00 08/25/19 10:30 Docusate Sodium (Colace) 100 mg TID PO 08/22/19 16:00 08/24/19 15:07 DC 08/24/19 09:07 Docusate Sodium (Colace) 200 mg TID PO 08/24/19 16:00 08/27/19 08:21 Enoxaparin Sodium (Lovenox) 40 mg DAILY SC 08/23/19 09:00 08/25/19 09:59 Lidocaine HCl (Lidocaine 2% Urojet) 1 dose ASDIRECTED PRN TOP FOR EACH CATHETERIZATION 08/26/19 11:45 Methylprednisolone 1000 mg/IV Miscellaneous Supplies 1 each/ Dextrose 266 ml @ 266 mls/hr DAILY IV 08/23/19 09:00 08/25/19 09:59 DC 08/25/19 09:59 Pantoprazole Sodium (Protonix) 40 mg DAILY PO 08/23/19 09:00 08/27/19 08:21 Prednisone (Deltasone) 10 mg DAILY PO 09/30/19 09:00 10/06/19 09:01 Prednisone (Deltasone) 10 mg Q2D PO 10/07/19 09:00 Prednisone (Deltasone) 20 mg DAILY PO 08/26/19 09:00 08/23/19 09:22 DC Prednisone (Deltasone) 20 mg DAILY PO 09/23/19 09:00 09/29/19 09:01 Prednisone (Deltasone) 40 mg DAILY PO 09/16/19 09:00 09/22/19 09:01 Prednisone (Deltasone) 60 mg DAILY PO 09/09/19 09:00 09/15/19 09:01 Prednisone (Deltasone) 80 mg DAILY PO 09/02/19 09:00 09/08/19 09:01 Prednisone (Deltasone) 100 mg DAILY PO 08/26/19 09:00 09/01/19 09:01 08/27/19 08:21 Senna (Senokot) 1 tab ASDIRECTED PO 08/22/19 14:45 08/24/19 15:08 DC 08/22/19 18:13 Senna (Senokot) 1 tab DAILY@1200 PO 08/24/19 12:00 08/27/19 12:08 Senna (Senokot) 1 tab DAILYPRN PRN PO CONSTIPATION 08/24/19 15:15 08/25/19 20:27 Trimethoprim/ Sulfamethoxazole (Bactrim Ds, Septra Ds 160mg/ 800mg) 1 tab MoWeFr@09 PO 08/23/19 09:00 08/26/19 08:24 NIKKI BUENROSTRO MD Aug 27, 2019 14:38
[2019-08-27] MEDS: cefTRIAXone SOD 2 GM in D5W MINI-BAG PLUS 50 ML IV SCH (17:06)
--- NOTE | 2019-08-27 17:42 | IPN ---
DATE: 08/27/2019 Migue seems to be doing much better. His catheter was removed, and he was able to get out of bed on his own, use a commode, and had a bowel movement as well as urinated. He states his lower extremity strength has markedly improved. He does have some numbness. He has no nausea, vomiting, or diarrhea. LABORATORY DATA: CSF had 47 white cells, less than 2 red cells, 100% lymphocytes. CSF VDRL was nonreactive. CSF Lyme was negative for all proteins, but his Lyme serology on serum had 4/10 positive bands. His syphilis serology was reactive, but t-PA antibodies were nonreactive, which suggests a false positive. PHYSICAL EXAMINATION: Temperature is 98.3, pulse 72, respirations 18, blood pressure 127/59, oxygen saturation 99% on room air. Heart: Normal S1, S2. No murmurs. Lungs are clear. No wheezes, rales, or rhonchi. Abdomen: Soft, nontender. No hepatosplenomegaly. Extremities: No edema. The patient is able to flex his hips bilaterally. His strength is 3/5 both lower extremities and 5/5 upper extremities. IMPRESSION: 1. Extensive transverse myelitis on MRI, starting at C3 level, status post IVIG and intravenous (IV) Solu-Medrol, currently on prednisone 100 mg daily until the 16th and 80 mg and tapering over the next 2 weeks. 2. Borderline positive Lyme serology on serum, negative on cerebrospinal fluid (CSF). My suspicion that this is Lyme disease is very low, but due to the fact that he had 4/10 positive IgG bands, I have decided to treat him with Rocephin for possibility of Lyme disease. His syphilis serology is a false positive due to the positive Lyme serology. 3. Immunosuppression from chronic steroid use. The patient is on pneumocystis pneumonia (PCP) prophylaxis with Bactrim Monday, Monday, Monday. PLAN: IV Rocephin 2 grams daily through peripheral IV. Case has been discussed with Dr. Martinez, who agrees with the plan, and Dr. Jo, who is following up from neurology.
[2019-08-27 20:00] VITALS: BP 135/68
[2019-08-27] MEDS: LACTOBACILLUS ACIDOPHILUS CAP (BACID) PO SCH (20:58)
[2019-08-27] MEDS: BISACODYL 10 MG SUPP PR SCH (20:59)
[2019-08-27] MEDS: ACETAMINOPHEN TAB 650MG DOSE (2X325MG) PO PRN (21:18)
[2019-08-28 06:00] VITALS: BP 113/57
[2019-08-28 06:53] LABS: HEMATOCRIT 34.6 % (42.0-52.0); HEMOGLOBIN 11.9 g/dl (13.5-17.5); MEAN CORPUSCULAR HEMOGLOBIN 30.7 pg (27.0-33.0); MEAN CORPUSCULAR HGB CONC 34.4 g/dl (32.0-36.5); MEAN CORPUSCULAR VOLUME 89.4 fl (80.0-96.0); PLATELET COUNT, AUTOMATED 318 10^3/uL (150-450); RED BLOOD COUNT 3.87 10^6/uL (4.30-6.10); WHITE BLOOD COUNT 13.3 10^3/uL (4.0-10.0)
[2019-08-28 07:18] LABS: BLOOD UREA NITROGEN 22 MG/DL (7-18); CALCIUM LEVEL 8.7 MG/DL (8.5-10.1); CARBON DIOXIDE LEVEL 30 MEQ/L (21-32); CHLORIDE LEVEL 102 MEQ/L (98-107); CREATININE FOR GFR 0.76 MG/DL (0.70-1.30); GLOMERULAR FILTRATION RATE > 60.0 (>60); GLUCOSE, FASTING 85 MG/DL (70-100); POTASSIUM SERUM 4.2 MEQ/L (3.5-5.1); SODIUM LEVEL 136 MEQ/L (136-145)
[2019-08-28] MEDS: REMEDY PHYTOPLEX Z-GUARD PASTE 113GM TUBE (FROM STOREROOM PRODUCT) TOP SCH ×3 (09:00→20:33)
[2019-08-28] MEDS: DOCUSATE SODIUM 100 MG CAP PO SCH ×3 (09:42→20:32)
[2019-08-28] MEDS: predniSONE 20 MG TAB PO SCH (09:42)
[2019-08-28] MEDS: LACTOBACILLUS ACIDOPHILUS CAP (BACID) PO SCH ×3 (09:42→20:32)
[2019-08-28] MEDS: PANTOPRAZOLE 40MG TAB (PROTONIX) PO SCH (09:42)
[2019-08-28] MEDS: BACTRIM 160MG/800MG DS TAB PO SCH (09:42)
[2019-08-28] MEDS: ENOXAPARIN 40 MG/0.4 ML SYRINGE (J1650) SC SCH (09:42)
[2019-08-28] MEDS: ACETAMINOPHEN TAB 650MG DOSE (2X325MG) PO PRN (11:29)
[2019-08-28] MEDS: SENNA 8.6 MG TAB (SENOKOT) PO SCH (11:29)
[2019-08-28 14:00] VITALS: BP 131/62
[2019-08-28] MEDS: cefTRIAXone SOD 2 GM in D5W MINI-BAG PLUS 50 ML IV SCH (17:07)
--- NOTE | 2019-08-28 17:34 | IPNPDOC ---
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 He reports he is in shock about what happened to him but not depressed. REVIEW OF SYSTEMS: The following is a completed review of systems and has been reviewed. Review of systems otherwise unremarkable. PAIN: Patient self reports no pain EYES: No recent vision changes EARS, NOSE, & THROAT: No throat pain, or dysphagia, or rhinorrhea CARDIOVASCULAR: Denies chest pain or palpitations PULMONARY: Denies shortness of breath GASTROINTESTINAL: +fecal retention (improving) GENITOURINARY: +urinary retention (improving) MUSCULOSKELETAL: weakness in all 4 limbs NEUROLOGICAL:+ paresthesias HEMATOLOGICAL: denies easy bruising SKIN: denies rash PSYCHIATRIC: Unremarkable All other review of systems found to be negative. PHYSICAL EXAMINATION: VITAL SIGNS: Please see below. GENERAL: Pleasant and cooperative. No acute distress. HEENT: PERRL. Extraocular movements intact. Clear conjunctiva CARDIOVASCULAR: Regular rate and rhythm. No murmurs, rubs, or gallops LUNGS: Clear to auscultation bilaterally. No wheezes. No rhonchi ABDOMEN: Soft, nontender, nondistended. Positive bowel sounds. Normal active bowel sounds NEUROLOGICAL: Alert and oriented times three. Cranial nerves II through XII grossly intact. sensation intact to light touch and pinprick C2-C3, otherwise altered/diminished caudally (-) babinksi bilat MSK: 5/5 bilat UE, right LE 3/5 HF/KE/ankle DF/EHL and 4/5 PF- left LE 3/5 HF/KE/Ankle DF, EH, 4/5 PF -+able to feel deep anal pressure, no voluntary anal contraction, +intact sphincter tone CELESTINE Spinal Cord exam- C3 Motor Incomplete CELESTINE D SKIN: no rash ASSESSMENT:24-year-old M with no significant past medical history who presents status post acute transverse myelitis with spinal cord injury PLAN: 1. Rehab- PT advance transfers, strengthen/stretch/maintain ROM bilat LE- multipodus boots while in bed OT- advance ADL management, bed mobility, dressing, bathing, shoulder protection exercises 2. Neuro: recently diagnosed transverse myelitis extending from C3 to lumbar region, patient with incomplete quadriplegia-C3 Motor Incomplete CELESTINE D -monitor for decline in function, will consult neurology prn-thus far improving -s/p IVIG, s/p IV Solumedrol for a total of 10 days since initiated on inpatient to be followed by slow oral taper- on Bactrim for PCP ppx while on steroids -monitor for autonomic dysreflexia -leukocytosis likely due to steroids, afebrile 3. cardiac: no known Hx, patient with bradycardia likely due to active lifestyle 4. resp: encourage incentive spirometry, monitor for infection 5. GI: neurogenic bowel, c/u daily bowel regimen, colace/senna/suppository +digital stimulation to trigger recto-colic reflex -Protonix for ppx 6. DVT ppx: Lovenox and TEDs 7. : d/c Hsu 08-05-19, patient able to void on own 8. Skin: turn q2 while in bed, barrier cream to sacrum, educate patient on weight shifting every 30 minutes while seated, offload heels 9. Pain: c/u tylenol prn, gabapentin 100mg TID and Lyrica 75mg BID for paresthesias 10. ID: infectious work-up to date negative, however given +RPR with [address] Elena recommending treat for Lyme induced transverse myeltitis- c/u Rocephin for 4 weeks- Dr. Elena recs greatly appreciated 11. Dispo: TBD Allergies Coded Allergies: No Known Allergies (Unverified , 03/20/18) Vital Signs Vital Signs Date Time Temp Pulse Resp B/P (MAP) Pulse Ox O2 Delivery O2 Flow Rate FiO2 08/28/19 14:00 99.5 72 18 131/62 (85) 96 Room Air Laboratory Data CBC/BMP Laboratory Tests 08/28/19 06:22 Labs 24H Laboratory Tests 2 08/28/19 06:22: Nucleated Red Blood Cells % (auto) 0.2H, Anion Gap 4L, Glomerular Filtration Rate > 60.0, Calcium Level 8.7 Current Medications Current Medications Current Medications Medications (Trade) Dose Ordered Sig/Rodrigo Route PRN Reason Start Time Stop Time Status Last Admin Dose Admin Acetaminophen (Tylenol Tab) 650 mg Q4HP PRN PO fever/ PAIN 08/22/19 14:45 08/28/19 11:29 Bisacodyl (Dulcolax Suppository) 10 mg QHS ID 08/22/19 21:00 08/25/19 10:30 Ceftriaxone Sodium 2 gm/ Dextrose 50 ml @ 100 mls/hr Q24H IV 08/27/19 16:45 08/28/19 17:07 Docusate Sodium (Colace) 100 mg TID PO 08/22/19 16:00 08/24/19 15:07 DC 08/24/19 09:07 Docusate Sodium (Colace) 200 mg TID PO 08/24/19 16:00 08/28/19 17:06 Enoxaparin Sodium (Lovenox) 40 mg DAILY SC 08/23/19 09:00 08/28/19 09:42 Lactobacillus Acidophilus (Bacid) 1 ea TID PO 08/27/19 21:00 08/28/19 17:06 Lidocaine HCl (Lidocaine 2% Urojet) 1 dose ASDIRECTED PRN TOP FOR EACH CATHETERIZATION 08/26/19 11:45 Methylprednisolone 1000 mg/IV Miscellaneous Supplies 1 each/ Dextrose 266 ml @ 266 mls/hr DAILY IV 08/23/19 09:00 08/25/19 09:59 DC 08/25/19 09:59 Pantoprazole Sodium (Protonix) 40 mg DAILY PO 08/23/19 09:00 08/28/19 09:42 Prednisone (Deltasone) 10 mg DAILY PO 09/30/19 09:00 10/06/19 09:01 Prednisone (Deltasone) 10 mg Q2D PO 10/07/19 09:00 Prednisone (Deltasone) 20 mg DAILY PO 08/26/19 09:00 08/23/19 09:22 DC Prednisone (Deltasone) 20 mg DAILY PO 09/23/19 09:00 09/29/19 09:01 Prednisone (Deltasone) 40 mg DAILY PO 09/16/19 09:00 09/22/19 09:01 Prednisone (Deltasone) 60 mg DAILY PO 09/09/19 09:00 09/15/19 09:01 Prednisone (Deltasone) 80 mg DAILY PO 09/02/19 09:00 09/08/19 09:01 Prednisone (Deltasone) 100 mg DAILY PO 08/26/19 09:00 09/01/19 09:01 08/28/19 09:42 Senna (Senokot) 1 tab ASDIRECTED PO 08/22/19 14:45 08/24/19 15:08 DC 08/22/19 18:13 Senna (Senokot) 1 tab DAILY@1200 PO 08/24/19 12:00 08/28/19 11:29 Senna (Senokot) 1 tab DAILYPRN PRN PO CONSTIPATION 08/24/19 15:15 08/25/19 20:27 Trimethoprim/ Sulfamethoxazole (Bactrim Ds, Septra Ds 160mg/ 800mg) 1 tab MoWeFr@09 PO 08/23/19 09:00 08/28/19 09:42 NIKKI BUENROSTRO MD Aug 28, 2019 17:34
[2019-08-28] MEDS: BISACODYL 10 MG SUPP PR SCH (20:32)
[2019-08-28 20:55] VITALS: BP 147/77
[2019-08-29 06:00] VITALS: BP 125/63
[2019-08-29] MEDS: PANTOPRAZOLE 40MG TAB (PROTONIX) PO SCH (08:25)
[2019-08-29] MEDS: LACTOBACILLUS ACIDOPHILUS CAP (BACID) PO SCH ×3 (08:26→20:15)
[2019-08-29] MEDS: ENOXAPARIN 40 MG/0.4 ML SYRINGE (J1650) SC SCH (08:26)
[2019-08-29] MEDS: DOCUSATE SODIUM 100 MG CAP PO SCH ×3 (08:26→20:15)
[2019-08-29] MEDS: predniSONE 20 MG TAB PO SCH (08:26)
[2019-08-29] MEDS: REMEDY PHYTOPLEX Z-GUARD PASTE 113GM TUBE (FROM STOREROOM PRODUCT) TOP SCH ×3 (08:27→20:15)
[2019-08-29 14:00] VITALS: BP 131/71
[2019-08-29] MEDS: SENNA 8.6 MG TAB (SENOKOT) PO SCH (14:47)
[2019-08-29] MEDS: cefTRIAXone SOD 2 GM in D5W MINI-BAG PLUS 50 ML IV SCH (17:27)
--- NOTE | 2019-08-29 18:20 | IPNPDOC ---
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 REVIEW OF SYSTEMS: The following is a completed review of systems and has been reviewed. Review of systems otherwise unremarkable. PAIN: Patient self reports no pain EYES: No recent vision changes EARS, NOSE, & THROAT: No throat pain, or dysphagia, or rhinorrhea CARDIOVASCULAR: Denies chest pain or palpitations PULMONARY: Denies shortness of breath GASTROINTESTINAL: +fecal retention (improving) GENITOURINARY: +urinary retention (improving) MUSCULOSKELETAL: weakness in all 4 limbs NEUROLOGICAL:+ paresthesias HEMATOLOGICAL: denies easy bruising SKIN: denies rash PSYCHIATRIC: Unremarkable All other review of systems found to be negative. PHYSICAL EXAMINATION: VITAL SIGNS: Please see below. GENERAL: Pleasant and cooperative. No acute distress. HEENT: PERRL. Extraocular movements intact. Clear conjunctiva CARDIOVASCULAR: Regular rate and rhythm. No murmurs, rubs, or gallops LUNGS: Clear to auscultation bilaterally. No wheezes. No rhonchi ABDOMEN: Soft, nontender, nondistended. Positive bowel sounds. Normal active bowel sounds NEUROLOGICAL: Alert and oriented times three. Cranial nerves II through XII grossly intact. sensation intact to light touch and pinprick C2-C3, otherwise altered/diminished caudally (-) babinksi bilat MSK: 5/5 bilat UE, right LE 3/5 HF/KE/ankle DF/EHL and 4/5 PF- left LE 3/5 HF/KE/Ankle DF, EH, 4/5 PF CELESTINE Spinal Cord exam- C3 Motor Incomplete CELESTINE D EXT: (-) Wanda's bilat SKIN: no rash ASSESSMENT:24-year-old M with no significant past medical history who presents status post acute transverse myelitis with spinal cord injury PLAN: 1. Rehab- PT advance transfers, strengthen/stretch/maintain ROM bilat LE- multipodus boots while in bed OT- advance ADL management, bed mobility, dressing, bathing, shoulder protection exercises 2. Neuro: recently diagnosed transverse myelitis extending from C3 to lumbar region, patient with incomplete quadriplegia-C3 Motor Incomplete CELESTINE D -monitor for decline in function, will consult neurology prn-thus far improving -s/p IVIG, s/p IV Solumedrol for a total of 10 days since initiated on inpatient to be followed by slow oral taper- on Bactrim for PCP ppx while on steroids -monitor for autonomic dysreflexia -leukocytosis likely due to steroids, afebrile 3. cardiac: no known Hx, patient with bradycardia likely due to active lifestyle 4. resp: encourage incentive spirometry, monitor for infection 5. GI: neurogenic bowel, c/u daily bowel regimen, colace/senna/suppository +digital stimulation to trigger recto-colic reflex, patient able to initiate bowel movements -Protonix for ppx 6. DVT ppx: Lovenox and TEDs 7. : d/c [facility] 08-05-[facility], patient able to void on own 8. Skin: turn q2 while in bed, barrier cream to sacrum, educate patient on weight shifting every 30 minutes while seated, offload heels 9. Pain: c/u tylenol prn, gabapentin 100mg TID and Lyrica 75mg BID for paresthesias 10. ID: infectious work-up to date negative, however given +RPR with [address] 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 Elena recs greatly appreciated 11. Dispo: TBD Allergies Coded Allergies: No Known Allergies (Unverified , 03/20/18) Vital Signs Vital Signs Date Time Temp Pulse Resp B/P (MAP) Pulse Ox O2 Delivery O2 Flow Rate FiO2 08/29/19 14:00 98.5 82 18 131/71 (91) 100 Room Air Current Medications Current Medications Current Medications Medications (Trade) Dose Ordered Sig/Rodrigo Route PRN Reason Start Time Stop Time Status Last Admin Dose Admin Acetaminophen (Tylenol Tab) 650 mg Q4HP PRN PO fever/ PAIN 08/22/19 14:45 08/28/19 11:29 Bisacodyl (Dulcolax Suppository) 10 mg QHS SC 08/22/19 21:00 08/25/19 10:30 Ceftriaxone Sodium 2 gm/ Dextrose 50 ml @ 100 mls/hr Q24H IV 08/27/19 16:45 08/29/19 17:27 Docusate Sodium (Colace) 100 mg TID PO 08/22/19 16:00 08/24/19 15:07 DC 08/24/19 09:07 Docusate Sodium (Colace) 200 mg TID PO 08/24/19 16:00 08/29/19 17:25 Enoxaparin Sodium (Lovenox) 40 mg DAILY SC 08/23/19 09:00 08/29/19 08:26 Lactobacillus Acidophilus (Bacid) 1 ea TID PO 08/27/19 21:00 08/29/19 17:26 Lidocaine HCl (Lidocaine 2% Urojet) 1 dose ASDIRECTED PRN TOP FOR EACH CATHETERIZATION 08/26/19 11:45 Methylprednisolone 1000 mg/IV Miscellaneous Supplies 1 each/ Dextrose 266 ml @ 266 mls/hr DAILY IV 08/23/19 09:00 08/25/19 09:59 DC 08/25/19 09:59 Pantoprazole Sodium (Protonix) 40 mg DAILY PO 08/23/19 09:00 08/29/19 08:25 Prednisone (Deltasone) 10 mg DAILY PO 09/30/19 09:00 10/06/19 09:01 Prednisone (Deltasone) 10 mg Q2D PO 10/07/19 09:00 Prednisone (Deltasone) 20 mg DAILY PO 08/26/19 09:00 08/23/19 09:22 DC Prednisone (Deltasone) 20 mg DAILY PO 09/23/19 09:00 09/29/19 09:01 Prednisone (Deltasone) 40 mg DAILY PO 09/16/19 09:00 09/22/19 09:01 Prednisone (Deltasone) 60 mg DAILY PO 09/09/19 09:00 09/15/19 09:01 Prednisone (Deltasone) 80 mg DAILY PO 09/02/19 09:00 09/08/19 09:01 Prednisone (Deltasone) 100 mg DAILY PO 08/26/19 09:00 09/01/19 09:01 08/29/19 08:26 Senna (Senokot) 1 tab ASDIRECTED PO 08/22/19 14:45 08/24/19 15:08 DC 08/22/19 18:13 Senna (Senokot) 1 tab DAILY@1200 PO 08/24/19 12:00 08/29/19 14:47 Senna (Senokot) 1 tab DAILYPRN PRN PO CONSTIPATION 08/24/19 15:15 08/25/19 20:27 Trimethoprim/ Sulfamethoxazole (Bactrim Ds, Septra Ds 160mg/ 800mg) 1 tab MoWeFr@09 PO 08/23/19 09:00 08/28/19 09:42 NIKKI BUENROSTRO MD Aug 29, 2019 18:20
[2019-08-29 20:00] VITALS: BP 140/68
[2019-08-29] MEDS: BISACODYL 10 MG SUPP PR SCH (20:15)
[2019-08-30 05:48] VITALS: BP 106/54
[2019-08-30] MEDS: ENOXAPARIN 40 MG/0.4 ML SYRINGE (J1650) SC SCH ×2 (09:00→10:03)
[2019-08-30] MEDS: REMEDY PHYTOPLEX Z-GUARD PASTE 113GM TUBE (FROM STOREROOM PRODUCT) TOP SCH ×3 (09:00→21:00)
[2019-08-30] MEDS: DOCUSATE SODIUM 100 MG CAP PO SCH ×3 (10:02→21:00)
[2019-08-30] MEDS: LACTOBACILLUS ACIDOPHILUS CAP (BACID) PO SCH ×3 (10:02→21:00)
[2019-08-30] MEDS: BACTRIM 160MG/800MG DS TAB PO SCH (10:03)
[2019-08-30] MEDS: PANTOPRAZOLE 40MG TAB (PROTONIX) PO SCH (10:03)
[2019-08-30] MEDS: predniSONE 20 MG TAB PO SCH (10:03)
[2019-08-30] MEDS: SENNA 8.6 MG TAB (SENOKOT) PO SCH (12:00)
--- NOTE | 2019-08-30 12:26 | IPNPDOC ---
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 He reports he has a headache. REVIEW OF SYSTEMS: The following is a completed review of systems and has been reviewed. Review of systems otherwise unremarkable. PAIN: Patient self reports no pain EYES: No recent vision changes EARS, NOSE, & THROAT: No throat pain, or dysphagia, or rhinorrhea CARDIOVASCULAR: Denies chest pain or palpitations PULMONARY: Denies shortness of breath GASTROINTESTINAL: +fecal retention (improving) GENITOURINARY: +urinary retention (improving) MUSCULOSKELETAL: weakness in all 4 limbs NEUROLOGICAL:+ paresthesias HEMATOLOGICAL: denies easy bruising SKIN: denies rash PSYCHIATRIC: Unremarkable All other review of systems found to be negative. PHYSICAL EXAMINATION: VITAL SIGNS: Please see below. GENERAL: Pleasant and cooperative. No acute distress. HEENT: PERRL. Extraocular movements intact. Clear conjunctiva CARDIOVASCULAR: Regular rate and rhythm. No murmurs, rubs, or gallops LUNGS: Clear to auscultation bilaterally. No wheezes. No rhonchi ABDOMEN: Soft, nontender, nondistended. Positive bowel sounds. Normal active bowel sounds NEUROLOGICAL: Alert and oriented times three. Cranial nerves II through XII grossly intact. sensation intact to light touch and pinprick C2-C3, otherwise altered/diminished caudally (-) babinksi bilat MSK: 5/5 bilat UE, right LE 3/5 HF/KE/ankle DF/EHL and 4/5 PF- left LE 3/5 HF/KE/Ankle DF, EH, 4/5 PF CELESTINE Spinal Cord exam- C3 Motor Incomplete CELESTINE D EXT: (-) Wanda's bilat SKIN: no rash ASSESSMENT:24-year-old M with no significant past medical history who presents status post acute transverse myelitis with spinal cord injury PLAN: 1. Rehab- PT advance transfers, strengthen/stretch/maintain ROM bilat LE- multipodus boots while in bed OT- advance ADL management, bed mobility, dressing, bathing, shoulder protection exercises 2. Neuro: recently diagnosed transverse myelitis extending from C3 to lumbar region, patient with incomplete quadriplegia-C3 Motor Incomplete CELESTINE D -monitor for decline in function, will consult neurology prn-thus far improving -s/p IVIG, s/p IV Solumedrol for a total of 10 days since initiated on inpatient to be followed by slow oral taper- on Bactrim for PCP ppx while on steroids -monitor for autonomic dysreflexia -leukocytosis likely due to steroids, afebrile 3. cardiac: no known Hx, patient with bradycardia likely due to active lifestyle 4. resp: encourage incentive spirometry, monitor for infection 5. GI: neurogenic bowel, c/u daily bowel regimen, colace/senna/suppository +digital stimulation to trigger recto-colic reflex, patient able to initiate bowel movements -Protonix for ppx 6. DVT ppx: Lovenox and TEDs 7. : d/c [facility] 08-05-[facility], patient able to void on own 8. Skin: turn q2 while in bed, barrier cream to sacrum, educate patient on weight shifting every 30 minutes while seated, offload heels 9. Pain: c/u tylenol will change to standing, will start gabapentin 200mg TID for paresthesias- patient has not been on neuropathic agents since his admission 10. ID: infectious work-up to date negative, however given +RPR with [address] 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 Elena recs greatly appreciated 11. Dispo: TBD Allergies Coded Allergies: No Known Allergies (Unverified , 03/20/18) Vital Signs Vital Signs Date Time Temp Pulse Resp B/P (MAP) Pulse Ox O2 Delivery O2 Flow Rate FiO2 08/30/19 05:48 97.7 61 16 106/54 (71) 99 Room Air Current Medications Current Medications Current Medications Medications (Trade) Dose Ordered Sig/Rodrigo Route PRN Reason Start Time Stop Time Status Last Admin Dose Admin Acetaminophen (Tylenol Tab) 650 mg Q4HP PRN PO fever/ PAIN 08/22/19 14:45 08/28/19 11:29 Bisacodyl (Dulcolax Suppository) 10 mg QHS [place] 08/22/19 21:00 08/25/19 10:30 Ceftriaxone Sodium 2 gm/ Dextrose 50 ml @ 100 mls/hr Q24H IV 08/27/19 16:45 08/29/19 17:27 Docusate Sodium (Colace) 100 mg TID PO 2/6/20 16:00 08/24/19 15:07 DC 08/24/19 09:07 Docusate Sodium (Colace) 200 mg TID PO 08/24/19 16:00 08/30/19 10:02 Enoxaparin Sodium (Lovenox) 40 mg DAILY SC 08/23/19 09:00 08/29/19 08:26 Lactobacillus Acidophilus (Bacid) 1 ea TID PO 08/27/19 21:00 08/30/19 10:02 Lidocaine HCl (Lidocaine 2% Urojet) 1 dose ASDIRECTED PRN TOP FOR EACH CATHETERIZATION 08/26/19 11:45 Methylprednisolone 1000 mg/IV Miscellaneous Supplies 1 each/ Dextrose 266 ml @ 266 mls/hr DAILY IV 08/23/19 09:00 08/25/19 09:59 DC 08/25/19 09:59 Pantoprazole Sodium (Protonix) 40 mg DAILY PO 08/23/19 09:00 08/30/19 10:03 Prednisone (Deltasone) 10 mg DAILY PO 09/30/19 09:00 10/06/19 09:01 Prednisone (Deltasone) 10 mg Q2D PO 10/07/19 09:00 Prednisone (Deltasone) 20 mg DAILY PO 08/26/19 09:00 08/23/19 09:22 DC Prednisone (Deltasone) 20 mg DAILY PO 09/23/19 09:00 09/29/19 09:01 Prednisone (Deltasone) 40 mg DAILY PO 09/16/19 09:00 09/22/19 09:01 Prednisone (Deltasone) 60 mg DAILY PO 09/09/19 09:00 09/15/19 09:01 Prednisone (Deltasone) 80 mg DAILY PO 09/02/19 09:00 09/08/19 09:01 Prednisone (Deltasone) 100 mg DAILY PO 08/26/19 09:00 09/01/19 09:01 08/30/19 10:03 Senna (Senokot) 1 tab ASDIRECTED PO 08/22/19 14:45 08/24/19 15:08 DC 08/22/19 18:13 Senna (Senokot) 1 tab DAILY@1200 PO 08/24/19 12:00 08/29/19 14:47 Senna (Senokot) 1 tab DAILYPRN PRN PO CONSTIPATION 08/24/19 15:15 08/25/19 20:27 Trimethoprim/ Sulfamethoxazole (Bactrim Ds, Septra Ds 160mg/ 800mg) 1 tab MoWeFr@09 PO 08/23/19 09:00 08/30/19 10:03 NIKKI BUENROSTRO MD Aug 30, 2019 12:26
[2019-08-30 14:00] VITALS: BP 136/60
[2019-08-30] MEDS: GABAPENTIN 100 MG CAP PO SCH ×3 (14:44→21:01)
[2019-08-30] MEDS: ACETAMINOPHEN 325 MG TAB PO SCH ×3 (14:45→21:01)
[2019-08-30] MEDS: cefTRIAXone SOD 2 GM in D5W MINI-BAG PLUS 50 ML IV SCH (15:49)
[2019-08-30 20:00] VITALS: BP 154/77
[2019-08-30] MEDS: BISACODYL 10 MG SUPP PR SCH (21:00)
[2019-08-31 06:00] VITALS: BP 128/56
[2019-08-31 07:53] LABS: HEMATOCRIT 35.1 % (42.0-52.0); HEMOGLOBIN 12.2 g/dl (13.5-17.5); MEAN CORPUSCULAR HEMOGLOBIN 31.6 pg (27.0-33.0); MEAN CORPUSCULAR HGB CONC 34.8 g/dl (32.0-36.5); MEAN CORPUSCULAR VOLUME 90.9 fl (80.0-96.0); PLATELET COUNT, AUTOMATED 288 10^3/uL (150-450); RED BLOOD COUNT 3.86 10^6/uL (4.30-6.10); WHITE BLOOD COUNT 14.6 10^3/uL (4.0-10.0)
[2019-08-31 08:08] LABS: BLOOD UREA NITROGEN 26 MG/DL (7-18); CARBON DIOXIDE LEVEL 29 MEQ/L (21-32); CHLORIDE LEVEL 103 MEQ/L (98-107); GLOMERULAR FILTRATION RATE > 60.0 (>60); GLUCOSE, FASTING 87 MG/DL (70-100); POTASSIUM SERUM 4.2 MEQ/L (3.5-5.1); SODIUM LEVEL 137 MEQ/L (136-145)
[2019-08-31] MEDS: LACTOBACILLUS ACIDOPHILUS CAP (BACID) PO SCH ×3 (08:10→20:39)
[2019-08-31] MEDS: PANTOPRAZOLE 40MG TAB (PROTONIX) PO SCH (08:10)
[2019-08-31] MEDS: GABAPENTIN 100 MG CAP PO SCH ×3 (08:10→20:39)
[2019-08-31] MEDS: DOCUSATE SODIUM 100 MG CAP PO SCH ×3 (08:10→20:39)
[2019-08-31] MEDS: ACETAMINOPHEN 325 MG TAB PO SCH ×3 (08:11→20:42)
[2019-08-31] MEDS: REMEDY PHYTOPLEX Z-GUARD PASTE 113GM TUBE (FROM STOREROOM PRODUCT) TOP SCH ×3 (08:12→20:23)
[2019-08-31] MEDS: ENOXAPARIN 40 MG/0.4 ML SYRINGE (J1650) SC SCH (08:12)
[2019-08-31] MEDS: predniSONE 20 MG TAB PO SCH (08:12)
[2019-08-31] MEDS: SENNA 8.6 MG TAB (SENOKOT) PO SCH (12:00)
[2019-08-31 14:00] VITALS: BP 135/60
--- NOTE | 2019-08-31 14:52 | IPNPDOC ---
Text Note Date of Service The patient was seen on 08/31/19. NOTE HOSPITALIST NOTE S: Pt examined at bedside in acute rehab unit. Continues to work with PT and progressing in rehab. States he is able to ambulate more than prior days, and has no other complaints. Tolerating all meds well. PE: Vitals: see below General: NAD, A&Ox3, resting comfortably HEENT: NCAT, EOMI, anicteric sclera, MMM CV: RRR, no murmurs or clicks or rub. No edema RESP: CTAB, no w/r/r/ ABD: soft, NT, ND. Benign EXTREMITIES: 2+ radial pulses b/l, able to move all extremities MSK: 5/5 all throughout, good mediation commissioner strength NEURO: no focal deficits or acute changes A/P: This is a 24-year-old male admitted for transverse myelitis treated with IVIG and high-dose IV steroids continuing in physical therapy and making gradual progress. 1. 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 He was treated with IVIG and Solu-Medrol 1 g/day that is now being tapered down as per Neuro. Continue GI prophylaxis. Given concern for immunosuppression from chronic steroid use, he is on Bactrim for PCP prophylaxis, and ceftriaxone for borderline positive serolgy as per Infectious Disease. He is noticing improvement in his strength and is able to ambulate independently for a few fee t. Continue rehabilitation and is otherwise doing well medically. No changes made today. DVT ppx: ambulate with rehab GI ppx: po protonix DISPO: pending clinical improvement. Continue therapy. VS,Fishbone, I+O VS, Fishbone, I+O Laboratory Tests 08/31/19 07:04 Vital Signs Date Time Temp Pulse Resp B/P (MAP) Pulse Ox O2 Delivery O2 Flow Rate FiO2 08/31/19 06:00 97.8 57 16 128/56 (80) 97 Room Air I&O- Last 24 Hours up to 6 AM 08/31/19 06:00 Intake Total 1800 ml Output Total 1750 ml Balance 50 ml GME ATTESTATION GME ATTESTATION My faculty preceptor for this patient encounter was physically present during the encounter and was fully available. All aspects of the patient interview, examination, medical decision making process, and medical care plan development were reviewed and approved by the faculty preceptor. The faculty preceptor is aware and concurs with the plan as stated in the body of this note and will attest to such by his/her cosignature. ATTENDING NOTE I, Arian Murdock, have independently examined this patient and performed my own physical exam, as well as reviewed the documentation and edited where necessary. I have discussed in detail with the resident / student the findings and plan of treatment as documented by the resident / student and edited their note. I agree with their findings and treatment plan and have edited their documentation. I will continue to follow the patient during this hospital stay. MARKO SLADE DO Aug 31, 2019 14:52 ARIAN MURDOCK MD Aug 31, 2019 17:48
[2019-08-31] MEDS: cefTRIAXone SOD 2 GM in D5W MINI-BAG PLUS 50 ML IV SCH (16:16)
[2019-08-31 20:00] VITALS: BP 127/61
[2019-08-31] MEDS: BISACODYL 10 MG SUPP PR SCH (20:22)
[2019-09-01 06:00] VITALS: BP 106/58
[2019-09-01] MEDS: GABAPENTIN 100 MG CAP PO SCH ×3 (08:24→20:42)
[2019-09-01] MEDS: predniSONE 20 MG TAB PO SCH (08:25)
[2019-09-01] MEDS: LACTOBACILLUS ACIDOPHILUS CAP (BACID) PO SCH ×3 (08:25→20:43)
[2019-09-01] MEDS: PANTOPRAZOLE 40MG TAB (PROTONIX) PO SCH (08:25)
[2019-09-01] MEDS: DOCUSATE SODIUM 100 MG CAP PO SCH ×3 (08:25→20:43)
[2019-09-01] MEDS: REMEDY PHYTOPLEX Z-GUARD PASTE 113GM TUBE (FROM STOREROOM PRODUCT) TOP SCH ×3 (08:26→20:43)
[2019-09-01] MEDS: ACETAMINOPHEN 325 MG TAB PO SCH ×3 (08:26→20:43)
[2019-09-01] MEDS: ENOXAPARIN 40 MG/0.4 ML SYRINGE (J1650) SC SCH (08:26)
[2019-09-01] MEDS: SENNA 8.6 MG TAB (SENOKOT) PO SCH (12:00)
[2019-09-01 15:00] VITALS: BP 141/62
[2019-09-01 20:00] VITALS: BP 123/64
[2019-09-01] MEDS: BISACODYL 10 MG SUPP PR SCH (20:43)
[2019-09-02 06:00] VITALS: BP 114/53
[2019-09-02 07:35] LABS: BASO % 0.1 % (0.0-1.0); EOS # 0.1 10^3/uL (0.0-0.5); EOS % 0.6 % (0.0-3.0); HEMOGLOBIN 12.1 g/dl (13.5-17.5); LYMPH # 3.9 10^3/uL (1.5-5.0); LYMPH % 31.7 % (24.0-44.0); MEAN CORPUSCULAR HGB CONC 34.6 g/dl (32.0-36.5); MEAN CORPUSCULAR VOLUME 92.6 fl (80.0-96.0); MONO # 0.9 10^3/uL (0.0-0.8); MONO % 7.3 % (0.0-5.0); NEUTROPHILS # 7.3 10^3/uL (1.5-8.5); NEUTROPHILS % 58.9 % (36.0-66.0); PLATELET COUNT, AUTOMATED 252 10^3/uL (150-450); RED BLOOD COUNT 3.78 10^6/uL (4.30-6.10); WHITE BLOOD COUNT 12.4 10^3/uL (4.0-10.0)
[2019-09-02 07:52] LABS: BLOOD UREA NITROGEN 20 MG/DL (7-18); CALCIUM LEVEL 8.7 MG/DL (8.5-10.1); CARBON DIOXIDE LEVEL 30 MEQ/L (21-32); CHLORIDE LEVEL 106 MEQ/L (98-107); CREATININE FOR GFR 0.65 MG/DL (0.70-1.30); GLOMERULAR FILTRATION RATE > 60.0 (>60); GLUCOSE, FASTING 81 MG/DL (70-100); POTASSIUM SERUM 3.7 MEQ/L (3.5-5.1); SODIUM LEVEL 139 MEQ/L (136-145)
[2019-09-02] MEDS: ENOXAPARIN 40 MG/0.4 ML SYRINGE (J1650) SC SCH ×2 (09:00→09:03)
[2019-09-02] MEDS: REMEDY PHYTOPLEX Z-GUARD PASTE 113GM TUBE (FROM STOREROOM PRODUCT) TOP SCH ×3 (09:00→22:39)
[2019-09-02] MEDS: LACTOBACILLUS ACIDOPHILUS CAP (BACID) PO SCH ×3 (09:03→22:38)
[2019-09-02] MEDS: predniSONE 20 MG TAB PO SCH (09:03)
[2019-09-02] MEDS: DOCUSATE SODIUM 100 MG CAP PO SCH ×3 (09:03→22:39)
[2019-09-02] MEDS: GABAPENTIN 100 MG CAP PO SCH ×3 (09:03→22:37)
[2019-09-02] MEDS: PANTOPRAZOLE 40MG TAB (PROTONIX) PO SCH (09:04)
[2019-09-02] MEDS: BACTRIM 160MG/800MG DS TAB PO SCH (09:04)
[2019-09-02] MEDS: ACETAMINOPHEN 325 MG TAB PO SCH ×3 (09:04→22:38)
[2019-09-02] MEDS: SENNA 8.6 MG TAB (SENOKOT) PO SCH (12:08)
--- NOTE | 2019-09-02 12:14 | IPNPDOC ---
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 He reports the burning pain in his legs is better on the gabapentin. REVIEW OF SYSTEMS: The following is a completed review of systems and has been reviewed. Review of systems otherwise unremarkable. PAIN: Patient self reports no pain EYES: No recent vision changes EARS, NOSE, & THROAT: No throat pain, or dysphagia, or rhinorrhea CARDIOVASCULAR: Denies chest pain or palpitations PULMONARY: Denies shortness of breath GASTROINTESTINAL: +fecal retention (improving) GENITOURINARY: +urinary retention (improving) MUSCULOSKELETAL: weakness in all 4 limbs NEUROLOGICAL:+ paresthesias HEMATOLOGICAL: denies easy bruising SKIN: denies rash PSYCHIATRIC: Unremarkable All other review of systems found to be negative. PHYSICAL EXAMINATION: VITAL SIGNS: Please see below. GENERAL: Pleasant and cooperative. No acute distress. HEENT: PERRL. Extraocular movements intact. Clear conjunctiva CARDIOVASCULAR: Regular rate and rhythm. No murmurs, rubs, or gallops LUNGS: Clear to auscultation bilaterally. No wheezes. No rhonchi ABDOMEN: Soft, nontender, nondistended. Positive bowel sounds. Normal active bowel sounds NEUROLOGICAL: Alert and oriented times three. Cranial nerves II through XII grossly intact. sensation intact to light touch and pinprick C2-C3, otherwise altered/diminished caudally (-) babinksi bilat MSK: 5/5 bilat UE, right LE 3/5 HF/KE/ankle DF/EHL and 4/5 PF- left LE 3/5 HF/KE/Ankle DF, EH, 4/5 PF CELESTINE Spinal Cord exam- C3 Motor Incomplete CELESTINE D EXT: (-) Wanda's bilat SKIN: no rash ASSESSMENT:24-year-old M with no significant past medical history who presents status post acute transverse myelitis with spinal cord injury PLAN: 1. Rehab- PT advance transfers, strengthen/stretch/maintain ROM bilat LE- multipodus boots while in bed- room privileges from w/c level OT- advance ADL management, bed mobility, dressing, bathing, shoulder protection exercises 2. Neuro: recently diagnosed transverse myelitis extending from C3 to lumbar region, patient with incomplete quadriplegia-C3 Motor Incomplete CELESTINE D -monitor for decline in function, will consult neurology prn-thus far improving -s/p IVIG, s/p IV Solumedrol for a total of 10 days since initiated on inpatient to be followed by slow oral taper- on Bactrim for PCP ppx while on steroids -monitor for autonomic dysreflexia -leukocytosis likely due to steroids, afebrile 3. cardiac: no known Hx, patient with bradycardia likely due to active lifestyle 4. resp: encourage incentive spirometry, monitor for infection 5. GI: neurogenic bowel, c/u daily bowel regimen, colace/senna/suppository +digital stimulation to trigger recto-colic reflex, patient able to initiate bowel movements on his own -Protonix for ppx 6. DVT ppx: Lovenox and TEDs 7. : d/c [facility] 08-05-[facility], patient able to void on own 8. Skin: turn q2 while in bed, barrier cream to sacrum, educate patient on weight shifting every 30 minutes while seated, offload heels 9. Pain: c/u tylenol standing, will increase gabapentin to 400mg TID0 patient reporting he feels his paresthesias are improving 10. ID: infectious work-up to date negative, however given +RPR with [address] 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 Elena recyolanda greatly appreciated 11. Dispo: TBD Allergies Coded Allergies: No Known Allergies (Unverified , 03/20/18) Vital Signs Vital Signs Date Time Temp Pulse Resp B/P (MAP) Pulse Ox O2 Delivery O2 Flow Rate FiO2 09/02/19 06:00 97.5 72 18 114/53 (73) 98 Room Air Laboratory Data CBC/BMP Laboratory Tests 09/02/19 06:33 Labs 24H Laboratory Tests 2 09/02/19 06:33: Immature Granulocyte % (Auto) 1.4, Neutrophils (%) (Auto) 58.9, Lymphocytes (%) (Auto) 31.7, Monocytes (%) (Auto) 7.3H, Eosinophils (%) (Auto) 0.6, Basophils (%) (Auto) 0.1, Neutrophils # (Auto) 7.3, Lymphocytes # (Auto) 3.9, Monocytes # (Auto) 0.9H, Eosinophils # (Auto) 0.1, Basophils # (Auto) 0.0, Nucleated Red Blood Cells % (auto) 0.0, Anion Gap 3L, Glomerular Filtration Rate > 60.0, Calcium Level 8.7 Current Medications Current Medications Current Medications Medications (Trade) Dose Ordered Sig/Rodrigo Route PRN Reason Start Time Stop Time Status Last Admin Dose Admin Acetaminophen (Tylenol Tab) 650 mg Q4HP PRN PO fever/ PAIN 08/22/19 14:45 08/30/19 12:27 DC 08/28/19 11:29 Acetaminophen (Tylenol Tab) 975 mg TID PO 08/30/19 09:00 09/02/19 09:04 Bisacodyl (Dulcolax Suppository) 10 mg QHS [place] 08/22/19 21:00 08/25/19 10:30 Ceftriaxone Sodium 2 gm/ Dextrose 50 ml @ 100 mls/hr Q24H IV 08/27/19 16:45 09/01/19 16:44 DC 08/31/19 16:16 Ceftriaxone Sodium 2 gm/ Dextrose 50 ml @ 100 mls/hr Q24H IV 09/02/19 16:00 Docusate Sodium (Colace) 100 mg TID PO 08/22/19 16:00 08/24/19 15:07 DC 08/24/19 09:07 Docusate Sodium (Colace) 200 mg TID PO 08/24/19 16:00 09/02/19 09:03 Enoxaparin Sodium (Lovenox) 40 mg DAILY SC 08/23/19 09:00 08/29/19 08:26 Gabapentin (Neurontin) 200 mg TID PO 08/30/19 09:00 09/02/19 09:03 Lactobacillus Acidophilus (Bacid) 1 ea TID PO 08/27/19 21:00 09/02/19 09:03 Lidocaine HCl (Lidocaine 2% Urojet) 1 dose ASDIRECTED PRN TOP FOR EACH CATHETERIZATION 08/26/19 11:45 Methylprednisolone 1000 mg/IV Miscellaneous Supplies 1 each/ Dextrose 266 ml @ 266 mls/hr DAILY IV 08/23/19 09:00 08/25/19 09:59 DC 08/25/19 09:59 Pantoprazole Sodium (Protonix) 40 mg DAILY PO 08/23/19 09:00 09/02/19 09:04 Prednisone (Deltasone) 10 mg DAILY PO 09/30/19 09:00 10/06/19 09:01 Prednisone (Deltasone) 10 mg Q2D PO 10/07/19 09:00 Prednisone (Deltasone) 20 mg DAILY PO 08/26/19 09:00 08/23/19 09:22 DC Prednisone (Deltasone) 20 mg DAILY PO 09/23/19 09:00 09/29/19 09:01 Prednisone (Deltasone) 40 mg DAILY PO 09/16/19 09:00 09/22/19 09:01 Prednisone (Deltasone) 60 mg DAILY PO 09/09/19 09:00 09/15/19 09:01 Prednisone (Deltasone) 80 mg DAILY PO 09/02/19 09:00 09/08/19 09:01 09/02/19 09:03 Prednisone (Deltasone) 100 mg DAILY PO 08/26/19 09:00 09/01/19 09:01 DC 09/01/19 08:25 Senna (Senokot) 1 tab ASDIRECTED PO 08/22/19 14:45 08/24/19 15:08 DC 08/22/19 18:13 Senna (Senokot) 1 tab DAILY@1200 PO 08/24/19 12:00 09/02/19 12:08 Senna (Senokot) 1 tab DAILYPRN PRN PO CONSTIPATION 08/24/19 15:15 08/25/19 20:27 Trimethoprim/ Sulfamethoxazole (Bactrim Ds, Septra Ds 160mg/ 800mg) 1 tab MoWeFr@09 PO 08/23/19 09:00 09/02/19 09:04 NIKKI BUENROSTRO MD Sep 02, 2019 12:14
[2019-09-02 14:00] VITALS: BP 114/55
[2019-09-02] MEDS: cefTRIAXone SOD 2 GM in D5W MINI-BAG PLUS 50 ML IV SCH (16:01)
[2019-09-02 20:00] VITALS: BP_SYST 117; BP_SYST 120; BP_DIAS 59; BP_DIAS 60
[2019-09-02] MEDS: BISACODYL 10 MG SUPP PR SCH (22:39)
--- NOTE | 2019-09-02 22:55 | IPN ---
DATE: 08/30/2019 Migue seems to be doing better. He was seen in physical therapy today. He has been able to walk about 5 feet. Continues to improve daily. He has had no fever or chills. No nausea, vomiting, or diarrhea. He has a mild headache, mostly on the right side above his eyebrow since he has been started on IV Rocephin. No neck stiffness. LABS: White count is 13.3, hemoglobin 11.9, hematocrit 35.6, platelets 318. Sodium 136, potassium 4.2, chloride 102, bicarbonate 30, BUN 22, creatinine 0.76, glucose 85, calcium 8.7. Labs were done on 08/28/2019. Treponema pallidum antibody was nonreactive. PHYSICAL EXAMINATION: Heart: Normal S1, S2. No murmurs. Lungs are clear. No wheezes, rales, or rhonchi. Abdomen: Soft, nontender. Hip flexion 4 bilaterally. Knee extension about 5- bilaterally. Temperature is 97.7, pulse 61, respirations 16, blood pressure 106/54, oxygen saturation 99% on room air. IMPRESSION: 1. Transverse myelitis, improving on oral prednisone status post intravenous immunoglobulin (IVIG). Patient on Bactrim for PCP prophylaxis while on high- dose steroids. 2. Leukocytosis, steroid induced. 3. Lyme serology with 4/10 positive IgG band and serum but negative on cerebrospinal fluid (CSF). I am not sure if this is a false positive result versus possibly Lyme disease, but it is not consistent with Lyme transverse myelitis as his CSF Lyme bands were negative. VDRL was negative PLAN At this point,I have opted to treat him with Rocephin while he is inpatient as transverse spinal myelitis from Lyme disease has been reported, although very rare. We will decide on his length of treatment depending on his clinical improvement and whenever he gets discharged home, he could probably finish treatment with oral doxycycline. PRASANTHD
[2019-09-03 06:00] VITALS: BP 116/53
[2019-09-03] MEDS: REMEDY PHYTOPLEX Z-GUARD PASTE 113GM TUBE (FROM STOREROOM PRODUCT) TOP SCH ×3 (09:00→21:00)
[2019-09-03] MEDS: ENOXAPARIN 40 MG/0.4 ML SYRINGE (J1650) SC SCH (09:00)
[2019-09-03] MEDS: GABAPENTIN 100 MG CAP PO SCH ×3 (09:34→21:30)
[2019-09-03] MEDS: PANTOPRAZOLE 40MG TAB (PROTONIX) PO SCH (09:34)
[2019-09-03] MEDS: predniSONE 20 MG TAB PO SCH (09:34)
[2019-09-03] MEDS: DOCUSATE SODIUM 100 MG CAP PO SCH ×3 (09:34→21:29)
[2019-09-03] MEDS: LACTOBACILLUS ACIDOPHILUS CAP (BACID) PO SCH ×4 (09:34→21:32)
[2019-09-03] MEDS: ACETAMINOPHEN 325 MG TAB PO SCH ×3 (09:35→21:34)
[2019-09-03 14:00] VITALS: BP 144/65
[2019-09-03] MEDS: SENNA 8.6 MG TAB (SENOKOT) PO SCH (14:00)
--- NOTE | 2019-09-03 14:19 | IPNPDOC ---
Text Note Date of Service The patient was seen on 09/03/19. NOTE HOSPITALIST NOTE S: Pt examined while participating in rehab. Is doing well overall and gradually making progress, able to ambulate a few feet with walker independently. No events or changes since last assessed. Has no complaints and is in good spirits. Tolerating all meds well. PE: Vitals: see below General: NAD, A&Ox3, sitting in wheelchair comfortably in rehabilitation HEENT: NCAT, EOMI, anicteric sclera, MMM CV: RRR, no murmurs or clicks or rub. No edema RESP: CTAB, no w/r/r/ ABD: soft, NT, ND. Benign EXTREMITIES: 2+ radial pulses b/l, able to move all extremities MSK: 5/5 all throughout, good director selection and administration strength, no muscle atrophy NEURO: no focal deficits or acute changes A/P: This is a 24-year-old male admitted for transverse myelitis treated with IVIG and Solu-Medrol 1 g/day that is now being tapered down steroids, continuing in physical therapy and making gradual progress. 1. 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 Continue Solu-Medrol taper as per neuro along with GI prophylaxis. Infectious disease is following as well and recommends continuing Bactrim for PCP prophylaxis, especially in light of immunosuppression from chronic steroid use. He is also on ceftriaxone for possible Lyme given borderline positive serology. Continue rehabilitation and encouragement and support. Patient otherwise doing well. Will continue to follow along. No med changes made today. DVT ppx: ambulate with rehab GI ppx: po protonix DISPO: pending clinical improvement. Continue therapy. VS,Fishbone, I+O VS, Fishbone, I+O Vital Signs Date Time Temp Pulse Resp B/P (MAP) Pulse Ox O2 Delivery O2 Flow Rate FiO2 09/03/19 06:00 98.2 72 19 116/53 (74) 97 Room Air I&O- Last 24 Hours up to 6 AM 09/03/19 06:00 Intake Total 1760 ml Balance 1760 ml GME ATTESTATION GME ATTESTATION My faculty preceptor for this patient encounter was physically present during the encounter and was fully available. All aspects of the patient interview, examination, medical decision making process, and medical care plan development were reviewed and approved by the faculty preceptor. The faculty preceptor is aware and concurs with the plan as stated in the body of this note and will attest to such by his/her cosignature. MARKO SLADE DO Sep 03, 2019 14:19
--- NOTE | 2019-09-03 17:04 | IPNPDOC ---
PM&R Progress Note DATE OF SERVICE: Sep 03, 2019 Senior Principal Process Engineer Progress Note Subjective: Patient seen in the gym stating he is walking further and feeling stronger. REVIEW OF SYSTEMS: The following is a completed review of systems and has been reviewed. Review of systems otherwise unremarkable. PAIN: Patient self reports no pain EYES: No recent vision changes EARS, NOSE, & THROAT: No throat pain, or dysphagia, or rhinorrhea CARDIOVASCULAR: Denies chest pain or palpitations PULMONARY: Denies shortness of breath GASTROINTESTINAL: +fecal retention (improving) GENITOURINARY: +urinary retention (improving) MUSCULOSKELETAL: weakness in all 4 limbs NEUROLOGICAL:+ paresthesias HEMATOLOGICAL: denies easy bruising SKIN: denies rash PSYCHIATRIC: Unremarkable All other review of systems found to be negative. PHYSICAL EXAMINATION: VITAL SIGNS: Please see below. GENERAL: Pleasant and cooperative. No acute distress. HEENT: PERRL. Extraocular movements intact. Clear conjunctiva CARDIOVASCULAR: Regular rate and rhythm. No murmurs, rubs, or gallops LUNGS: Clear to auscultation bilaterally. No wheezes. No rhonchi ABDOMEN: Soft, nontender, nondistended. Positive bowel sounds. Normal active bowel sounds NEUROLOGICAL: Alert and oriented times three. Cranial nerves II through XII grossly intact. sensation intact to light touch and pinprick C2-C3, otherwise altered/diminished caudally (-) babinksi bilat MSK: 5/5 bilat UE, right LE 3/5 HF/KE/ankle DF/EHL and 4/5 PF- left LE 3/5 HF/KE/Ankle DF, EH, 4/5 PF CELESTINE Spinal Cord exam- C3 Motor Incomplete CELESTINE D EXT: (-) Wanda's bilat SKIN: no rash ASSESSMENT:24-year-old M with no significant past medical history who presents status post acute transverse myelitis with spinal cord injury PLAN: 1. Rehab- PT advance transfers, strengthen/stretch/maintain ROM bilat LE- multipodus boots while in bed- room privileges from w/c level-able to ambulate short distances with RW OT- advance ADL management, bed mobility, dressing, bathing, shoulder protection exercises 2. Neuro: recently diagnosed transverse myelitis extending from C3 to lumbar region, patient with incomplete quadriplegia-C3 Motor Incomplete CELESTINE D -monitor for decline in function, will consult neurology prn-thus far improving -s/p IVIG, s/p IV Solumedrol for a total of 10 days since initiated on inpatient to be followed by slow oral taper- on Bactrim for PCP ppx while on steroids -monitor for autonomic dysreflexia -leukocytosis likely due to steroids, afebrile 3. cardiac: no known Hx, patient with bradycardia likely due to active lifestyle 4. resp: encourage incentive spirometry, monitor for infection 5. GI: neurogenic bowel, c/u daily bowel regimen, colace/senna/suppository +digital stimulation to trigger recto-colic reflex, patient able to initiate bowel movements on his own -Protonix for ppx 6. DVT ppx: Lovenox and TEDs 7. : d/c [facility] 08-05-19, patient able to void on own 8. Skin: turn q2 while in bed, barrier cream to sacrum, educate patient on weight shifting every 30 minutes while seated, offload heels 9. Pain: c/u tylenol standing, c/u gabapentin 400mg TID patient reporting he feels his paresthesias are improving 10. ID: infectious work-up to date negative, however given +RPR with [address] 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 Kassy hurt greatly appreciated 11. Dispo: 09-10-19 to home, progressing towards goals Allergies Coded Allergies: No Known Allergies (Unverified , 03/20/18) Vital Signs Vital Signs Date Time Temp Pulse Resp B/P (MAP) Pulse Ox O2 Delivery O2 Flow Rate FiO2 09/03/19 14:00 98.4 67 18 144/65 (91) 95 Room Air Current Medications Current Medications Current Medications Medications (Trade) Dose Ordered Sig/Rodrigo Route PRN Reason Start Time Stop Time Status Last Admin Dose Admin Acetaminophen (Tylenol Tab) 650 mg Q4HP PRN PO fever/ PAIN 08/22/19 14:45 08/30/19 12:27 DC 08/28/19 11:29 Acetaminophen (Tylenol Tab) 975 mg TID PO 08/30/19 09:00 09/03/19 09:35 Bisacodyl (Dulcolax Suppository) 10 mg QHS ME 08/22/19 21:00 2/20 10:30 Ceftriaxone Sodium 2 gm/ Dextrose 50 ml @ 100 mls/hr Q24H IV 08/27/19 16:45 09/01/19 16:44 DC 08/31/19 16:16 Ceftriaxone Sodium 2 gm/ Dextrose 50 ml @ 100 mls/hr Q24H IV 09/02/19 16:00 09/02/19 16:01 Docusate Sodium (Colace) 100 mg TID PO 08/22/19 16:00 08/24/19 15:07 DC 08/24/19 09:07 Docusate Sodium (Colace) 200 mg TID PO 08/24/19 16:00 09/03/19 09:34 Enoxaparin Sodium (Lovenox) 40 mg DAILY SC 08/23/19 09:00 08/29/19 08:26 Gabapentin (Neurontin) 200 mg TID PO 08/30/19 09:00 09/02/19 12:13 DC 09/02/19 09:03 Gabapentin (Neurontin) 400 mg TID PO 09/02/19 16:00 09/03/19 09:34 Lactobacillus Acidophilus (Bacid) 1 ea TID PO 08/27/19 21:00 09/03/19 09:34 Lidocaine HCl (Lidocaine 2% Urojet) 1 dose ASDIRECTED PRN TOP FOR EACH CATHETERIZATION 08/26/19 11:45 Methylprednisolone 1000 mg/IV Miscellaneous Supplies 1 each/ Dextrose 266 ml @ 266 mls/hr DAILY IV 08/23/19 09:00 08/25/19 09:59 DC 08/25/19 09:59 Pantoprazole Sodium (Protonix) 40 mg DAILY PO 08/23/19 09:00 09/03/19 09:34 Prednisone (Deltasone) 10 mg DAILY PO 09/30/19 09:00 10/06/19 09:01 Prednisone (Deltasone) 10 mg Q2D PO 10/07/19 09:00 Prednisone (Deltasone) 20 mg DAILY PO 08/26/19 09:00 08/23/19 09:22 DC Prednisone (Deltasone) 20 mg DAILY PO 09/23/19 09:00 09/29/19 09:01 Prednisone (Deltasone) 40 mg DAILY PO 09/16/19 09:00 09/22/19 09:01 Prednisone (Deltasone) 60 mg DAILY PO 09/09/19 09:00 09/15/19 09:01 Prednisone (Deltasone) 80 mg DAILY PO 09/02/19 09:00 09/08/19 09:01 09/03/19 09:34 Prednisone (Deltasone) 100 mg DAILY PO 08/26/19 09:00 09/01/19 09:01 DC 09/01/19 08:25 Senna (Senokot) 1 tab ASDIRECTED PO 08/22/19 14:45 08/24/19 15:08 DC 08/22/19 18:13 Senna (Senokot) 1 tab DAILY@1200 PO 08/24/19 12:00 09/03/19 14:00 Senna (Senokot) 1 tab DAILYPRN PRN PO CONSTIPATION 08/24/19 15:15 08/25/19 20:27 Trimethoprim/ Sulfamethoxazole (Bactrim Ds, Septra Ds 160mg/ 800mg) 1 tab MoWeFr@09 PO 08/23/19 09:00 09/02/19 09:04 NIKKI BUENROSTRO MD Sep 03, 2019 17:04
[2019-09-03] MEDS: cefTRIAXone SOD 2 GM in D5W MINI-BAG PLUS 50 ML IV SCH (17:53)
[2019-09-03] MEDS: BISACODYL 10 MG SUPP PR SCH (21:00)
[2019-09-03 21:04] VITALS: BP 135/60
[2019-09-04 05:48] VITALS: BP 126/56
[2019-09-04] MEDS: REMEDY PHYTOPLEX Z-GUARD PASTE 113GM TUBE (FROM STOREROOM PRODUCT) TOP SCH ×3 (09:00→21:00)
[2019-09-04] MEDS: ENOXAPARIN 40 MG/0.4 ML SYRINGE (J1650) SC SCH ×2 (09:00→09:36)
[2019-09-04] MEDS: PANTOPRAZOLE 40MG TAB (PROTONIX) PO SCH (09:36)
[2019-09-04] MEDS: GABAPENTIN 100 MG CAP PO SCH ×3 (09:36→21:14)
[2019-09-04] MEDS: BACTRIM 160MG/800MG DS TAB PO SCH (09:36)
[2019-09-04] MEDS: DOCUSATE SODIUM 100 MG CAP PO SCH ×3 (09:36→21:13)
[2019-09-04] MEDS: ACETAMINOPHEN 325 MG TAB PO SCH ×3 (09:37→21:13)
[2019-09-04] MEDS: predniSONE 20 MG TAB PO SCH (09:37)
[2019-09-04] MEDS: LACTOBACILLUS ACIDOPHILUS CAP (BACID) PO SCH ×3 (09:37→21:14)
[2019-09-04] MEDS: SENNA 8.6 MG TAB (SENOKOT) PO SCH (12:59)
[2019-09-04 14:00] VITALS: BP 127/60
--- NOTE | 2019-09-04 15:23 | IPNPDOC ---
PM&R Progress Note DATE OF SERVICE: Sep 04, 2019 Corporate Financial Analyst Progress Note Subjective: Patient asking for his gabapentin dosing to be lowered stating his legs started to feel funny this morning after taking the higher dose. REVIEW OF SYSTEMS: The following is a completed review of systems and has been reviewed. Review of systems otherwise unremarkable. PAIN: Patient self reports no pain EYES: No recent vision changes EARS, NOSE, & THROAT: No throat pain, or dysphagia, or rhinorrhea CARDIOVASCULAR: Denies chest pain or palpitations PULMONARY: Denies shortness of breath GASTROINTESTINAL: +fecal retention (improving) GENITOURINARY: +urinary retention (improving) MUSCULOSKELETAL: weakness in all 4 limbs NEUROLOGICAL:+ paresthesias HEMATOLOGICAL: denies easy bruising SKIN: denies rash PSYCHIATRIC: Unremarkable All other review of systems found to be negative. PHYSICAL EXAMINATION: VITAL SIGNS: Please see below. GENERAL: Pleasant and cooperative. No acute distress. HEENT: PERRL. Extraocular movements intact. Clear conjunctiva CARDIOVASCULAR: Regular rate and rhythm. No murmurs, rubs, or gallops LUNGS: Clear to auscultation bilaterally. No wheezes. No rhonchi ABDOMEN: Soft, nontender, nondistended. Positive bowel sounds. Normal active bowel sounds NEUROLOGICAL: Alert and oriented times three. Cranial nerves II through XII grossly intact. sensation intact to light touch and pinprick C2-C3, otherwise altered/diminished caudally (-) babinksi bilat MSK: 5/5 bilat UE, right LE 3/5 HF/KE/ankle DF/EHL and 4/5 PF- left LE 3/5 HF/KE/Ankle DF, EH, 4/5 PF CELESTINE Spinal Cord exam- C3 Motor Incomplete CELESTINE D EXT: (-) Wanda's bilat SKIN: no rash ASSESSMENT:24-year-old M with no significant past medical history who presents status post acute transverse myelitis with spinal cord injury PLAN: 1. Rehab- PT advance transfers, strengthen/stretch/maintain ROM bilat LE- multipodus boots while in bed- room privileges from w/c level-able to ambulate short distances with RW OT- advance ADL management, bed mobility, dressing, bathing, shoulder protection exercises 2. Neuro: recently diagnosed transverse myelitis extending from C3 to lumbar region, patient with incomplete quadriplegia-C3 Motor Incomplete CELESTINE D -monitor for decline in function, will consult neurology prn-thus far improving -s/p IVIG, s/p IV Solumedrol for a total of 10 days since initiated on inpatient to be followed by slow oral taper- on Bactrim for PCP ppx while on steroids -monitor for autonomic dysreflexia -leukocytosis likely due to steroids, afebrile 3. cardiac: no known Hx, patient with bradycardia likely due to active lifestyle 4. resp: encourage incentive spirometry, monitor for infection 5. GI: neurogenic bowel, c/u daily bowel regimen, colace/senna/suppository +digital stimulation to trigger recto-colic reflex, patient able to initiate bowel movements on his own -Protonix for ppx 6. DVT ppx: Lovenox and TEDs 7. : d/c [facility] 08-05-19, patient able to void on own 8. Skin: turn q2 while in bed, barrier cream to sacrum, educate patient on weight shifting every 30 minutes while seated, offload heels 9. Pain: c/u tylenol standing,decrease gabapentin back down to 200mg TID patient reporting he feels his paresthesias are improving, but feels off with the higher dose of gabapentin 10. ID: infectious work-up to date negative, however given +RPR with [address] 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 Elena recyolanda greatly appreciated 11. Dispo: 09-10-19 to home, progressing towards goals Allergies Coded Allergies: No Known Allergies (Unverified , 03/20/18) Vital Signs Vital Signs Date Time Temp Pulse Resp B/P (MAP) Pulse Ox O2 Delivery O2 Flow Rate FiO2 09/04/19 14:00 98.5 82 18 127/60 (82) 97 Room Air Current Medications Current Medications Current Medications Medications (Trade) Dose Ordered Sig/Rodrigo Route PRN Reason Start Time Stop Time Status Last Admin Dose Admin Acetaminophen (Tylenol Tab) 650 mg Q4HP PRN PO fever/ PAIN 08/22/19 14:45 08/30/19 12:27 DC 08/28/19 11:29 Acetaminophen (Tylenol Tab) 975 mg TID PO 08/30/19 09:00 09/04/19 09:37 Bisacodyl (Dulcolax Suppository) 10 mg QHS DC 08/22/19 21:00 08/25/19 10:30 Ceftriaxone Sodium 2 gm/ Dextrose 50 ml @ 100 mls/hr Q24H IV 08/27/19 16:45 09/01/19 16:44 DC 08/31/19 16:16 Ceftriaxone Sodium 2 gm/ Dextrose 50 ml @ 100 mls/hr Q24H IV 09/02/19 16:00 09/03/19 17:53 Docusate Sodium (Colace) 100 mg TID PO 08/22/19 16:00 08/24/19 15:07 DC 08/24/19 09:07 Docusate Sodium (Colace) 200 mg TID PO 08/24/19 16:00 09/04/19 09:36 Enoxaparin Sodium (Lovenox) 40 mg DAILY SC 08/23/19 09:00 08/29/19 08:26 Gabapentin (Neurontin) 200 mg TID PO 08/30/19 09:00 09/02/19 12:13 DC 09/02/19 09:03 Gabapentin (Neurontin) 200 mg TID PO 09/04/19 16:00 Gabapentin (Neurontin) 400 mg TID PO 09/02/19 16:00 09/04/19 10:17 DC 09/04/19 09:36 Lactobacillus Acidophilus (Bacid) 1 ea TID PO 08/27/19 21:00 09/04/19 09:37 Lidocaine HCl (Lidocaine 2% Urojet) 1 dose ASDIRECTED PRN TOP FOR EACH CATHETERIZATION 08/26/19 11:45 Methylprednisolone 1000 mg/IV Miscellaneous Supplies 1 each/ Dextrose 266 ml @ 266 mls/hr DAILY IV 08/23/19 09:00 08/25/19 09:59 DC 08/25/19 09:59 Pantoprazole Sodium (Protonix) 40 mg DAILY PO 08/23/19 09:00 09/04/19 09:36 Prednisone (Deltasone) 10 mg DAILY PO 09/30/19 09:00 10/06/19 09:01 Prednisone (Deltasone) 10 mg Q2D PO 10/07/19 09:00 Prednisone (Deltasone) 20 mg DAILY PO 08/26/19 09:00 08/23/19 09:22 DC Prednisone (Deltasone) 20 mg DAILY PO 09/23/19 09:00 09/29/19 09:01 Prednisone (Deltasone) 40 mg DAILY PO 09/16/19 09:00 09/22/19 09:01 Prednisone (Deltasone) 60 mg DAILY PO 09/09/19 09:00 09/15/19 09:01 Prednisone (Deltasone) 80 mg DAILY PO 09/02/19 09:00 09/08/19 09:01 09/04/19 09:37 Prednisone (Deltasone) 100 mg DAILY PO 08/26/19 09:00 09/01/19 09:01 DC 09/01/19 08:25 Senna (Senokot) 1 tab ASDIRECTED PO 08/22/19 14:45 08/24/19 15:08 DC 08/22/19 18:13 Senna (Senokot) 1 tab DAILY@1200 PO 08/24/19 12:00 09/04/19 12:59 Senna (Senokot) 1 tab DAILYPRN PRN PO CONSTIPATION 08/24/19 15:15 08/25/19 20:27 Trimethoprim/ Sulfamethoxazole (Bactrim Ds, Septra Ds 160mg/ 800mg) 1 tab MoWeFr@09 PO 08/23/19 09:00 09/04/19 09:36 NIKKI BUENROSTRO MD Sep 04, 2019 15:23
[2019-09-04] MEDS: cefTRIAXone SOD 2 GM in D5W MINI-BAG PLUS 50 ML IV SCH (15:47)
[2019-09-04] MEDS: BISACODYL 10 MG SUPP PR SCH (21:00)
[2019-09-04 21:13] VITALS: BP 143/77
[2019-09-05 05:52] VITALS: BP 102/53
[2019-09-05 07:06] LABS: HEMATOCRIT 35.7 % (42.0-52.0); HEMOGLOBIN 12.2 g/dl (13.5-17.5); MEAN CORPUSCULAR HEMOGLOBIN 31.9 pg (27.0-33.0); MEAN CORPUSCULAR HGB CONC 34.2 g/dl (32.0-36.5); MEAN CORPUSCULAR VOLUME 93.2 fl (80.0-96.0); PLATELET COUNT, AUTOMATED 231 10^3/uL (150-450); RED BLOOD COUNT 3.83 10^6/uL (4.30-6.10); WHITE BLOOD COUNT 11.2 10^3/uL (4.0-10.0)
[2019-09-05 07:34] LABS: BLOOD UREA NITROGEN 18 MG/DL (7-18); CALCIUM LEVEL 8.6 MG/DL (8.5-10.1); CARBON DIOXIDE LEVEL 29 MEQ/L (21-32); CHLORIDE LEVEL 106 MEQ/L (98-107); CREATININE FOR GFR 0.67 MG/DL (0.70-1.30); GLOMERULAR FILTRATION RATE > 60.0 (>60); GLUCOSE, FASTING 82 MG/DL (70-100); POTASSIUM SERUM 3.9 MEQ/L (3.5-5.1); SODIUM LEVEL 140 MEQ/L (136-145)
[2019-09-05] MEDS: REMEDY PHYTOPLEX Z-GUARD PASTE 113GM TUBE (FROM STOREROOM PRODUCT) TOP SCH ×3 (09:00→21:00)
[2019-09-05] MEDS: ENOXAPARIN 40 MG/0.4 ML SYRINGE (J1650) SC SCH ×2 (09:00→09:32)
[2019-09-05] MEDS ORDERED: GABAPENTIN 100 MG CAP PO SCH (09:00)
[2019-09-05] MEDS: LACTOBACILLUS ACIDOPHILUS CAP (BACID) PO SCH ×3 (09:31→21:06)
[2019-09-05] MEDS: DOCUSATE SODIUM 100 MG CAP PO SCH ×3 (09:31→21:05)
[2019-09-05] MEDS: GABAPENTIN 100 MG CAP PO SCH ×2 (09:31→16:09)
[2019-09-05] MEDS: predniSONE 20 MG TAB PO SCH (09:31)
[2019-09-05] MEDS: PANTOPRAZOLE 40MG TAB (PROTONIX) PO SCH (09:32)
[2019-09-05] MEDS: ACETAMINOPHEN 325 MG TAB PO SCH ×3 (09:32→21:06)
[2019-09-05] MEDS: SENNA 8.6 MG TAB (SENOKOT) PO SCH (12:40)
--- NOTE | 2019-09-05 13:41 | REP ---
Clinical: Immobility . Technique: Rios scale and color Doppler evaluation of the bilateral lower extremities using linear high frequency transducer. Findings: Ultrasound examination of the right and left lower extremity deep venous structures from the common femoral vein to the popliteal vein demonstrates normal compressibility flow and wave patterns in response to respiration and augmentation. There is no evidence for deep venous thrombosis. Impression: No evidence for deep venous thrombosis. Electronically Signed by Yuniel Mathew MD 09/05/2019 01:33 P
[2019-09-05 14:00] VITALS: BP 131/62
[2019-09-05] MEDS: cefTRIAXone SOD 2 GM in D5W MINI-BAG PLUS 50 ML IV SCH (16:09)
[2019-09-05 20:00] VITALS: BP 144/67
[2019-09-05] MEDS: BISACODYL 10 MG SUPP PR SCH (21:00)
[2019-09-05] MEDS: GABAPENTIN 300 MG CAP PO SCH (21:06)
[2019-09-06 06:00] VITALS: BP 117/53
[2019-09-06] MEDS: LACTOBACILLUS ACIDOPHILUS CAP (BACID) PO SCH ×3 (08:58→21:51)
[2019-09-06] MEDS: predniSONE 20 MG TAB PO SCH (08:59)
[2019-09-06] MEDS: GABAPENTIN 100 MG CAP PO SCH ×2 (08:59→16:50)
[2019-09-06] MEDS: BACTRIM 160MG/800MG DS TAB PO SCH (08:59)
[2019-09-06] MEDS: DOCUSATE SODIUM 100 MG CAP PO SCH ×3 (08:59→21:51)
[2019-09-06] MEDS: REMEDY PHYTOPLEX Z-GUARD PASTE 113GM TUBE (FROM STOREROOM PRODUCT) TOP SCH ×3 (09:00→21:00)
[2019-09-06] MEDS: ACETAMINOPHEN 325 MG TAB PO SCH ×3 (09:00→21:52)
[2019-09-06] MEDS: PANTOPRAZOLE 40MG TAB (PROTONIX) PO SCH (09:00)
[2019-09-06] MEDS: ENOXAPARIN 40 MG/0.4 ML SYRINGE (J1650) SC SCH (09:00)
[2019-09-06] MEDS: SENNA 8.6 MG TAB (SENOKOT) PO SCH (11:14)
[2019-09-06 14:00] VITALS: BP 135/60
[2019-09-06] MEDS: cefTRIAXone SOD 2 GM in D5W MINI-BAG PLUS 50 ML IV SCH (16:47)
[2019-09-06 20:00] VITALS: BP 138/66
[2019-09-06] MEDS: BISACODYL 10 MG SUPP PR SCH (21:00)
[2019-09-06] MEDS: GABAPENTIN 300 MG CAP PO SCH (21:52)
[2019-09-07 07:01] VITALS: BP 108/54
[2019-09-07] MEDS: LACTOBACILLUS ACIDOPHILUS CAP (BACID) PO SCH ×3 (08:58→21:06)
[2019-09-07] MEDS: ENOXAPARIN 40 MG/0.4 ML SYRINGE (J1650) SC SCH ×2 (08:58→09:00)
[2019-09-07] MEDS: PANTOPRAZOLE 40MG TAB (PROTONIX) PO SCH (08:58)
[2019-09-07] MEDS: DOCUSATE SODIUM 100 MG CAP PO SCH ×3 (08:58→21:07)
[2019-09-07] MEDS: predniSONE 20 MG TAB PO SCH (08:59)
[2019-09-07] MEDS: GABAPENTIN 100 MG CAP PO SCH ×2 (08:59→15:19)
[2019-09-07] MEDS: ACETAMINOPHEN 325 MG TAB PO SCH ×3 (08:59→21:06)
[2019-09-07] MEDS: REMEDY PHYTOPLEX Z-GUARD PASTE 113GM TUBE (FROM STOREROOM PRODUCT) TOP SCH ×3 (09:00→21:00)
[2019-09-07] MEDS: SENNA 8.6 MG TAB (SENOKOT) PO SCH (11:29)
[2019-09-07 14:00] VITALS: BP 120/64
[2019-09-07] MEDS: cefTRIAXone SOD 2 GM in D5W MINI-BAG PLUS 50 ML IV SCH (15:19)
[2019-09-07] MEDS: BISACODYL 10 MG SUPP PR SCH (21:00)
[2019-09-07] MEDS: GABAPENTIN 300 MG CAP PO SCH (21:06)
[2019-09-07 21:23] VITALS: BP 131/59
[2019-09-08 05:46] VITALS: BP 124/53
[2019-09-08] MEDS: ENOXAPARIN 40 MG/0.4 ML SYRINGE (J1650) SC SCH (07:19)
[2019-09-08] MEDS: LACTOBACILLUS ACIDOPHILUS CAP (BACID) PO SCH ×3 (07:37→22:14)
[2019-09-08] MEDS: DOCUSATE SODIUM 100 MG CAP PO SCH ×3 (07:37→22:14)
[2019-09-08] MEDS: PANTOPRAZOLE 40MG TAB (PROTONIX) PO SCH (07:37)
[2019-09-08] MEDS: ACETAMINOPHEN 325 MG TAB PO SCH ×3 (07:37→22:14)
[2019-09-08] MEDS: predniSONE 20 MG TAB PO SCH (07:37)
[2019-09-08] MEDS: GABAPENTIN 100 MG CAP PO SCH ×2 (07:37→15:11)
[2019-09-08] MEDS: REMEDY PHYTOPLEX Z-GUARD PASTE 113GM TUBE (FROM STOREROOM PRODUCT) TOP SCH ×3 (07:37→21:00)
[2019-09-08 08:09] LABS: BASO % 0.2 % (0.0-1.0); EOS # 0.1 10^3/uL (0.0-0.5); EOS % 1.1 % (0.0-3.0); HEMATOCRIT 38.3 % (42.0-52.0); HEMOGLOBIN 13.2 g/dl (13.5-17.5); LYMPH # 2.9 10^3/uL (1.5-5.0); LYMPH % 31.5 % (24.0-44.0); MEAN CORPUSCULAR HEMOGLOBIN 31.8 pg (27.0-33.0); MEAN CORPUSCULAR HGB CONC 34.5 g/dl (32.0-36.5); MEAN CORPUSCULAR VOLUME 92.3 fl (80.0-96.0); MONO # 0.6 10^3/uL (0.0-0.8); MONO % 6.7 % (0.0-5.0); NEUTROPHILS # 5.6 10^3/uL (1.5-8.5); NEUTROPHILS % 60.1 % (36.0-66.0); PLATELET COUNT, AUTOMATED 235 10^3/uL (150-450); RED BLOOD COUNT 4.15 10^6/uL (4.30-6.10); WHITE BLOOD COUNT 9.3 10^3/uL (4.0-10.0)
[2019-09-08 08:24] LABS: BLOOD UREA NITROGEN 17 MG/DL (7-18); CALCIUM LEVEL 8.7 MG/DL (8.5-10.1); CARBON DIOXIDE LEVEL 29 MEQ/L (21-32); CHLORIDE LEVEL 105 MEQ/L (98-107); GLOMERULAR FILTRATION RATE > 60.0 (>60); GLUCOSE, FASTING 84 MG/DL (70-100); POTASSIUM SERUM 3.5 MEQ/L (3.5-5.1); SODIUM LEVEL 140 MEQ/L (136-145)
[2019-09-08] MEDS: SENNA 8.6 MG TAB (SENOKOT) PO SCH (11:00)
[2019-09-08 14:00] VITALS: BP 138/66
[2019-09-08] MEDS: cefTRIAXone SOD 2 GM in D5W MINI-BAG PLUS 50 ML IV SCH (15:10)
[2019-09-08 20:00] VITALS: BP 102/50
[2019-09-08] MEDS: BISACODYL 10 MG SUPP PR SCH (21:00)
[2019-09-08] MEDS: GABAPENTIN 300 MG CAP PO SCH (22:13)
[2019-09-09 06:00] VITALS: BP 116/53
[2019-09-09] MEDS: ENOXAPARIN 40 MG/0.4 ML SYRINGE (J1650) SC SCH (09:00)
[2019-09-09] MEDS: REMEDY PHYTOPLEX Z-GUARD PASTE 113GM TUBE (FROM STOREROOM PRODUCT) TOP SCH (09:00)
[2019-09-09] MEDS ORDERED: predniSONE 20 MG TAB PO SCH (09:00)
[2019-09-09] MEDS: LACTOBACILLUS ACIDOPHILUS CAP (BACID) PO SCH (09:02)
[2019-09-09] MEDS: BACTRIM 160MG/800MG DS TAB PO SCH (09:03)
[2019-09-09] MEDS: PANTOPRAZOLE 40MG TAB (PROTONIX) PO SCH (09:03)
[2019-09-09] MEDS: DOCUSATE SODIUM 100 MG CAP PO SCH (09:03)
[2019-09-09] MEDS: GABAPENTIN 100 MG CAP PO SCH (09:03)
[2019-09-09] MEDS: ACETAMINOPHEN 325 MG TAB PO SCH (09:04)
[2019-09-09] MEDS ORDERED: DOCU100C16 PO (10:22)
[2019-09-09] MEDS ORDERED: GABA-1171 PO (10:22)
[2019-09-09] MEDS ORDERED: BISA10SU PR (10:22)
[2019-09-09] MEDS ORDERED: SENN18TA PO (10:22)
[2019-09-09] MEDS ORDERED: GABA-843 PO (10:22)
[2019-09-09] MEDS ORDERED: RISATAB3 PO (10:22)
[2019-09-09] MEDS ORDERED: SULF1TAB93 PO (10:22)
[2019-09-09] MEDS ORDERED: DOXY-350 PO (10:25)
[2019-09-09] MEDS ORDERED: PRED20TA PO (10:47)
[2019-09-09] MEDS ORDERED: ENEMCAP PR (10:47)
[2019-09-09] MEDS ORDERED: PRED10TA2 PO ×2 (10:47)
[2019-09-09] MEDS ORDERED: DOXYCYCLINE HYCLATE 100 MG TAB PO SCH (12:00)
[2019-09-09] MEDS: SENNA 8.6 MG TAB (SENOKOT) PO SCH (12:21)
[2019-09-16] MEDS ORDERED: predniSONE 20 MG TAB PO SCH (09:00)
[2019-09-23] MEDS ORDERED: predniSONE 20 MG TAB PO SCH (09:00)
[2019-09-30] MEDS ORDERED: predniSONE 10 MG TAB PO SCH (09:00)
--- NOTE | 2019-10-01 15:46 | PMRDS ---
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 Thoracic and Cervical MRI showed T2 hyperintense signals throughout the spinal cord from C3 to the lumbar region with cauda equine enhancement. There was new concern that his condition was due to transverse myelitis for which he was started on IV steroids. Infectious disease was consulted, CSF PCR for meningitis/encephalitis panel was negative, Mycoplasma work-up was negative for active infection, and Lyme disease ruled out. 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 He was evaluated by therapy, found to have impairments in mobility and ADLs and deemed medically appropriate for discharge to ARU on 08-22-19. Please insert HPI from H and P. PAST MEDICAL HISTORY: As per HPI. HOSPITAL COURSE: The patient was admitted and enrolled in a comprehensive physical therapy (PT), occupational therapy (OT) program. He received 24-hour nursing supervision and weekly team meetings were held to discuss his progress. The patient finished up a course of IV Solu-Medrol and was placed on a slow oral steroid taper and in addition was started on Bactrim for PCP prophylaxis. He was followed closely by infectious disease who began treatment for suspected line induced transverse myelitis with the initiation of Rocephin ultimately switched to oral doxycycline on discharge. The patient initially had urinary and fecal retention, however this gradually improved during his hospital course. He complained of neuropathic pain and was started on gabapentin and made significant gains in therapy. He was deemed medically and functionally stable to return home. DISCHARGE MEDICATIONS: As per instructions. FUNCTIONAL HISTORY: On discharge, the patient was modified independent, able to ambulate 300 feet with a rolling walker. In occupational therapy, he was modified dependent for bed mobility and functional transfers in addition to showering. Thank you for this referral.
[2019-10-07] MEDS ORDERED: predniSONE 10 MG TAB PO SCH (09:00)
== END 2019-09-09 13:40 | disposition home health service (06) | DRG 40 ==
LOC: M PM&R 17:11
PROVIDERS: ADMIT Physical Medicine & Rehabilitation; ATTEND Physical Medicine & Rehabilitation
DX: G82.20 Paraplegia, unspecified (principal); K59.2 Neurogenic bowel, not elsewhere classified; R26.89 Other abnormalities of gait and mobility; R53.1 Weakness; R33.9 Retention of urine, unspecified; R00.1 Bradycardia, unspecified; Z79.899 Other long term (current) drug therapy; I69.341 Monoplegia of lower limb following cerebral infarction affecting right dominant side; G37.3 Acute transverse myelitis in demyelinating disease of central nervous system

== ENCOUNTER 2019-10-10 10:00 | Outpatient (RCR) | payer OTHER ==
[~2019-10-10 10:00] MED LIST changes: +BISA10SU PR; +DOXY-350 PO; +ENEMCAP PR; +GABA-843 PO; +PRED10TA2 PO; +PRED20TA PO; +RISATAB3 PO; +SENN18TA PO; +SULF1TAB93 PO
== END 2019-10-15 ==
LOC: M PT 10:00
PROVIDERS: ATTEND Internal Medicine Pulmonary Disease
DX: Z51.89 Encounter for other specified aftercare (principal); G82.52 Quadriplegia, C1-C4 incomplete

== ENCOUNTER → 2020-05-31 | Outpatient (REF) | payer OTHER | LOC: M WUC 10:03 | PROVIDERS: ATTEND Physician Assistant | DX: R30.0 Dysuria (principal) ==

== ENCOUNTER → 2020-06-02 | Outpatient (CLI) | payer OTHER ==
[2020-06-02 17:24] LABS: HEPATITIS B CORE ANTIBODY IGM NEGATIVE (NEGATIVE); HEPATITIS B SURFACE ANTIBODY NEGATIVE (POSITIVE); HEPATITIS B SURFACE ANTIGEN NEGATIVE (NEGATIVE); HEPATITIS C VIRUS ABY INDEX < 0.0 INDEX (<0.8)
[2020-06-04 19:07] LABS: HSV IgM TYPES 1&2 <0.91 Ratio (0.00-0.90)
== END ==
LOC: M WUC 14:00
PROVIDERS: ATTEND Physician Assistant
DX: R30.0 Dysuria (principal)

== ENCOUNTER → 2020-06-02 | Outpatient (REF) | payer OTHER ==
[2020-06-02 17:50] LABS: CHLAMYDIA DNA AMPLIFICATION NEGATIVE (NEGATIVE); GC DNA AMPLIFICATION NEGATIVE (NEGATIVE)
== END ==
LOC: M LAB REF 15:01
PROVIDERS: ATTEND Physician Assistant
DX: R30.0 Dysuria (principal)

== ENCOUNTER → 2021-09-10 | Outpatient (CLI) | payer OTHER ==
[~2021-09-10] MED LIST changes: +BACTDSTA PO; +GABA-282 PO; -GABA-843 PO; -SULF1TAB93 PO
[2021-09-10 13:53] LABS: BLOOD UREA NITROGEN 10 MG/DL (7-18); CALCIUM LEVEL 9.3 MG/DL (8.5-10.1); CARBON DIOXIDE LEVEL 32 MEQ/L (21-32); CHLORIDE LEVEL 106 MEQ/L (98-107); CREATININE FOR GFR 0.86 MG/DL (0.70-1.30); GLOMERULAR FILTRATION RATE > 60.0 (>60); GLUCOSE, FASTING 91 MG/DL (70-100); MAGNESIUM LEVEL 2.1 MG/DL (1.8-2.4); POTASSIUM SERUM 4.7 MEQ/L (3.5-5.1); SODIUM LEVEL 140 MEQ/L (136-145)
== END ==
LOC: M PLALAB 11:51
PROVIDERS: ATTEND Student in an Organized Health Care Education/Training Program
DX: M62.838 Other muscle spasm (principal); G37.3 Acute transverse myelitis in demyelinating disease of central nervous system

== ENCOUNTER → 2021-09-10 | Outpatient (REF) | payer OTHER | LOC: M SFHCPLAZ 11:39 | PROVIDERS: ATTEND Family Medicine | DX: M62.838 Other muscle spasm (principal); G37.3 Acute transverse myelitis in demyelinating disease of central nervous system; Z53.8 Procedure and treatment not carried out for other reasons ==

== ENCOUNTER → 2021-10-11 | Outpatient (CLI) | payer OTHER ==
[2021-10-11 21:37] LABS: FOLATE 10.4 NG/ML; TOTAL 25(OH) VITAMIN D 12.8 NG/ML (30.0-100.0)
== END ==
LOC: M WUC 15:16
PROVIDERS: ATTEND Psychiatry & Neurology Neurology
DX: G37.3 Acute transverse myelitis in demyelinating disease of central nervous system (principal)

== ENCOUNTER 2021-11-16 18:30 | Emergency (ER) | payer OTHER ==
[~2021-11-16] VITALS: Ht 182.9 cm; Wt 68.1 kg
[2021-11-16 20:10] LABS: RSV AMPLIFICATION NEGATIVE (NEGATIVE)
[2021-11-16] MEDS ORDERED: ACETAMINOPHEN 500 MG TAB PO ONE (21:40)
[2021-11-16 22:06] LABS: APPEARANCE, URINE CLEAR (CLEAR); BACTERIA, URINE AUTO NEGATIVE (NEGATIVE); BILIRUBIN, URINE AUTO NEGATIVE (NEGATIVE); BLOOD, URINE BLOOD NEGATIVE (NEGATIVE); COLOR, URINE YELLOW (YELLOW); GLUCOSE, URINE (UA) AUTO NEGATIVE (NEGATIVE); KETONE, URINE AUTO 1+ mg/dL (NEGATIVE); LEUKOCYTE ESTERASE, URINE AUTO NEGATIVE (NEGATIVE); MUCUS, URINE SMALL (NEGATIVE); NITRITE, URINE AUTO NEGATIVE (NEGATIVE); PROTEIN, URINE AUTO 1+ mg/dL (NEGATIVE); RBC, URINE AUTO 0 /HPF (0-3); SPECIFIC GRAVITY URINE AUTO 1.026 (1.002-1.035); SQUAMOUS EPITHELIAL CELL UR AU 0 /HPF (0-6); UROBILINOGEN, URINE AUTO 0.2 mg/dL (0.0-2.0); WBC, URINE AUTO 1 /HPF (0-3)
[2021-11-16 22:28] VITALS: BP 121/81
== END 2021-11-16 22:39 | disposition home or self-care (01) ==
LOC: M ED 18:30
DX: R50.9 Fever, unspecified (principal); R51.9 Headache, unspecified; U07.1 COVID-19; Z86.69 Personal history of other diseases of the nervous system and sense organs

== ENCOUNTER → 2022-09-21 | Outpatient (REF) | payer OTHER ==
[~2022-09-21] MED LIST changes: -DOXY-350 PO; +DOXY-444 PO
[2022-09-21 18:19] LABS: GC DNA AMPLIFICATION NEGATIVE (NEGATIVE)
== END ==
LOC: M LAB REF 16:27
PROVIDERS: ATTEND Physician Assistant
DX: R30.0 Dysuria (principal); Z20.2 Contact with and (suspected) exposure to infections with a predominantly sexual mode of transmission

== ENCOUNTER → 2022-10-04 | Outpatient (REF) | payer OTHER ==
[2022-10-05 12:24] LABS: GC DNA AMPLIFICATION NEGATIVE (NEGATIVE)
== END ==
LOC: M LAB REF 09:42
PROVIDERS: ATTEND Physician Assistant
DX: R30.0 Dysuria (principal); Z20.2 Contact with and (suspected) exposure to infections with a predominantly sexual mode of transmission

== ENCOUNTER → 2022-10-06 | Outpatient (CLI) | payer OTHER ==
[2022-10-06 20:15] LABS: ALBUMIN 4.2 G/DL (3.2-5.2); ALKALINE PHOSPHATASE 80 U/L (46-116); ALT/SGPT 22 U/L (7.0-40); AST/SGOT 23 U/L (<34); BILIRUBIN,TOTAL 0.3 MG/DL (0.3-1.2); BLOOD UREA NITROGEN 13 MG/DL (9-23); CALCIUM LEVEL 9.4 MG/DL (8.5-10.1); CARBON DIOXIDE LEVEL 30 MMOL/L (20-31); CHLORIDE LEVEL 105 MMOL/L (98-107); CREATININE FOR GFR 0.86 MG/DL (0.70-1.30); GLOMERULAR FILTRATION RATE > 60.0 (>60); GLUCOSE, FASTING 97 MG/DL (60-100); SODIUM LEVEL 139 MMOL/L (136-145); TOTAL PROTEIN 6.8 G/DL (5.7-8.2)
[2022-10-06 20:16] LABS: BASO % 0.8 % (0.0-1.0); EOS # 0.2 10^3/uL (0.0-0.5); HEMATOCRIT 42.3 % (42.0-52.0); HEMOGLOBIN 14.4 g/dl (13.5-17.5); LYMPH # 1.8 10^3/uL (1.5-5.0); LYMPH % 37.5 % (24.0-44.0); MEAN CORPUSCULAR HEMOGLOBIN 31.2 pg (27.0-33.0); MEAN CORPUSCULAR VOLUME 91.6 fl (80.0-96.0); MONO # 0.4 10^3/uL (0.0-0.8); MONO % 7.9 % (2.0-8.0); NEUTROPHILS # 2.3 10^3/uL (1.5-8.5); NEUTROPHILS % 48.6 % (36.0-66.0); PLATELET COUNT, AUTOMATED 275 10^3/uL (150-450); RED BLOOD COUNT 4.62 10^6/uL (4.30-6.10); VITAMIN B12 LEVEL 550 PG/ML (211-911); WHITE BLOOD COUNT 4.8 10^3/uL (4.0-10.0)
[2022-10-06 20:17] LABS: FOLATE 13.27 NG/ML (>5.4); TOTAL 25(OH) VITAMIN D 42.2 NG/ML (20.0-100.0)
== END ==
LOC: M WUC 15:48
PROVIDERS: ATTEND Psychiatry & Neurology Neurology
DX: G37.3 Acute transverse myelitis in demyelinating disease of central nervous system (principal)

== ENCOUNTER → 2023-04-23 | Outpatient (REF) | payer OTHER ==
[~2023-04-23] MED LIST changes: +SENN-111 PO; -SENN18TA PO
[2023-04-23 20:04] LABS: GC DNA AMPLIFICATION NEGATIVE (NEGATIVE)
== END ==
LOC: M WUC 17:38
PROVIDERS: ATTEND Physician Assistant
DX: Z20.2 Contact with and (suspected) exposure to infections with a predominantly sexual mode of transmission (principal); R30.0 Dysuria

== ENCOUNTER → 2024-07-11 | Outpatient (CLI) | payer OTHER ==
[~2024-07-11] MED LIST changes: +DOXY-440 PO; -DOXY-444 PO; +GABA-1172 PO; -GABA-282 PO; -SENN-111 PO; +SENN-165 PO
[2024-07-11 16:24] LABS: LIPASE 41 U/L (12-53)
[2024-07-11 16:25] LABS: AMYLASE 83 U/L (30-118)
[2024-07-11 16:27] LABS: ALBUMIN 4.3 G/DL (3.2-5.2); ALKALINE PHOSPHATASE 95 U/L (40-129); ALT/SGPT 18 U/L (7.0-40); AST/SGOT 18 U/L (<34); BILIRUBIN,TOTAL 0.3 MG/DL (0.3-1.2); BLOOD UREA NITROGEN 11 MG/DL (9-23); CALCIUM LEVEL 9.8 MG/DL (8.5-10.1); CARBON DIOXIDE LEVEL 29 MMOL/L (20-31); CHLORIDE LEVEL 106 MMOL/L (98-107); CREATININE FOR GFR 0.81 MG/DL (0.70-1.30); GLOMERULAR FILTRATION RATE > 60.0 (>60); GLUCOSE, FASTING 102 MG/DL (60-100); POTASSIUM SERUM 4.3 MMOL/L (3.5-5.1); SODIUM LEVEL 141 MMOL/L (136-145); TOTAL PROTEIN 7.3 G/DL (5.7-8.2)
[2024-07-11 16:59] LABS: BASO % 0.2 % (0.0-1.0); EOS # 0.4 10^3/uL (0.0-0.5); EOS % 3.4 % (0.0-3.0); HEMATOCRIT 45.4 % (42.0-52.0); HEMOGLOBIN 14.9 g/dl (13.5-17.5); LYMPH # 1.9 10^3/uL (1.5-5.0); LYMPH % 15.4 % (24.0-44.0); MEAN CORPUSCULAR HEMOGLOBIN 30.5 pg (27.0-33.0); MEAN CORPUSCULAR HGB CONC 32.8 g/dl (32.0-36.5); MEAN CORPUSCULAR VOLUME 92.8 fl (80.0-96.0); MONO # 1.1 10^3/uL (0.0-0.8); MONO % 8.7 % (2.0-8.0); NEUTROPHILS # 8.8 10^3/uL (1.5-8.5); PLATELET COUNT, AUTOMATED 275 10^3/uL (150-450); RED BLOOD COUNT 4.89 10^6/uL (4.30-6.10); WHITE BLOOD COUNT 12.2 10^3/uL (4.0-10.0)
[2024-07-11 19:34] LABS: Trichomonas vaginalis (AMP) NOT DETECTED (NEGATIVE)
[2024-07-11 19:58] LABS: GC DNA AMPLIFICATION NEGATIVE (NEGATIVE)
== END ==
LOC: M WUC 10:40
PROVIDERS: ATTEND Physician Assistant
DX: R10.84 Generalized abdominal pain (principal); R30.0 Dysuria; K56.41 Fecal impaction

== ENCOUNTER → 2024-07-31 | Outpatient (CLI) | payer OTHER | LOC: M RAD 14:02 | PROVIDERS: ATTEND Student in an Organized Health Care Education/Training Program | DX: R32 Unspecified urinary incontinence (principal); R31.9 Hematuria, unspecified ==

== ENCOUNTER → 2024-08-16 | Outpatient (CLI) | payer OTHER ==
[2024-08-16 17:42] LABS: APPEARANCE, URINE CLEAR (CLEAR); BACTERIA, URINE AUTO NEGATIVE (NEGATIVE); BILIRUBIN, URINE AUTO NEGATIVE (NEGATIVE); BLOOD, URINE BLOOD NEGATIVE (NEGATIVE); COLOR, URINE YELLOW (YELLOW); GLUCOSE, URINE (UA) AUTO NEGATIVE (NEGATIVE); KETONE, URINE AUTO NEGATIVE (NEGATIVE); LEUKOCYTE ESTERASE, URINE AUTO NEGATIVE (NEGATIVE); MUCUS, URINE SMALL (NEGATIVE); NITRITE, URINE AUTO NEGATIVE (NEGATIVE); PROTEIN, URINE AUTO NEGATIVE (NEGATIVE); RBC, URINE AUTO 1 /HPF (0-3); SPECIFIC GRAVITY URINE AUTO 1.025 (1.002-1.035); SQUAMOUS EPITHELIAL CELL UR AU 0 /HPF (0-6); UROBILINOGEN, URINE AUTO 0.2 mg/dL (0.0-2.0); WBC, URINE AUTO 1 /HPF (0-3)
[2024-08-16 17:49] LABS: BASO # 0.1 10^3/uL (0.0-0.2); BASO % 0.8 % (0.0-1.0); EOS # 0.7 10^3/uL (0.0-0.5); EOS % 11.1 % (0.0-3.0); HEMATOCRIT 44.9 % (42.0-52.0); HEMOGLOBIN 15.2 g/dl (13.5-17.5); LYMPH # 2.5 10^3/uL (1.5-5.0); LYMPH % 40.2 % (24.0-44.0); MEAN CORPUSCULAR HGB CONC 33.9 g/dl (32.0-36.5); MEAN CORPUSCULAR VOLUME 91.6 fl (80.0-96.0); MONO # 0.5 10^3/uL (0.0-0.8); MONO % 8.5 % (2.0-8.0); NEUTROPHILS # 2.4 10^3/uL (1.5-8.5); NEUTROPHILS % 39.2 % (36.0-66.0); PLATELET COUNT, AUTOMATED 254 10^3/uL (150-450); WHITE BLOOD COUNT 6.1 10^3/uL (4.0-10.0)
[2024-08-16 17:57] LABS: HEMOGLOBIN A1c 5.3 % (4.0-6.0)
[2024-08-16 18:15] LABS: BLOOD UREA NITROGEN 18 MG/DL (9-23); CARBON DIOXIDE LEVEL 30 MMOL/L (20-31); CHLORIDE LEVEL 104 MMOL/L (98-107); GLOMERULAR FILTRATION RATE > 60.0 (>60); GLUCOSE, FASTING 85 MG/DL (60-100); POTASSIUM SERUM 4.9 MMOL/L (3.5-5.1); SODIUM LEVEL 141 MMOL/L (136-145)
== END ==
LOC: M PLALAB 16:53
PROVIDERS: ATTEND Student in an Organized Health Care Education/Training Program
DX: R30.0 Dysuria (principal)

== ENCOUNTER → 2024-12-04 | Outpatient (REF) | payer OTHER | LOC: M SFHCPLAZ 08:33 | PROVIDERS: ATTEND Family Medicine | DX: G37.3 Acute transverse myelitis in demyelinating disease of central nervous system (principal) ==

== ENCOUNTER → 2025-05-08 | Outpatient (CLI) | payer OTHER | LOC: M WUC 12:02 | DX: M79.645 Pain in left finger(s) (principal) ==